=== PATIENT | female | born 1980 | race Caucasian/White ===

== ENCOUNTER 2022-02-08 10:00 | Outpatient (RCR) | payer BC, SELFPAY | END 2022-04-02 14:36 | disposition home or self-care (01) | PROVIDERS: PCP Family Medicine; Visit Provider Family Medicine | DX: M25.519 Pain in unspecified shoulder (principal); Z51.89 Encounter for other specified aftercare | CPT/HCPCS: 97032; 97110; 97162 ==

== ENCOUNTER 2022-08-28 19:47 | Emergency (ER) | payer OTHER, SELFPAY ==
[2022-08-28 19:51] VITALS: BP 140/86; PULSE 102; RESP 18; TEMP 36.5; O2SAT 98; BMI 27.1
--- NOTE | 2022-08-28 20:09 | CRLHL7_ITS ---
For Patients: As a result of the Cures Act, medical imaging exams and procedure reports are released immediately into your electronic medical record. You may view this report before your referring provider. If you have questions, please contact your health care provider. INDICATION: Twisted upon falling, knee injury TECHNIQUE: Knee radiograph 4 views left COMPARISON: None FINDINGS: Bone: No acute fractures or aggressive bone lesions are identified. A prominent femoral condylar notch is noted. Joint: The medial, lateral, and patellofemoral compartments are unremarkable. No significant knee effusion is seen. Soft tissue: Unremarkable. No radiopaque foreign bodies are seen. IMPRESSIONS: 1. A prominent femoral condylar notch is noted. This can be associated with ACL injury and correlation with trauma history is recommended. Dictated by Colin Conner MD @ 08/28/2022 9:14:50 PM Dictated by: Colin Conner MD @ 08/28/2022 21:14:53 (Electronically Signed)
--- NOTE | 2022-08-28 20:09 | CRLHL7_ITS ---
For Patients: As a result of the Century Cures Act, medical imaging exams and procedure reports are released immediately into your electronic medical record. You may view this report before your referring provider. If you have questions, please contact your health care provider. INDICATION: Fall, foot pain, injury TECHNIQUE: Foot radiograph 3 views left COMPARISON: None FINDINGS: Bone: No acute fractures or aggressive bone lesions are identified. A radiographic marker is noted over the dorsal midfoot, designating the site of maximal reported symptoms. Joint: Mild osteoarthritis of the talonavicular joint is noted on the lateral exam. No significant ankle effusion is seen. Soft tissue: Unremarkable. No radiopaque foreign bodies are seen. IMPRESSION: 1. No acute osseous injuries or abnormalities are noted. Dictated by Colin Conner MD @ 08/28/2022 9:15:59 PM Dictated by: Colin Conner MD @ 08/28/2022 21:16:02 (Electronically Signed)
--- NOTE | 2022-08-28 20:10 | ED_ITS ---
HPI - Extremity Injury (Lower) General Chief Complaint: Extremity Pain/Injury, Lower Stated Complaint: Left leg injury Time Seen by Provider: 08/28/22 20:03 History of Present Illness HPI Narrative: This 41-year-old female comes in with an injury to her left lower extremity. She states that she has a little dog at home and was maneuvering to avoid stepping on the dog that was in the way of her path. She slipped on some gravel as she tried to extend her step and fell onto her left knee. She has bruising and swelling over the anterior aspect of her left knee and also has some bruising over the dorsal aspect of her foot near the 3rd 4th and 5th toes. She did not hit her head or have loss of consciousness. She was not able to get up and bear weight on her left lower extremity after this injury. Related Data Home Medications Medication Instructions Recorded Confirmed ibuprofen 400 mg tablet 400 mg PO TID PRN 08/26/21 03/09/22 duloxetine 20 mg capsule,delayed 40 mg PO QDAY 04/28/22 release fluoxetine 10 mg capsule mg PO 08/28/22 Previous Rx's Medication Instructions Recorded buspirone 10 mg tablet 10 mg PO TID #90 tabs 04/23/22 propranolol 20 mg tablet 20 mg PO TID #90 tabs 05/07/22 zolpidem 5 mg tablet 5 mg PO QHS PRN insomnia #30 tabs 05/07/22 sertraline 50 mg tablet 50 mg PO QDAY #30 tabs 05/20/22 gabapentin 100 mg capsule See Rx Instructions PO TID #120 06/08/22 caps sertraline 100 mg tablet 100 mg PO QDAY #90 tabs 06/24/22 hydroxyzine HCl 25 mg tablet 25 mg PO TID PRN anxiety #30 tabs 07/06/22 alprazolam 0.5 mg tablet 0.5 mg PO BID #28 tabs 08/17/22 Crutches- Adult #1 ea 08/28/22 Allergies Allergy/AdvReac Type Severity Reaction Status Date / Time amoxicillin [From Augmentin] Allergy Unknown N/V Verified 04/28/22 09:52 clavulanic acid Allergy Unknown N/V Verified 04/28/22 09:52 [From Augmentin] codeine Allergy Unknown N/V Verified 04/28/22 09:52 lactose Allergy Unknown Verified 04/28/22 09:52 Review of Systems Status of ROS: Reports: 10 or more systems reviewed and unremarkable except as noted in History and below Narrative: Constitutional: No fevers, no weight gain or loss. Eyes: No discharge. No vision changes. HENT: No congestion, no sore throat, no ear pain. Cardiovascular: No chest pain, no palpitations. Respiratory: No shortness of breath, no wheezes, no cough. Gastrointestinal: No abdominal pain, no vomiting, no diarrhea. Genitourinary: No dysuria, no hematuria. Musculoskeletal: Left knee and foot injury as described above. Skin: No rashes, no pruritis. Neurological: No dizziness, weakness, sensory change, speech change. Endo/Heme/Allergies: No bruising or bleeding. No polydipsia. Pysch: no suicidality, no anxiety, no insomnia. All other systems reviewed and are negative. [facility] Surgical History History of abdominal supracervical subtotal hysterectomy (2005) History of loop electrosurgical excision procedure (LEEP) of cervix (2003) Status post cholecystectomy Status post colposcopy (08/10/21) Status post partial colectomy Family History Other Breast cancer Diabetes Rheumatoid arteritis Social History Narrative: Former smoker Quit 2016 Smoking Status: Former smoker Little interest or pleasure in doing things: nearly every day Feeling down, depressed, or hopeless: nearly every day Exam Narrative: Exam Narrative: Constitutional: Well-developed, well-nourished, no acute distress. HEENT: Normocephalic, atraumatic. Neck: Normal range of motion. Nontender. Supple. Heart: Regular. No murmurs. Normal rate. Intact distal pulses. Lungs: Clear to auscultation. No chest discomfort. No wheezes, rhonchi, or rales. Abdomen: Normal bowel sounds. Nontender. No rebound tenderness. Genitalia: Deferred. Back: No midline tenderness. Normal range of motion. Extremities: Erythema and some bruising with tenderness and mild swelling over the anterior aspect of the left knee. Bruising with mild swelling over the dorsal aspect of the distal portion of the 3rd 4th and 5th metatarsals of the left foot. Skin: Intact. No rash. Warm. No erythema or pallor. Neurologic: No altered sensation. No weakness. Alert and oriented. Psychiatric: No suicidality. No anxiety or depression. No insomnia. Nursing notes and vitals signs are reviewed. Const: Vital Signs, click to edit/add: Vital Signs - 24 hr 08/28/22 19:51 Temperature 97.7 F Pulse Rate [Pulse Oximeter] 102 H Respiratory Rate 18 Blood Pressure [Le ft Upper Arm] 140/86 H Pulse Oximetry 98 Oxygen Delivery Me thod Room Air Course Vital Signs Vital signs: Initial Vital Signs Temperature 97.7 F 08/28/22 19:51 Temperature Source Temporal Artery Scan 08/28/22 19:51 Pulse Rate 102 H 08/28/22 19:51 Respiratory Rate 18 08/28/22 19:51 Blood Pressure 140/86 H 08/28/22 19:51 Blood Pressure Mean 104 08/28/22 19:51 Blood Pressure Position Supine 08/28/22 19:51 Pulse Oximetry 98 08/28/22 19:51 Oxygen Delivery Method Room Air 08/28/22 19:51 Vital Signs Temperature 97.7 F 08/28/22 19:51 Pulse Rate 102 H 08/28/22 19:51 Respiratory Rate 18 08/28/22 19:51 Blood Pressure 140/86 H 08/28/22 19:51 Pulse Oximetry 98 08/28/22 19:51 Oxygen Delivery Method Room Air 08/28/22 19:51 Temperature 97.7 F 08/28/22 19:51 Pulse Rate 102 H 08/28/22 19:51 Respiratory Rate 18 08/28/22 19:51 Blood Pressure 140/86 H 08/28/22 19:51 Pulse Oximetry 98 08/28/22 19:51 Oxygen Delivery Method Room Air 08/28/22 19:51 MDM - Extremity Injury (Lower) MDM Narrative Medical decision making narrative: This patient has some bruising and pain at her left knee and her left foot. X- ray images by my review in by radiology report show no sign of fracture or dislocation. I was unable to do a good exam to check for ligament instability because the patient's pain was not allowing enough cooperation at the time. She did receive a knee immobilizer and crutches and was able to ambulate with these in place. The patient also received [place] for pain relief. She does have a follow-up appointment with her primary physician at the end of this week. She did receive a prescription for a few more tablets of Tramadol. Imaging Data XR L Knee: Radiologist's impression: 1. A prominent femoral condylar notch is noted. This can be associated with ACL injury and correlation with trauma history is recommended. XR L Foot: Radiologist's impression: No osseous injury. Discharge Plan Discharge Clinical Impression: Injury of foot, left, Injury of knee, left Patient Disposition: Home w/ Parent or Adult Condition: Stable Additional Instructions: Increase activity as tolerated with assistance of knee immobilizer and crutches as needed. Take medication as needed and directed. Follow up with MD as scheduled or return if worsening. Prescriptions: New (DME) Crutches- Adult Misc See Rx Instructions .ROUTE .MEDSUPPLY Qty: 1 0RF Rx Instructions: As directed No Action duloxetine 20 mg capsule,delayed release(DR/EC) 40 mg PO QDAY fluoxetine 10 mg capsule PO ibuprofen 400 mg tablet 400 mg PO TID PRN buspirone 10 mg tablet 10 mg PO TID Qty: 90 3RF zolpidem 5 mg tablet 5 mg PO QHS PRN (Reason: insomnia) Qty: 30 1RF propranolol 20 mg tablet 20 mg PO TID Qty: 90 5RF sertraline 50 mg tablet 50 mg PO QDAY Qty: 30 1RF gabapentin 100 mg capsule See Rx Instructions PO TID Qty: 120 11RF Rx Instructions: 100 mg q.a.m. and Q midday and 200 mg q.h.s. orally; sertraline 100 mg tablet 100 mg PO QDAY Qty: 90 3RF hydroxyzine HCl 25 mg tablet 25 mg PO TID PRN (Reason: anxiety) Qty: 30 5RF alprazolam 0.5 mg tablet 0.5 mg PO BID Qty: 28 0RF Follow Up/Referrals: Ibrahima Sanches MD [Primary Care Provider] - Stand Alone Forms: [facility] Info Instructions
[2022-08-28] MEDS: HYDROCODONE-ACETAMIN 5-325 MG 1 TAB 2 TAB PO (21:05)
== END 2022-08-28 21:22 | disposition home or self-care (01) ==
PROVIDERS: Emergency Provider Emergency Medicine Emergency Medical Services; PCP Family Medicine
DX: M25.562 Pain in left knee (principal); M79.672 Pain in left foot
CPT/HCPCS: 73562; 73630; 99283; 99284; A9270

== ENCOUNTER 2022-09-03 08:28 | Outpatient (CLI) | payer OTHER, SELFPAY | END 2022-09-03 08:29 | disposition home or self-care (01) | PROVIDERS: PCP Family Medicine; Visit Provider Family Medicine | DX: Z00.00 Encounter for general adult medical examination without abnormal findings (principal); Z13.6 Encounter for screening for cardiovascular disorders; Z13.1 Encounter for screening for diabetes mellitus | CPT/HCPCS: 80048; 80061 ==

== ENCOUNTER 2022-09-07 15:51 | Emergency (ER) | payer OTHER, SELFPAY ==
[2022-09-07 16:08] VITALS: BP 125/81; PULSE 93; RESP 20; TEMP 36.6; O2SAT 98; BMI 28.1
--- NOTE | 2022-09-07 20:03 | ED.ANXIETY ---
HPI - Anxiety General Date Seen: 09/07/22 Chief Complaint: Anxiety Stated Complaint: Panic attack Time Seen by Provider: 09/07/22 16:10 Source: patient Mode of arrival: ambulatory Limitations: no limitations History of Present Illness HPI narrative: Patient is a 41-year-old female who struggles with chronic anxiety. She recently was switched from sertraline 150 mg daily to Prozac 10 mg daily as she did not feel that the sertraline was working any longer. There is no plan to titrate the Prozac dose upward. Over the past month she has continued to worsen. She denies depression but has severe anxiety on a daily basis. She is having panic attacks on a daily basis. She is using Xanax once or twice a day but it does not seem to be making a difference. She is continuing to go to work but otherwise just sits at home and worries. She is sleeping poorly, she is not eating, she feels like she is going crazy. No substance use. She has set up an appointment with a therapist next week. Related Data Home Medications Medication Instructions Recorded Confirmed ibuprofen 400 mg tablet 400 mg PO TID PRN 08/26/21 09/03/22 fluoxetine 10 mg capsule 10 mg PO 08/28/22 09/03/22 Previous Rx's Medication Instructions Recorded hydroxyzine HCl 25 mg tablet 25 mg PO TID PRN anxiety #30 tabs 07/06/22 Crutches- Adult #1 ea 08/28/22 alprazolam 0.5 mg tablet 0.5 mg PO BID #28 tabs 09/03/22 fluoxetine 40 mg capsule (Prozac) 40 mg PO QAM #30 caps 09/07/22 lorazepam 1 mg tablet (Ativan) 1 mg PO TID PRN #30 tabs 09/07/22 Allergies Allergy/AdvReac Type Severity Reaction Status Date / Time amoxicillin [From Augmentin] Allergy Unknown N/V Verified 09/07/22 16:17 clavulanic acid Allergy Unknown N/V Verified 09/07/22 16:17 [From Augmentin] codeine Allergy Unknown N/V Verified 09/07/22 16:17 lactose Allergy Unknown Verified 09/07/22 16:17 Review of Systems Narrative: Review of systems is outlined above otherwise noted to be negative. [facility] Medical History Carcinoma in situ of cervix (2003) ?D06.9 - Carcinoma in situ of cervix, unspecified (ICD-10) Adhesive capsulitis ?M75.00 - Adhesive capsulitis of unspecified shoulder (ICD-10) Surgical History Status post cone biopsy of cervix ?Z98.890 - Other specified postprocedural states (ICD-10) Status post colposcopy (08/10/21) ?Z98.890 - Other specified postprocedural states (ICD-10) History of loop electrosurgical excision procedure (LEEP) of cervix (2003) ?Z98.890 - Other specified postprocedural states (ICD-10) History of abdominal supracervical subtotal hysterectomy (2005) ?Z90.711 - Acquired absence of uterus with remaining cervical stump (ICD-10) Status post partial colectomy ?Z90.49 - Acquired absence of other specified parts of digestive tract (ICD-10) Status post cholecystectomy ?Z90.49 - Acquired absence of other specified parts of digestive tract (ICD-10) Family History Other Breast cancer Diabetes Rheumatoid arteritis Social History Narrative: Former smoker Quit 2017 In the past 12 months, utilities in danger of being shut off: no In the past 12 mos, have been you worried that your food would run out before you had money to buy more?: never true In the past 12 mos, the food you bought just didn't last and you didn't have money to buy more?: never true Smoking Status: Former smoker How often do you have a drink containing alcohol: never AUDIT-C Alcohol total score: 0 How often does anyone, including family, friends and others, physically hurt you: never How often does anyone, including family, friends and others, insult or talk down to you: never How often does anyone, including family, friends and others, threaten you with harm: never How often does anyone, including family, friends and others, scream or curse at you: never Little interest or pleasure in doing things: more than half the days Feeling down, depressed, or hopeless: nearly every day Exam Narrative: Exam Narrative: 20 minutes spent with the patient exclusively in counseling. She is tearful and anxious. No abnormal thought processes identified. She is grateful for the explanation that her Prozac dose is much smaller than her sertraline dose was and I think that is likely responsible for her worsening symptoms. She may have some tolerance buildup to Xanax and would do better on a different medication in the short term. Const: Vital Signs, click to edit/add: Vital Signs - 24 hr 09/07/22 16:08 Temperature 97.8 F Pulse Rate [Pulse Oximeter] 93 Respiratory Rate 20 Blood Pressure [Ri ght Upper Arm] 125/81 Pulse Oximetry 98 Oxygen Delivery Me thod Room Air Course Course Hospital Course: Patient was seen and examined and we had a good discussion. No formal physical exam was done. Vital Signs Vital signs: Initial Vital Signs Temperature 97.8 F 09/07/22 16:08 Temperature Source Temporal Artery Scan 09/07/22 16:08 Pulse Rate 93 09/07/22 16:08 Pulse Rhythm Regular 09/07/22 16:08 Pulse Strength 3+ Normal 09/07/22 16:08 Respiratory Rate 20 09/07/22 16:08 Blood Pressure 125/81 09/07/22 16:08 Blood Pressure Mean 95 09/07/22 16:08 Blood Pressure Position Sitting 09/07/22 16:08 Pulse Oximetry 98 09/07/22 16:08 Oxygen Delivery Method Room Air 09/07/22 16:08 Vital Signs Temperature 97.8 F 09/07/22 16:08 Pulse Rate 93 09/07/22 16:08 Respiratory Rate 20 09/07/22 16:08 Blood Pressure 125/81 09/07/22 16:08 Pulse Oximetry 98 09/07/22 16:08 Oxygen Delivery Method Room Air 09/07/22 16:08 Temperature 97.8 F 09/07/22 16:08 Pulse Rate 93 09/07/22 16:08 Respiratory Rate 20 09/07/22 16:08 Blood Pressure 125/81 09/07/22 16:08 Pulse Oximetry 98 09/07/22 16:08 Oxygen Delivery Method Room Air 09/07/22 16:08 Discharge Plan Discharge Clinical Impression: Acute anxiety Patient Disposition: Home, Self-Care Condition: Improved Additional Instructions: Increase Prozac to 20 mg daily for one week and then increase to 40 mg daily. The switch from Xanax to Ativan 1 mg 3 times daily as needed. Keep your follow-up appointment with your psychologist. Follow-up with Dr. Sanches in 2-3 weeks. Prescriptions: New fluoxetine [Prozac] 40 mg capsule 40 mg PO QAM Qty: 30 0RF lorazepam [Ativan] 1 mg tablet 1 mg PO TID PRNQty: 30 0RF No Action fluoxetine 10 mg capsule 10 mg PO (DME) Crutches- Adult Misc See Rx Instructions .ROUTE .MEDSUPPLY Qty: 1 0RF Rx Instructions: As directed ibuprofen 400 mg tablet 400 mg PO TID PRN hydroxyzine HCl 25 mg tablet 25 mg PO TID PRN (Reason: anxiety) Qty: 30 5RF alprazolam 0.5 mg tablet 0.5 mg PO BID Qty: 28 0RF Follow Up/Referrals: Ibrahima Sanches MD [Primary Care Provider] - Stand Alone Forms: [facility] Info Instructions
== END 2022-09-07 17:59 | disposition home or self-care (01) ==
PROVIDERS: Emergency Provider Family Medicine; PCP Family Medicine
DX: F41.9 Anxiety disorder, unspecified (principal)
CPT/HCPCS: 99282; 99283

== ENCOUNTER 2022-09-14 13:11 | Outpatient (CLI) | payer OTHER, SELFPAY | END 2022-09-14 13:12 | disposition home or self-care (01) | LOC: NFLDREF 09-15 08:45 | PROVIDERS: PCP Family Medicine; Referring Provider Family Medicine; Visit Provider Family Medicine | DX: R19.7 Diarrhea, unspecified (principal) | CPT/HCPCS: 87045; 87046; 87077; 87427; 87493 ==

== ENCOUNTER 2022-09-15 15:05 | Outpatient (CLI) | payer OTHER, SELFPAY | END 2022-09-15 15:06 | disposition home or self-care (01) | LOC: NFLDREF 09-16 05:50 | PROVIDERS: PCP Family Medicine; Referring Provider Family Medicine; Visit Provider Family Medicine | DX: R19.7 Diarrhea, unspecified (principal) | CPT/HCPCS: 87493 ==

== ENCOUNTER 2022-09-18 16:22 | Outpatient (CLI) | payer OTHER, SELFPAY | END 2022-09-18 16:23 | disposition home or self-care (01) | LOC: AMB 09-19 09:33 | PROVIDERS: PCP Family Medicine; Visit Provider Family Medicine | DX: R51.9 Headache, unspecified (principal) | CPT/HCPCS: A0425; A0427 ==

== ENCOUNTER 2022-09-18 16:47 | Emergency (ER) | payer OTHER, SELFPAY ==
[2022-09-18] VITALS (37 sets, daily range): BP systolic 102–125; BP diastolic 64–90; PULSE 62–118; RESP 16–18; TEMP 36.1; O2SAT 94–99; BMI 28.6
--- NOTE | 2022-09-18 16:58 | CRLHL7_ITS ---
For Patients: As a result of the Cures Act, medical imaging exams and procedure reports are released immediately into your electronic medical record. You may view this report before your referring provider. If you have questions, please contact your health care provider. INDICATION: Syncope, closed head injury TECHNIQUE: CT maxillofacial without contrast. COMPARISON: None FINDINGS: Facial bones: No fractures or bone lesions. Specifically the nasal bones, temporomandibular joints, maxilla and mandible appear intact. Orbits and globes: Unremarkable. Globes are intact. No sign of intraorbital hemorrhage or emphysema. Sinuses: No acute or significant findings. Soft tissues: Unremarkable. IMPRESSION: No facial bone fractures. Normal exam. Please note that all CT scans at this facility use dose modulation, iterative reconstruction, and/or weight-based dosing when appropriate to reduce radiation dose to as low as reasonably achievable. Dictated by Clinton Riojas MD @ 09/18/2022 6:27:06 PM (Electronically Signed)
--- NOTE | 2022-09-18 16:58 | CRLHL7_ITS ---
For Patients: As a result of the Century Cures Act, medical imaging exams and procedure reports are released immediately into your electronic medical record. You may view this report before your referring provider. If you have questions, please contact your health care provider. INDICATION: Syncope. Closed head injury. TECHNIQUE: CT head without contrast. COMPARISON: 04/05/[address] FINDINGS: CSF spaces: Within normal limits for age. Brain parenchyma and extra-axial spaces: The mccloud-white differentiation is normal. No sign of mass, hemorrhage, or midline shift. No extra-axial fluid collection. Skull base and calvarium: The visualized paranasal sinuses and mastoid air cells demonstrate no acute or significant findings. The visualized orbits are grossly unremarkable. No skull fractures. IMPRESSION: No acute intracranial findings. Please note that all CT scans at this facility use dose modulation, iterative reconstruction, and/or weight-based dosing when appropriate to reduce radiation dose to as low as reasonably achievable. Dictated by Clinton Riojas MD @ 09/18/2022 6:16:10 PM (Electronically Signed)
--- NOTE | 2022-09-18 16:59 | CRLHL7_ITS ---
For Patients: As a result of the Century Cures Act, medical imaging exams and procedure reports are released immediately into your electronic medical record. You may view this report before your referring provider. If you have questions, please contact your health care provider. INDICATION: Syncope, closed head injury TECHNIQUE: CT cervical spine without contrast. COMPARISON: 04/05/[address] FINDINGS: Vertebrae: Alignment is normal. There are no fractures or suspicious bony lesions. Discs and facet joints: Disc spaces and facets are within normal limits. Extraspinal findings: Prevertebral soft tissues, visualized airway, and visualized lungs are unremarkable. IMPRESSION: Normal cervical spine CT. Please note that all CT scans at this facility use dose modulation, iterative reconstruction, and/or weight-based dosing when appropriate to reduce radiation dose to as low as reasonably achievable. Dictated by Clinton Riojas MD @ 09/18/2022 6:20:23 PM (Electronically Signed)
--- NOTE | 2022-09-18 17:12 | ED_ITS ---
HPI - General Adult General Chief complaint: Syncope/Fainted Stated complaint: Fall Time Seen by Provider: 09/18/22 16:58 History of Present Illness HPI narrative: pt started doxazosin 09/15. today had syncopal episode at home alone, hit doorway woke up to dogs licking her face. lac to R brow. tried driving slf to hospital. had to stop at [place] due to bleeding. c-collar on, ems gave pt 50 + 25 of fentanyl 41-year-old woman presenting to the emergency department [facility] the EMS after syncope in her home of unclear origin or down time. Recently did start a new medication of doxazosin. She has no known cardiac disease or dysrhythmia. No history of seizures. On further discussion later denies suicidal ideation. Admittedly struggling with anxieties. Brought in via EMS [facility]. Is able to recount these events eventually. Head on our prior taken new prescription of doxazosin. It sounds like notes this because upon prescription provider head said that this could contribute to some lightheadedness. She had finished putting on her makeup and doubly subsequently had just gotten up to return to the bathroom when became lightheaded and fell against the door way. Will to dog licking her face which was apparently bloody. She try to drive herself to the hospital but due to bleeding and possibly lightheadedness stopped at [facility] police department assisted ultimately by EMS. Placed in C- collar at that time given fentanyl. She is requesting more pain medication complaining of very intense headache. No visual disturbance. Some nausea. No neck or back pain. No abdominal pain. No shortness of breath. Has been having some loose/diarrheal stools absent melena or hematochezia for some time. Related Data Home Medications Medication Instructions Recorded Confirmed ibuprofen 400 mg tablet 400 mg PO TID PRN 08/26/21 09/03/22 fluoxetine 10 mg capsule 10 mg PO 08/28/22 09/03/22 Previous Rx's Medication Instructions Recorded hydroxyzine HCl 25 mg tablet 25 mg PO TID PRN anxiety #30 tabs 07/06/22 Crutches- Adult #1 ea 08/28/22 alprazolam 0.5 mg tablet 0.5 mg PO BID #28 tabs 09/03/22 fluoxetine 40 mg capsule (Prozac) 40 mg PO QAM #30 caps 09/07/22 peg 3350-electrolytes 236 240 ml PO Q10M #4,000 mL 09/14/22 gram-22.74 gram-6.74 gram-5.86 gram solution (Golytely) lorazepam 1 mg tablet (Ativan) See Rx Instructions PO .ud PRN 09/15/22 anxiety #30 tabs potassium chloride 20 mEq 20 meq PO DAILY #15 tabs 09/18/22 tablet,extended release Allergies Allergy/AdvReac Type Severity Reaction Status Date / Time amoxicillin [From Augmentin] Allergy Unknown N/V Verified 09/07/22 16:17 clavulanic acid Allergy Unknown N/V Verified 09/07/22 16:17 [From Augmentin] codeine Allergy Unknown N/V Verified 09/07/22 16:17 lactose Allergy Unknown Verified 09/07/22 16:17 Review of Systems Status of ROS: Reports: 6 or more systems reviewed and unremarkable except as noted in History and below [facility] Medical History Carcinoma in situ of cervix (2003) ?D06.9 - Carcinoma in situ of cervix, unspecified (ICD-10) Adhesive capsulitis ?M75.00 - Adhesive capsulitis of unspecified shoulder (ICD-10) Surgical History Status post cone biopsy of cervix ?Z98.890 - Other specified postprocedural states (ICD-10) Status post colposcopy (08/10/21) ?Z98.890 - Other specified postprocedural states (ICD-10) History of loop electrosurgical excision procedure (LEEP) of cervix (2003) ?Z98.890 - Other specified postprocedural states (ICD-10) History of abdominal supracervical subtotal hysterectomy (2005) ?Z90.711 - Acquired absence of uterus with remaining cervical stump (ICD-10) Status post partial colectomy ?Z90.49 - Acquired absence of other specified parts of digestive tract (ICD- 10) Status post cholecystectomy ?Z90.49 - Acquired absence of other specified parts of digestive tract (ICD- 10) Family History Other Breast cancer Diabetes Rheumatoid arteritis Social History Narrative: Former smoker Quit 2017 In the past 12 months, utilities in danger of being shut off: no In the past 12 mos, have been you worried that your food would run out before you had money to buy more?: never true In the past 12 mos, the food you bought just didn't last and you didn't have money to buy more?: never true Smoking Status: Former smoker Do you use any of these nicotine containing products: None How often do you have a drink containing alcohol: never AUDIT-C Alcohol total score: 0 Non-prescribed substance use: denies use How often does anyone, including family, friends and others, physically hurt you : never How often does anyone, including family, friends and others, insult or talk down to you: never How often does anyone, including family, friends and others, threaten you with harm: never How often does anyone, including family, friends and others, scream or curse at you: never Little interest or pleasure in doing things: more than half the days Feeling down, depressed, or hopeless: nearly every day Exam Narrative: Exam Narrative: Generally blunted, flatter affect. Pleasant. Distant. In a C-collar. Little over 3/4 inch laceration at the outer 3rd of the right eyebrow. More of a scrape and intradermal laceration. Linear. Diagonal. There is a tag at the upper aspect. Dried blood over the right side of her face though. Extraocular movements are intact and fluid without nystagmus.Moving all extremities without difficulty. Dentition intact. No fluid at external ear canal. Breathing easily. Lungs are clear. Has no pain to palpation about the back. No deformity. Heart in an elevated rate without murmur rub or gallop. Regular rhythm. Abdomen is soft and nontender. Const: Vital Signs, click to edit/add: Vital Signs - 24 hr 09/18/22 16:50 09/18/22 16:58 Temperature 96.9 F L Pulse Rate [Pulse Oximeter] 118 H Respiratory Rate 18 Blood Pressure [Ri ght Upper Arm] 125/85 Pulse Oximetry 94 96 Oxygen Delivery Me thod Room Air Documenting provider has reviewed patient's vital signs: yes Course Vital Signs Vital signs: Initial Vital Signs Temperature 96.9 F L 09/18/22 16:50 Temperature Source Temporal Artery Scan 09/18/22 16:50 Pulse Rate 118 H 09/18/22 16:50 Respiratory Rate 18 09/18/22 16:50 Blood Pressure 125/85 09/18/22 16:50 Blood Pressure Mean 98 09/18/22 16:50 Blood Pressure Position Supine 09/18/22 16:50 Pulse Oximetry 94 09/18/22 16:50 Oxygen Delivery Method Room Air 09/18/22 16:50 Vital Signs Temperature 96.9 F L 09/18/22 16:50 Pulse Rate 118 H 09/18/22 16:50 Respiratory Rate 18 09/18/22 16:50 Blood Pressure 125/85 09/18/22 16:50 Pulse Oximetry 94 09/18/22 16:50 Oxygen Delivery Method Room Air 09/18/22 16:50 Temperature 96.9 F L 09/18/22 16:50 Pulse Rate 73 09/18/22 22:04 Respiratory Rate 16 09/18/22 22:04 Blood Pressure 111/77 09/18/22 22:04 Pulse Oximetry 99 09/18/22 22:04 Oxygen Delivery Method Room Air 09/18/22 22:04 Medical Decision Making MDM Narrative Medical decision making narrative: Cecily does endorse having a new therapist locally last name I believe is Ap. She does endorse Dr. Sanches as primary care provider. She does describe not entirely amiable relationship at home. What brings her here today does sound to have been an orthostatic event. This is also in the setting of diarrhea and probably some degree of dehydration. Did spend some time in conversation with who arrives later. Has been expressing some concerns of distant and erratic behavior. Not sticking with treatment as prescribed. Jumping from provider to provider and medication. Family is concerned. He describes marked mood lability. says he just wants to have his back the way she used to be. He is wondering what they can do. Apparently there has been recent discovery of some return of cervical cancer which believes is adding to stress. There is some question of suicidal ideation. And labs are essentially unremarkable. Potassium the little bit low at 3.1. Do not think will tolerate IV replacement. CT of head is requested but also cervical spine has I think the degree of pain she is describing might be distracting. Also ordered for facial bones. All imaging by my read and radiology over-read is absent acute abnormality. I do return to address this easily bleeding laceration. Discuss treatment options. This is almost 2 mm wide and so I think that this results in scar would be rather noticeable within the eyebrow. Recommendation actually is for more closure than pressure and Band-Aid or even Steri-Strips. I do not think Steri-Strips will provide closure assistance. After discussion of options we do proceed with suturing. Returned to inject with lidocaine with epinephrine. Undermined tissue with scalpel and closed with 5-0 Ethilon interrupted sutures. Markedly improved wound approximation is achieved. Only lightly oozing blood. Antibiotic ointment and Band-Aid placed. Initiated on IV fluids antiemetics and lower dose morphine. Apparently does not help the headache. Further given another L of fluids, ketorolac and was ordered for [facility] but after further discussion of options ultimately was given low- dose/pain dose ketamine. Cecily think this particular interested in this for potential benefit for depression. While not disclosing much, I think her discussing this further does demonstrate some insight into her current situation. Pain seemed to be improved. Was able to rest. See patient discharge plan. Medical Records Medical records reviewed: Yes I reviewed the patient's medical records Lab Data Lab results reviewed: Yes I reviewed the patient's lab results Labs: Lab Results 09/18/22 Range/Units 17:08 WBC 4.88 (4.50-11.00) K/uL RBC 4.29 (4.00-5.20) m/uL Hgb 12.8 (12.0-16.0) gm/dL Hct 37.2 (33.0-51.0) % MCV 87 (80-100) fL MCH 30 (26-34) pg MCHC 34 (32-36) gm/dL RDW Coeff of Makenna 12.8 (11.5-15.5) % Plt Count 209 (140-440) K/uL Neut % (Auto) 69.3 (42.0-72.0) % Lymph % (Auto) 25.0 (20-44) % Hawkins % (Auto) 4.3 (0.0-11.0) % Eos % (Auto) 1.2 (0.0-7.0) % Baso % (Auto) 0.2 (0.0-3.0) % Neut # (Auto) 3.38 (1.7-7.0) K/uL Lymph # (Auto) 1.22 (0.90-2.90) K/uL Hawkins # (Auto) 0.20 (0.00-0.90) K/UL Eos # (Auto) 0.06 (0.00-0.50) K/uL Baso # (Auto) 0.01 (0.00-0.30) K/uL Abs Immat Gran (auto) 0.00 (0.00-0.30) K/uL Imm/Tot Granulo (auto) 0.0 % D-Dimer Quant (PE/DVT) 0.27 (0.00-0.50) ug/ml Sodium 138 (135-149) mmol/L Potassium 3.1 L (3.6-5.1) mmol/L Chloride 103 (96-114) mmol/L Carbon Dioxide 25 (20-32) mmol/L BUN 11 (5-24) mg/dL Creatinine 1.0 (0.5-1.5) mg/dL Estimated Creat Clear 70.71 Estimated GFR 73 ml/min Glucose 100 (60-115) mg/dL Calcium 9.0 (8.4-10.6) mg/dL Total Bilirubin 1.3 (0.1-1.5) mg/dL Direct Bilirubin 0.1 (0.0-0.5) mg/dL AST 25 (12-35) U/L ALT 23 (4-35) U/L Alkaline Phosphatase 63 (40-150) U/L Troponin I < 0.01 L (0.01-0.04) ng/mL C-Reactive Protein < 0.5 L (0.5-1.0) mg/dL NT-Pro-B Natriuret Pep < 20 pg/mL Total Protein 7.3 (6.0-8.3) g/dL Albumin 4.3 (3.3-5.0) g/dL POC Troponin I 0.00 L (0.01-0.04) ng/ml ECG Data Attestation: I personally reviewed and interpreted this ECG as follows: (Sinus tachycardia at 118 with prominent P wave) Critical Care Time Critical Care Time Critical Care Time: Yes Attestation: The patient required my highest level preparedness to intervene emergently and I personally spent this critical care time directly and personally managing the patient. This critical care time included: Obtaining a history; Examining the patient; Pulse oximetry; Ordering and reviewing of studies; Arranging urgent treatment with development of a management plan; Evaluation of patients response to treatment; Frequent reassessment discussions with other providers. This critical care time was performed to assess and manage the high probability of imminent life-threatening deterioration that could result in multiorgan failure. It was exclusive of separate billable procedures and treating other patients and teaching time. Total Critical Care Time in Minutes: 55 Discharge Plan Discharge Clinical Impression: Closed head injury, Diarrhea, Orthostatic syncope, Hypokalemia, Laceration of brow without complication Patient Disposition: Home w/ Parent or Adult Condition: Improved Additional Instructions: sutures out in 6 days. antibiotic ointment for 3 days and then to a dry dressing. ok to get wet but try not to soak while sutures are in. for further scar reduction/wound healing if desired -- after the scab falls off, can apply daily vitamin e oil, emu oil or something like maderma or silicone-containing ointments or bandaids daily. especially protect from sun exposure for the first 9 - 12 months. Watch for spreading redness after 2 days accompanied by heat, swelling, marked increase in pain, purulent drainage. Please follow-up with Dr. Sanches and your psychiatric care provider, I believe you told me Daun?, this coming week. I have prescribed some potassium for you over this next week and I am asking you to get your labs rechecked after that. Take loperamide for diarrhea unless you notice blood in your stool or are having a fever. Focus on hydration. Be sure to get quality and regular sleep. A little heart pumping exercise daily I think would be helpful generally for you. Take care in transitions though especially as you start taking this doxazosin regularly Signs or symptoms of a concussion might be nausea or headache upon exertion which can also be an indication to back off that level of activity and reassess in a week.? Concussion can also be represented by smoldering nausea or smoldering headache, difficulty with concentration, mood lability general somnolence, sense of persistent fog or dizziness/lightheadedness.? If these symptoms are becoming apparent and continuing beyond 7-10 days, be re-evaluated for further recommendations. Prescriptions: New potassium chloride 20 mEq tablet extended release 20 meq PO DAILY Qty: 15 0RF No Action fluoxetine [Prozac] 40 mg capsule 40 mg PO QAM Qty: 30 0RF fluoxetine 10 mg capsule 10 mg PO (DME) Crutches- Adult Misc See Rx Instructions .ROUTE .MEDSUPPLY Qty: 1 0RF Rx Instructions: As directed ibuprofen 400 mg tablet 400 mg PO TID PRN hydroxyzine HCl 25 mg tablet 25 mg PO TID PRN (Reason: anxiety) Qty: 30 5RF alprazolam 0.5 mg tablet 0.5 mg PO BID Qty: 28 0RF peg 3350-electrolytes [Golytely] 236-22.74-6.74 -5.86 gram recon soln 240 ml PO Q10M Qty: 4000 0RF Rx Instructions: until fecal effluent is clear lorazepam [Ativan] 1 mg tablet See Rx Instructions PO .ud PRN (Reason: anxiety) Qty: 30 0RF Rx Instructions: 1/2 tablet morning and midday, and 1 tablet at bedtime, prn. Must last 2 weeks orally Follow Up/Referrals: Ibrahima Sanches MD [Primary Care Provider] - (Dr. Sanches. Family expressing concerns regarding this patient's mental health. Was seen for unrelated trauma I think in the ER. I've asked her to follow up with you. Thank you. - Lilly) Stand Alone Forms: [facility] Info Instructions
[2022-09-18 17:24] LABS: Basophils Absolute Auto 0.01 K/uL (0.00-0.30); Basophils Percent Auto 0.2 % (0.0-3.0); Eosinophils Absolute Auto 0.06 K/uL (0.00-0.50); Eosinophils Percent Auto 1.2 % (0.0-7.0); Hematocrit 37.2 % (33.0-51.0); Hemoglobin* 12.8 gm/dL (12.0-16.0); Lymphocytes Absolute Auto 1.22 K/uL (0.90-2.90); Mean Corpuscular HGB Conc 34 gm/dL (32-36); Mean Corpuscular Hemoglobin 30 pg (26-34); Mean Corpuscular Volume 87 fL (80-100); Monocytes Percent Auto 4.3 % (0.0-11.0); Neutrophils Absolute Auto 3.38 K/uL (1.7-7.0); Neutrophils Percent Auto 69.3 % (42.0-72.0); Platelet Count* 209 K/uL (140-440); RDW Coefficient of Variation % 12.8 % (11.5-15.5); Red Blood Count 4.29 m/uL (4.00-5.20); White Blood Count* 4.88 K/uL (4.50-11.00)
[2022-09-18 17:26] LABS: Slide Review Reflex No
[2022-09-18 17:42] LABS: D Dimer Quantitative* 0.27 ug/ml (0.00-0.50)
[2022-09-18 17:52] LABS: Albumin* 4.3 g/dL (3.3-5.0); Chloride* 103 mmol/L (96-114); Potassium* 3.1 mmol/L (3.6-5.1); Sodium* 138 mmol/L (135-149)
[2022-09-18] MEDS: ONDANSETRON 2 MG/ML inj 4 MG IVP (17:52)
[2022-09-18] MEDS: 0.9 % SODIUM CHLORIDE 1000 ml 1,000 ML IV ×2 (17:52→19:48)
[2022-09-18] MEDS: MORPHINE 4 MG/ML INJ IVP (17:52)
[2022-09-18 17:54] LABS: Est. Creatinine Clearance* 70.71; Estimated Glomerular Filt Rate 73 ml/min
[2022-09-18 17:55] LABS: Alkaline Phosphatase* 63 U/L (40-150); Aspartate Amino Transferase* 25 U/L (12-35); Bilirubin Direct* 0.1 mg/dL (0.0-0.5); Bilirubin Total* 1.3 mg/dL (0.1-1.5); Blood Urea Nitrogen* 11 mg/dL (5-24); Carbon Dioxide* 25 mmol/L (20-32); Total Protein* 7.3 g/dL (6.0-8.3)
[2022-09-18 17:56] LABS: Alanine Aminotransferase* 23 U/L (4-35); Glucose* 100 mg/dL (60-115)
[2022-09-18] MEDS: HYDROmorphone 0.5 mg/0.5 ml inj IVP (18:13)
[2022-09-18 18:21] LABS: NT Pro B Type NatriureticPept* < 20 pg/mL; Troponin I* < 0.01 ng/mL (0.01-0.04)
[2022-09-18 18:22] LABS: C Reactive Protein* < 0.5 mg/dL (0.5-1.0)
[2022-09-18] MEDS: KETOROLAC 15 MG/ML inj IVP (19:48)
== END 2022-09-18 22:15 | disposition home or self-care (01) ==
PROVIDERS: Emergency Provider Family Medicine; PCP Family Medicine
DX: R55 Syncope and collapse (principal); S01.111A Laceration without foreign body of right eyelid and periocular area, initial encounter; E87.6 Hypokalemia; W19.XXXA Unspecified fall, initial encounter
CPT/HCPCS: 12011; 36415; 70450; 70486; 72125; 80048; 80076; 83880; 84484; 85025; 85379; 86140; 94761; 96365; 96375; 99284; 99291; J1170; J1885; J2270; J2405; J3490; J7030

== ENCOUNTER 2022-09-20 14:05 | Emergency (ER) | payer OTHER, SELFPAY ==
[2022-09-20 14:11] VITALS: BP 126/87; PULSE 82; RESP 14; TEMP 37.1; O2SAT 98; BMI 28.6
--- NOTE | 2022-09-20 14:41 | ED.HEATRA ---
HPI - Head Injury General Date Seen: 09/20/22 Chief complaint: Head Injury/Pain Stated complaint: pain over R eye Time Seen by Provider: 09/20/22 14:06 Source: patient Mode of arrival: ambulatory Limitations: no limitations History of Present Illness HPI Narrative: Patient is a 41-year-old female who was seen 2 days ago in the ER after a fall, at that point she had a CT of her head face and neck, all of which was interpreted by Radiology as normal, she has ongoing right-sided pain behind her right eye, she describes it almost double vision when she closes her left eye. She has pain radiates down her right side of her neck. She has no numbness tingling weakness, she has a small laceration that was nonsuturable noted within her right eyebrow. She finds dark of the room is improved, she has some nauseous Antoinette but has not vomited. She is trying Tylenol and ibuprofen. She is maybe she thinks that is the cause of this was she started a new medication per her psychiatrist called doxazosin, she seemed to have a syncopal MD Complaint: head injury, head pain and fall Mechanism of Injury: fall Place: home Loss of Consciousness: yes Location of injury: frontal Severity: moderate Other Injuries: laceration Associated symptoms: nausea Related Data Home Medications Medication Instructions Recorded Confirmed ibuprofen 400 mg tablet 400 mg PO TID PRN 08/26/21 09/20/22 fluoxetine 10 mg capsule 10 mg PO 08/28/22 09/03/22 Previous Rx's Medication Instructions Recorded hydroxyzine HCl 25 mg tablet 25 mg PO TID PRN anxiety #30 tabs 07/06/22 Crutches- Adult #1 ea 08/28/22 fluoxetine 40 mg capsule (Prozac) 40 mg PO QAM #30 caps 09/07/22 peg 3350-electrolytes 236 240 ml PO Q10M #4,000 mL 09/14/22 gram-22.74 gram-6.74 gram-5.86 gram solution (Golytely) lorazepam 1 mg tablet (Ativan) See Rx Instructions PO .ud PRN 09/15/22 anxiety #30 tabs potassium chloride 20 mEq 20 meq PO DAILY #15 tabs 09/18/22 tablet,extended release Allergies Allergy/AdvReac Type Severity Reaction Status Date / Time amoxicillin [From Augmentin] Allergy Unknown N/V Verified 09/07/22 16:17 clavulanic acid Allergy Unknown N/V Verified 09/07/22 16:17 [From Augmentin] codeine Allergy Unknown N/V Verified 09/07/22 16:17 lactose Allergy Unknown Verified 09/07/22 16:17 Review of Systems Status of ROS: Reports: 10 or more systems reviewed and unremarkable except as noted in History and below PFSH PFS Medical History Carcinoma in situ of cervix (2003) ?D06.9 - Carcinoma in situ of cervix, unspecified (ICD-10) Adhesive capsulitis ?M75.00 - Adhesive capsulitis of unspecified shoulder (ICD-10) Surgical History Status post cone biopsy of cervix ?Z98.890 - Other specified postprocedural states (ICD-10) Status post colposcopy (08/10/21) ?Z98.890 - Other specified postprocedural states (ICD-10) History of loop electrosurgical excision procedure (LEEP) of cervix (2003) ?Z98.890 - Other specified postprocedural states (ICD-10) History of abdominal supracervical subtotal hysterectomy (2005) ?Z90.711 - Acquired absence of uterus with remaining cervical stump (ICD-10) Status post partial colectomy ?Z90.49 - Acquired absence of other specified parts of digestive tract (ICD-10) Status post cholecystectomy ?Z90.49 - Acquired absence of other specified parts of digestive tract (ICD-10) Family History Other Breast cancer Diabetes Rheumatoid arteritis Social History Narrative: Former smoker Quit 2017 In the past 12 months, utilities in danger of being shut off: no In the past 12 mos, have been you worried that your food would run out before you had money to buy more?: never true In the past 12 mos, the food you bought just didn't last and you didn't have money to buy more?: never true Smoking Status: Former smoker Do you use any of these nicotine containing products: None How often do you have a drink containing alcohol: never AUDIT-C Alcohol total score: 0 Non-prescribed substance use: denies use How often does anyone, including family, friends and others, physically hurt you: never How often does anyone, including family, friends and others, insult or talk down to you: never How often does anyone, including family, friends and others, threaten you with harm: never How often does anyone, including family, friends and others, scream or curse at you: never Little interest or pleasure in doing things: more than half the days Feeling down, depressed, or hopeless: nearly every day Exam Narrative: Exam Narrative: Patient is a very nice 41-year-old female she is seen in room 3, she appears to be in no distress, articulate speaking normally but slightly photophobic. Pupils are equal round reactive to light she tracks normally with absence of nystagmus her fundi look normal bilaterally, she has mild swelling above her right eye, within the eyebrow, there is no evidence of infection redness, for significant really hematoma formation. Her neck is supple. She goes from 8-18 cm, side flexion is normal at 20? and rotation is greater than 75? bilaterally no palpable tenderness noted over C-spine, she has some mild right-sided paraspinal muscle tenderness noted. There is no lymphadenopathy. 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 Reflexes are normal. Review of previous note is done. Ring along with CT reports of head neck and face. Const: Vital Signs, click to edit/add: Vital Signs - 24 hr 09/20/22 14:11 09/20/22 15:35 Temperature 98.7 F Pulse Rate [Right Pulse Oximeter] 82 66 Respiratory Rate 14 14 Blood Pressure [Le ft Upper Arm] 126/87 117/81 Pulse Oximetry 98 97 Oxygen Delivery Me thod Room Air Room Air Course Course Hospital Course: I discussed with the patient that we will use IV fluids, along with the medications. On time doses of the above. Her headache will likely not be gone by the time she leaves, follow-up with primary care is suggested, she will be signed over to the oncoming ER physician. Reevaluation(s) Time of Reevaluation #1: 15:58 Reevaluation #1: Patient reports that she is no better, I discussed with her that at this point, time will help heal the legs symptoms of her concussion, I would not use narcotic medications for this. I would recommend she try the cyclobenzaprine at home. She discussed repeating the CT scan, given what I see in her absence of any neurological symptoms other than the pain that she is having, the previous CT of her head, neck, and her face, that were all read is negative, I think the likelihood of a finding here that will change our course is very very low. She agreed with me at this point. We will discharge her home to follow up with primary care. Note for work written. Vital Signs Vital signs: Initial Vital Signs Temperature 98.7 F 09/20/22 14:11 Temperature Source Temporal Artery Scan 09/20/22 14:11 Pulse Rate 82 09/20/22 14:11 Respiratory Rate 14 09/20/22 14:11 Blood Pressure 126/87 09/20/22 14:11 Blood Pressure Mean 100 09/20/22 14:11 Blood Pressure Position Sitting 09/20/22 14:11 Pulse Oximetry 98 09/20/22 14:11 Oxygen Delivery Method Room Air 09/20/22 14:11 Vital Signs Temperature 98.7 F 09/20/22 14:11 Pulse Rate 82 09/20/22 14:11 Respiratory Rate 14 09/20/22 14:11 Blood Pressure 126/87 09/20/22 14:11 Pulse Oximetry 98 09/20/22 14:11 Oxygen Delivery Method Room Air 09/20/22 14:11 Temperature 98.7 F 09/20/22 14:11 Pulse Rate 66 09/20/22 15:35 Respiratory Rate 14 09/20/22 15:35 Blood Pressure 117/81 09/20/22 15:35 Pulse Oximetry 97 09/20/22 15:35 Oxygen Delivery Method Room Air 09/20/22 15:35 MDM - Head Injury MDM Narrative Medical decision making narrative: Life-threatening differential diagnosis include subarachnoid hemorrhage, meningitis, encephalitis, carbon monoxide poisoning, and intracerebral hemorrhage. Other differential diagnosis include but not limited to migraine, cluster headache, tension headache, PRODUCTION SUPPORT SPECIALIST vasculitis, mass lesion, temporal arteritis, click acute closed angle glaucoma, septal and trigeminal neuralgia, sinusitis, closed head injury, and stroke Life-threatening differential diagnosis is considered include: Subarachnoid hemorrhage, subdural hemorrhage, epidural hemorrhage. Other differential diagnosis considered include concussion, closed head injury, or neck fracture. I discussed with her, that this is likely a concussion causing her symptoms, she has no previous history of headaches, I think there is really low suspicion of a significant head injury, and I would not repeat the CT scan at this point. I think a better, is to use a migraine-type concoction this see we can help some of them symptoms. I explained to her that her symptoms will not be gone, but and maybe mildly improves she can go home and sleep, she should not go to work until she has no head injury initial at this concussion improve. Avoidance of reading, phones, video games is also suggested. 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 Follow-up from the side effect of increasing the potentiation of this with the benzodiazepines and also these are somewhat contraindicated in head injury. Medical Records Attestation: I reviewed the patient's medical records. Discharge Plan Discharge Clinical Impression: Closed head injury, Postconcussion syndrome, Concussion with loss of consciousness Patient Disposition: Home, Self-Care Condition: Stable Instructions: Concussion (ED), Head Injury (DC), Cognitive Disorders after Traumatic Brain Injury (ED), Post Concussion Syndrome (ED) Additional Instructions: Home rest off work until headache improves. Follow-up with Dr. Castaneda later in the week. Tylenol ibuprofen, use of muscle relaxants for neck pain. Prescriptions: No Action fluoxetine [Prozac] 40 mg capsule 40 mg PO QAM Qty: 30 0RF fluoxetine 10 mg capsule 10 mg PO (DME) Crutches- Adult Misc See Rx Instructions .ROUTE .MEDSUPPLY Qty: 1 0RF Rx Instructions: As directed potassium chloride 20 mEq tablet extended release 20 meq PO DAILY Qty: 15 0RF ibuprofen 400 mg tablet 400 mg PO TID PRN hydroxyzine HCl 25 mg tablet 25 mg PO TID PRN (Reason: anxiety) Qty: 30 5RF peg 3350-electrolytes [Golytely] 236-22.74-6.74 -5.86 gram recon soln 240 ml PO Q10M Qty: 4000 0RF Rx Instructions: until fecal effluent is clear lorazepam [Ativan] 1 mg tablet See Rx Instructions PO .ud PRN (Reason: anxiety) Qty: 30 0RF Rx Instructions: 1/2 tablet morning and midday, and 1 tablet at bedtime, prn. Must last 2 weeks orally Follow Up/Referrals: Ibrahima Sanches MD [Primary Care Provider] - Stand Alone Forms: Incoming Media Info Instructions
[2022-09-20] MEDS: 0.9 % SODIUM CHLORIDE 1000 ml 1,000 ML IV (15:07)
[2022-09-20] MEDS: LORazepam 2 MG/ML inj 1 MG IVP (15:14)
[2022-09-20] MEDS: diphenhydrAMINE 50 MG/ML inj 25 MG IVP (15:16)
[2022-09-20] MEDS: KETOROLAC 30 MG/ML inj IVP (15:20)
[2022-09-20] MEDS: METOCLOPRAMIDE HCL 10 MG in 0.9 % SODIUM CHLORIDE 100 ml 100 ML 306 MG IVPB (15:27)
[2022-09-20 15:35] VITALS: BP 117/81; PULSE 66; RESP 14; O2SAT 97
== END 2022-09-20 16:16 | disposition home or self-care (01) ==
LOC: ED 15:14
PROVIDERS: Emergency Provider Family Medicine; PCP Family Medicine
DX: F07.81 Postconcussional syndrome (principal); R51.9 Headache, unspecified
CPT/HCPCS: 96365; 96375; 99284; J1200; J1885; J2060; J2765; J7030

== ENCOUNTER 2022-10-01 06:52 | Outpatient (CLI) | payer OTHER, SELFPAY ==
--- NOTE | 2022-10-01 08:21 | W.ANESCHARGE ---
Anesthesia Charges Start Date/Time Anesthesia Start Date: 10/01/22 Anesthesia Start Time: 08:05 Stop Date/Time Anesthesia Stop Date: 10/01/22 Anesthesia Stop Time: 08:25
--- NOTE | 2022-10-03 10:11 | ED.NURSE ---
Pt called, stated that she had a colonoscopy on Tuesday and slept most of the day after. Woke up with a headache. Has had left lower abd pain, nausea and decrease in appetite and chills. Vomited x1. Has not had a BM. Rec pt be seen in ED for post procedure isses.
== END 2022-10-01 06:53 | disposition home or self-care (01) ==
LOC: OP CLINIC 06:52
PROVIDERS: PCP Family Medicine; Visit Provider Internal Medicine
DX: Z85.038 Personal history of other malignant neoplasm of large intestine (principal); Z98.0 Intestinal bypass and anastomosis status
CPT/HCPCS: 45378; 812; J2704

== ENCOUNTER 2022-10-03 10:42 | Emergency (ER) | payer OTHER, SELFPAY ==
[2022-10-03 10:47] VITALS: BP 122/84; PULSE 72; RESP 15; TEMP 35.7; O2SAT 97; BMI 27.1
--- NOTE | 2022-10-03 11:09 | CT_ITS ---
Patient: MATIAS CHOWDHURY Facility:?[facility] Patient ID:?[id number] Site Patient ID:?[id number]. Site :?[id number] Study:?CT-Abdomen/Pelvis W/IV-10/03/2022 12:14:27 PM Ordering Physician:Carlos Short Final Report: INDICATION: RLQ PAIN LOSS OF APPITITE, COLONOSCOPY 2 DAYS AGO Indication: Right lower quadrant pain. Loss of appetite. Colonoscopy 2 days ago. Technique: CT of the abdomen and pelvis. 82 cc of Isovue 370 IV. Coronal/sagittal reconstruction images. Comparison: None. Findings: Lung bases: There is no pleural or pericardial effusion. The heart size is normal. The lung bases demonstrate bibasilar atelectasis. There is no suspicious pulmonary nodule. No basilar pneumothorax. Abdomen/pelvis: The liver morphology is normal. There is no solid hepatic mass. Cholecystectomy. No perihepatic ascites. The spleen size is normal. There is no adrenal mass. There is no solid renal mass, hydronephrosis, or perinephric fluid collection. No striated nephrogram. Pelvic phleboliths are present. There is no pancreatic mass, pancreatic duct dilation, or glandular atrophy. No portal vein thrombosis. SMV and splenic vein are patent. Anastomotic sutures present in the rectum. This may be from a prior anterior resection. Trace amount of free fluid in the pelvis. No adnexal mass. There is no evidence on CT for a small bowel or colonic obstruction. There is no mural thickening. There is no perienteric edema. No transition point. Ileocecal valve appears normal. The appendix is not identified. There are no secondary signs for appendicitis. Nonenlarged inguinal lymph nodes are present. There is no inguinal or pelvic sidewall lymphadenopathy. The retroperitoneum and gastrohepatic ligament are normal. The celiac axis, SMA, and LIU are patent. The bone windows demonstrate no suspicious bone lesions. The vertebral body heights are maintained. Alignment is preserved on sagittal reconstruction images. Impression: 1. No acute findings are seen to explain abdominal pain. 2. Anastomotic sutures present in the rectum. This could be from a prior anterior resection. No inflammatory changes or drainable fluid collection adjacent to the anastomosis. 3. Uniform enhancement of the pancreas on single phase CT. No findings to indicate necrotizing pancreatitis. No findings to indicate acute interstitial edematous pancreatitis. 4. Cholecystectomy. Biliary tree is normal in caliber. 5. There is no abdominal/pelvic lymphadenopathy. Dictated by Spike Jade MD @ 10/03/2022 12:32:45 PM Please note that all CT scans at this facility use dose modulation, iterative reconstruction, and/or weight-based dosing when appropriate to reduce radiation dose to as low as reasonably achievable. Dictated by: Spike Jade MD @ 10/03/2022 12:32:53 Signed by:Robel Jade MD @10/03/2022 12:32:53 PM (Electronic Signature)
--- NOTE | 2022-10-03 11:17 | ED_ITS ---
HPI - General Adult General Time Seen by Provider: 11:17 Date Seen: 10/03/22 Chief complaint: Abdominal Pain Stated complaint: complications after colonoscopy Time Seen by Provider: 10/03/22 11:01 Source: patient Mode of arrival: ambulatory Limitations: no limitations History of Present Illness HPI narrative: Patient is a 41-year-old female with a history of colon cancer treated with chemotherapy, radiations therapy, surgical removal now cancer free for the emergency department for left lower quadrant abdominal pain. She says this pain is been going on since late Tuesday night or early Tuesday morning. She does note she had a colonoscopy Tuesday. She has had several colonoscopies states she feels much different after this when compared to others. She states she was told no polyps were removed during her latest colonoscopy. Patient states she has had nausea also has 1 episode of emesis. She has not been eat drink over the past couple days due to the nausea. Patient has been passing gas she states. Has not had a bowel movement but areas she is not ate anything and had a successful bowel prep prior to the colonoscopy for not having a bowel movement is not unusual at this point. Denies fevers, chills, chest pain, shortness of breath, dysuria, weakness, numbness. Does admit to having some lightheadedness. Also admits to a headache. States she has a headaches like this before. Related Data Home Medications Medication Instructions Recorded Confirmed ibuprofen 400 mg tablet 400 mg PO TID PRN 08/26/21 09/20/22 fluoxetine 10 mg capsule 10 mg PO 08/28/22 09/03/22 Previous Rx's Medication Instructions Recorded hydroxyzine HCl 25 mg tablet 25 mg PO TID PRN anxiety #30 tabs 07/06/22 Crutches- Adult #1 ea 08/28/22 fluoxetine 40 mg capsule (Prozac) 40 mg PO QAM #30 caps 09/07/22 peg 3350-electrolytes 236 240 ml PO Q10M #4,000 mL 09/14/22 gram-22.74 gram-6.74 gram-5.86 gram solution (Golytely) potassium chloride 20 mEq 20 meq PO DAILY #15 tabs 09/18/22 tablet,extended release lorazepam 1 mg tablet (Ativan) See Rx Instructions PO .ud PRN 09/22/22 anxiety #30 tabs ondansetron 4 mg disintegrating 4 mg PO Q8H PRN nausea and 10/03/22 tablet vomiting #14 tabs oxycodone 5 mg capsule 5 mg PO Q6H PRN pain #12 caps 10/03/22 Allergies Allergy/AdvReac Type Severity Reaction Status Date / Time amoxicillin [From Augmentin] Allergy Unknown N/V Verified 09/07/22 16:17 clavulanic acid Allergy Unknown N/V Verified 09/07/22 16:17 [From Augmentin] codeine Allergy Unknown N/V Verified 09/07/22 16:17 lactose Allergy Unknown Verified 09/07/22 16:17 Review of Systems Status of ROS: Reports: 10 or more systems reviewed and unremarkable except as noted in History and below PFSH PFS Medical History Carcinoma in situ of cervix (2003) ?D06.9 - Carcinoma in situ of cervix, unspecified (ICD-10) Adhesive capsulitis ?M75.00 - Adhesive capsulitis of unspecified shoulder (ICD-10) Surgical History Status post cone biopsy of cervix ?Z98.890 - Other specified postprocedural states (ICD-10) Status post colposcopy (08/10/21) ?Z98.890 - Other specified postprocedural states (ICD-10) History of loop electrosurgical excision procedure (LEEP) of cervix (2003) ?Z98.890 - Other specified postprocedural states (ICD-10) History of abdominal supracervical subtotal hysterectomy (2005) ?Z90.711 - Acquired absence of uterus with remaining cervical stump (ICD-10) Status post partial colectomy ?Z90.49 - Acquired absence of other specified parts of digestive tract (ICD- 10) Status post cholecystectomy ?Z90.49 - Acquired absence of other specified parts of digestive tract (ICD- 10) Family History Other Breast cancer Diabetes Rheumatoid arteritis Social History Narrative: Former smoker Quit 2017 In the past 12 months, utilities in danger of being shut off: no In the past 12 mos, have been you worried that your food would run out before you had money to buy more?: never true In the past 12 mos, the food you bought just didn't last and you didn't have money to buy more?: never true Smoking Status: Former smoker Do you use any of these nicotine containing products: None How often do you have a drink containing alcohol: never AUDIT-C Alcohol total score: 0 Non-prescribed substance use: denies use How often does anyone, including family, friends and others, physically hurt you : never How often does anyone, including family, friends and others, insult or talk down to you: never How often does anyone, including family, friends and others, threaten you with harm: never How often does anyone, including family, friends and others, scream or curse at you: never Little interest or pleasure in doing things: more than half the days Feeling down, depressed, or hopeless: nearly every day Exam Narrative: Exam Narrative: Const: Well-nourished, Well-developed, in mild distress Eyes: PERRL, no conjunctival injection, and symmetrical lids ENMT: Atraumatic external nose and ears. Moist mucous membranes. Neck: Symmetric, trachea midline, No thyromegaly. CVS: RRR, No murmurs or gallops. Peripheral pulses 2+ and equal in all extremities RESP: Unlabored respiratory effort. Clear to auscultation bilaterally. GI: Nondistended, tender left lower quadrant. She also notes she felt rebound tenderness left lower quadrant when I pressed on her right upper quadrant. MSK:Extremities w/o deformity, Normal Active ROM Skin: Warm, Dry. No rashes or lesions. Neuro: Normal Muscle tone, No focal neurological deficits. Psych: Awake, Alert, & Oriented x3. Appropriate mood and affect. Const: Vital Signs, click to edit/add: Vital Signs - 24 hr 10/03/22 10:47 10/03/22 12:15 Temperature 96.3 F L Pulse Rate [Pulse Oximeter] 72 67 Respiratory Rate 15 12 Blood Pressure [Ri ght Upper Arm] 122/84 122/79 Pulse Oximetry 97 96 Oxygen Delivery Me thod Room Air Room Air Course Vital Signs Vital signs: Initial Vital Signs Temperature 96.3 F L 10/03/22 10:47 Temperature Source Temporal Artery Scan 10/03/22 10:47 Pulse Rate 72 10/03/22 10:47 Respiratory Rate 15 10/03/22 10:47 Blood Pressure 122/84 10/03/22 10:47 Blood Pressure Mean 96 10/03/22 10:47 Pulse Oximetry 97 10/03/22 10:47 Oxygen Delivery Method Room Air 10/03/22 10:47 Vital Signs Temperature 96.3 F L 10/03/22 10:47 Pulse Rate 72 10/03/22 10:47 Respiratory Rate 15 10/03/22 10:47 Blood Pressure 122/84 10/03/22 10:47 Pulse Oximetry 97 10/03/22 10:47 Oxygen Delivery Method Room Air 10/03/22 10:47 Temperature 96.3 F L 10/03/22 10:47 Pulse Rate 67 10/03/22 12:15 Respiratory Rate 12 10/03/22 12:15 Blood Pressure 122/79 10/03/22 12:15 Pulse Oximetry 96 10/03/22 12:15 Oxygen Delivery Method Room Air 10/03/22 12:15 Medical Decision Making [facility] Narrative Medical decision making narrative: Patient is a 41-year-old female history of colon cancer who was no cancer free presenting was were for left lower quadrant pain after recent colonoscopy. She is of sober colonoscopy since she states she has not had pain like this after previous ones. She has also suffered for nausea. She does not have any nausea medication at home. Patient is passing gas. She was informed no polyps had to be removed during her colonoscopy. Considering her symptoms is unlikely to be a bowel obstruction. Her pain is mild so a perforation secondary to the colonoscopy is unlikely but cannot be ruled out at this time. Diverticulitis is also unlikely considering she just had a colonoscopy but could have possibly been missed. CBC, CMP, urinalysis, lipase, CT of the abdomen with IV contrast were all ordered. I also ordered Toradol for pain and Zofran for nausea. CT scan of the abdomen was done it showed some abdominal lymphadenopathy otherwise was unremarkable. S the patient has lab work showed no concerning abnormalities. I am not sure why she is having the symptoms at this time. Could be secondary to a viral colitis with a was no clear signs of infection, perforation. Patient's symptoms improved with the morphine but not Toradol. Consider the web patient discharged home informed of close follow-up with the specialist that did her colonoscopy. She is agreeable to this plan. We discharged home Zofran and some oxycodone for pain control. She is agreeable to this plan Lab Data Labs: Lab Results 10/03/22 10/03/22 Range/Units 11:28 11:29 WBC 4.33 L (4.50-11.00) K/uL RBC 4.18 (4.00-5.20) m/uL Hgb 12.6 (12.0-16.0) gm/dL Hct 36.6 (33.0-51.0) % MCV 88 (80-100) fL MCH 30 (26-34) pg MCHC 34 (32-36) gm/dL RDW Coeff of Makenna 12.6 (11.5-15.5) % Plt Count 227 (140-440) K/uL Neut % (Auto) 67.0 (42.0-72.0) % Lymph % (Auto) 25.6 (20-44) % Blaine % (Auto) 5.3 (0.0-11.0) % Eos % (Auto) 1.2 (0.0-7.0) % Baso % (Auto) 0.9 (0.0-3.0) % Neut # (Auto) 2.90 (1.7-7.0) K/uL Lymph # (Auto) 1.10 (0.90-2.90) K/uL Blaine # (Auto) 0.20 (0.00-0.90) K/UL Eos # (Auto) 0.10 (0.00-0.50) K/uL Baso # (Auto) 0.00 (0.00-0.30) K/uL Abs Immat Gran (auto) 0.00 (0.00-0.30) K/uL Imm/Tot Granulo (auto) 0.0 % Sodium 136 (135-149) mmol/L Potassium 3.7 (3.6-5.1) mmol/L Chloride 105 (96-114) mmol/L Carbon Dioxide 24 (20-32) mmol/L BUN 9 (5-24) mg/dL Creatinine 0.8 (0.5-1.5) mg/dL Estimated Creat Clear 88.38 Estimated GFR 96 ml/min Glucose 104 (60-115) mg/dL Calcium 8.8 (8.4-10.6) mg/dL Total Bilirubin 1.3 (0.1-1.5) mg/dL AST 24 (12-35) U/L ALT 28 (4-35) U/L Alkaline Phosphatase 66 (40-150) U/L Total Protein 7.3 (6.0-8.3) g/dL Albumin 4.4 (3.3-5.0) g/dL Lipase 90 (23-300) U/L Urine Color Yellow (Yellow) Urine Appearance Clear (Clear) Urine pH 7.0 (5.0-8.5) Ur Specific [place] 1.015 (1.000-1.030) Urine Protein Negative (Negative) Urine Glucose (UA) Negative (Negative) Urine Ketones Negative (Negative) Urine Blood Negative (Negative) Urine Nitrite Negative (Negative) Urine Bilirubin Negative (Negative) Urine Urobilinogen 0.2 (0.2-1.0) Ur Leukocyte Esterase 1+ A (Negative) Urine RBC 0-2 (0-2) Urine WBC 2-5 (0-5) Ur Squamous Epith Cells Few (None-Few) Urine Bacteria Few A (None) Urine HCG, Qual Negative (Negative) Discharge Plan Discharge Clinical Impression: Abdominal pain Qualifiers: Abdominal location: left lower quadrant Qualified Code(s): R10.32 - Left lower quadrant pain Patient Disposition: Home, Self-Care Condition: Stable Instructions: Abdominal Pain (ED) Additional Instructions: Follow-up with the provider that did colonoscopy. I am unsure what is causing your abdominal pain at this time. CT scan showed no clear signs of infection or perforation. I did prescribe you nausea medication and pain medication. Return for new or worsening symptoms. Prescriptions: New ondansetron 4 mg tablet,disintegrating 4 mg PO Q8H PRN (Reason: nausea and vomiting) Qty: 14 0RF oxycodone 5 mg capsule 5 mg PO Q6H PRN (Reason: pain) Qty: 12 0RF No Action fluoxetine [Prozac] 40 mg capsule 40 mg PO QAM Qty: 30 0RF fluoxetine 10 mg capsule 10 mg PO (DME) Crutches- Adult Misc See Rx Instructions .ROUTE .MEDSUPPLY Qty: 1 0RF Rx Instructions: As directed potassium chloride 20 mEq tablet extended release 20 meq PO DAILY Qty: 15 0RF ibuprofen 400 mg tablet 400 mg PO TID PRN hydroxyzine HCl 25 mg tablet 25 mg PO TID PRN (Reason: anxiety) Qty: 30 5RF peg 3350-electrolytes [Golytely] 236-22.74-6.74 -5.86 gram recon soln 240 ml PO Q10M Qty: 4000 0RF Rx Instructions: until fecal effluent is clear lorazepam [Ativan] 1 mg tablet See Rx Instructions PO .ud PRN (Reason: anxiety) Qty: 30 0RF Rx Instructions: 1/2 tablet morning and midday, and 1 tablet at bedtime, prn. Must last 2 weeks orally Follow Up/Referrals: Ibrahima Sanches MD [Primary Care Provider] - Stand Alone Forms: [employer] Info Instructions
[2022-10-03] MEDS: ONDANSETRON 2 MG/ML inj 4 MG IVP (11:27)
[2022-10-03] MEDS: KETOROLAC 15 MG/ML inj IVP (11:30)
[2022-10-03 11:38] LABS: Appearance Urine Clear (Clear); Bilirubin Urine Negative (Negative); Blood Urine Negative (Negative); Color Urine Yellow (Yellow); Glucose Urine Negative (Negative); Ketones Urine Negative (Negative); Leukocyte Esterase Urine 1+ (Negative); Nitrite Urine Negative (Negative); Protein Urine Negative (Negative); Specific Gravity Urine 1.015 (1.000-1.030); Urobilinogen Urine 0.2 (0.2-1.0)
[2022-10-03 11:39] LABS: Basophils Percent Auto 0.9 % (0.0-3.0); Eosinophils Percent Auto 1.2 % (0.0-7.0); Hematocrit 36.6 % (33.0-51.0); Hemoglobin* 12.6 gm/dL (12.0-16.0); Lymphocytes Percent Auto 25.6 % (20-44); Mean Corpuscular HGB Conc 34 gm/dL (32-36); Mean Corpuscular Hemoglobin 30 pg (26-34); Mean Corpuscular Volume 88 fL (80-100); Monocytes Percent Auto 5.3 % (0.0-11.0); Platelet Count* 227 K/uL (140-440); RDW Coefficient of Variation % 12.6 % (11.5-15.5); Red Blood Count 4.18 m/uL (4.00-5.20); White Blood Count* 4.33 K/uL (4.50-11.00)
[2022-10-03 11:41] LABS: Slide Review Reflex No
[2022-10-03 11:45] LABS: Ur HCG Qualitative* Negative (Negative)
[2022-10-03 11:52] LABS: Chloride* 105 mmol/L (96-114)
[2022-10-03 11:53] LABS: Bacteria Urine Few; RBC Urine 0-2 (0-2); Squamous Epithelial Cell Urine Few (None-Few)
[2022-10-03 11:53] LABS: Albumin* 4.4 g/dL (3.3-5.0); Potassium* 3.7 mmol/L (3.6-5.1); Sodium* 136 mmol/L (135-149)
[2022-10-03 11:56] LABS: Alanine Aminotransferase* 28 U/L (4-35); Alkaline Phosphatase* 66 U/L (40-150); Aspartate Amino Transferase* 24 U/L (12-35); Bilirubin Total* 1.3 mg/dL (0.1-1.5); Blood Urea Nitrogen* 9 mg/dL (5-24); Calcium* 8.8 mg/dL (8.4-10.6); Carbon Dioxide* 24 mmol/L (20-32); Creatinine* 0.8 mg/dL (0.5-1.5); Est. Creatinine Clearance* 88.38; Estimated Glomerular Filt Rate 96 ml/min; Glucose* 104 mg/dL (60-115); Lipase* 90 U/L (23-300); Total Protein* 7.3 g/dL (6.0-8.3)
[2022-10-03] MEDS: MORPHINE 4 MG/ML INJ IVP (12:13)
[2022-10-03 12:15] VITALS: BP 122/79; PULSE 67; RESP 12; O2SAT 96
--- NOTE | 2022-10-03 12:20 | ED.NURSE ---
Pt back from imaging via cart. Reports pain continues. Morphine given IVP, as ordered. Warm blanket provided for comfort. Denies further needs. Call light within reach.
== END 2022-10-03 14:49 | disposition home or self-care (01) ==
PROVIDERS: Emergency Provider Student in an Organized Health Care Education/Training Program; PCP Family Medicine
DX: R10.9 Unspecified abdominal pain (principal)
CPT/HCPCS: 36415; 74177; 80053; 81001; 81025; 83690; 85025; 87086; 87186; 96374; 96375; 99283; 99284; 99285; J1885; J2270; J2405; Q9967

== ENCOUNTER 2022-10-29 08:00 | Outpatient (CLI) | payer OTHER, SELFPAY | END 2022-10-29 08:01 | disposition home or self-care (01) | LOC: AMB 11-01 10:20 | PROVIDERS: PCP Family Medicine; Visit Provider Family Medicine | DX: S09.90XA Unspecified injury of head, initial encounter (principal); W01.0XXA Fall on same level from slipping, tripping and stumbling without subsequent striking against object, initial encounter; Y92.008 Other place in unspecified non-institutional (private) residence as the place of occurrence of the external cause | CPT/HCPCS: A0425; A0427 ==

== ENCOUNTER 2022-10-29 08:24 | Emergency (ER) | payer OTHER, SELFPAY ==
[2022-10-29 08:27] VITALS: BP 134/89; PULSE 103; RESP 16; TEMP 36.2; O2SAT 96; BMI 25.1
--- NOTE | 2022-10-29 08:42 | ED.GENADULT ---
HPI - General Adult General Chief complaint: Laceration/Wound Stated complaint: head lac Time Seen by Provider: 10/29/22 08:42 History of Present Illness HPI narrative: Patient here yesterday, sutured scalp after a fall tripping on a dog gait. Today . became dizzy and light headed, hit head on a piece of sheet metal . Dressing applied before EMS got there. IV started in left AC and 25 mcg fentanyl given. 42-year-old woman presenting to the emergency department via EMS after sustaining a laceration to her right scalp/forehead. She describes tripping over a dog gate that her has secured with sheet metal of some sort. She says that she has requested this to be changed but he just will not do it. She says that this actually occurred yesterday as well. Apparently this prompted visit to area emergency department as she does have suturing of the wound at the right forehead again. Beyond this does not offer much explanation for these occurrences. When queried later she is adamant that this was not a self-harm action. No other injuries sustained. No neck or back pain. No visual disturbance. Intermittently however complaining of significant pain at the right forehead laceration site and related headache. No complaint of nausea. Related Data Home Medications Medication Instructions Recorded Confirmed ibuprofen 400 mg tablet 400 mg PO TID PRN 08/26/21 11/10/22 fluoxetine 10 mg capsule 10 mg PO 08/28/22 11/10/22 Previous Rx's Medication Instructions Recorded hydroxyzine HCl 25 mg tablet 25 mg PO TID PRN anxiety #30 tabs 07/06/22 Crutches- Adult #1 ea 08/28/22 fluoxetine 40 mg capsule (Prozac) 40 mg PO QAM #30 caps 09/07/22 potassium chloride 20 mEq 20 meq PO DAILY #15 tabs 09/18/22 tablet,extended release ondansetron 4 mg disintegrating 4 mg PO Q8H PRN nausea and 10/03/22 tablet vomiting #14 tabs lorazepam 0.5 mg tablet See Rx Instructions PO .ud PRN 11/09/22 anxiety #64 tabs Allergies Allergy/AdvReac Type Severity Reaction Status Date / Time amoxicillin [From Augmentin] Allergy Unknown N/V Verified 09/07/22 16:17 clavulanic acid Allergy Unknown N/V Verified 09/07/22 16:17 [From Augmentin] codeine Allergy Unknown N/V Verified 09/07/22 16:17 lactose Allergy Unknown Verified 09/07/22 16:17 Review of Systems Status of ROS: Reports: 6 or more systems reviewed and unremarkable except as noted in History and [facility] Carcinoma in situ of cervix (2003) ?D06.9 - Carcinoma in situ of cervix, unspecified (ICD-10) Adhesive capsulitis ?M75.00 - Adhesive capsulitis of unspecified shoulder (ICD-10) Surgical History Status post cone biopsy of cervix ?Z98.890 - Other specified postprocedural states (ICD-10) Status post colposcopy (08/10/21) ?Z98.890 - Other specified postprocedural states (ICD-10) History of loop electrosurgical excision procedure (LEEP) of cervix (2003) ?Z98.890 - Other specified postprocedural states (ICD-10) History of abdominal supracervical subtotal hysterectomy (2005) ?Z90.711 - Acquired absence of uterus with remaining cervical stump (ICD-10) Status post partial colectomy ?Z90.49 - Acquired absence of other specified parts of digestive tract (ICD-10) Status post cholecystectomy ?Z90.49 - Acquired absence of other specified parts of digestive tract (ICD-10) Family History Other Breast cancer Diabetes Rheumatoid arteritis Social History Narrative: Former smoker Quit 2017 In the past 12 months, utilities in danger of being shut off: no In past 12 months, lack of transportation kept you from medical appts, meetings, work, or getting things needed for daily living: no In the past 12 mos, have been you worried that your food would run out before you had money to buy more?: never true In the past 12 mos, the food you bought just didn't last and you didn't have money to buy more?: never true Smoking Status: Former smoker Do you use any of these nicotine containing products: None How often do you have a drink containing alcohol: never AUDIT-C Alcohol total score: 0 Non-prescribed substance use: denies use How often does anyone, including family, friends and others, physically hurt you: never How often does anyone, including family, friends and others, insult or talk down to you: never How often does anyone, including family, friends and others, threaten you with harm: never How often does anyone, including family, friends and others, scream or curse at you: never Little interest or pleasure in doing things: more than half the days Feeling down, depressed, or hopeless: nearly every day Exam Narrative: Exam Narrative: Generally pleasant. Flat affect. Cranial nerves 2-12 intact. Extraocular movements are full. Neck is supple nontender back nontender. Well-approximated sutured laceration of the right forehead. Above that and just inside the hairline is another 5 cm linear laceration diagonal. Clean other than dried blood. Full dermal centrally only No other abrasions in the area. No defect appreciable to palpation of the bony head/skull. Const: Vital Signs, click to edit/add: Vital Signs - 24 hr 10/29/22 08:27 Temperature 97.1 F L Pulse Rate [Right Pulse Oximeter] 103 H Respiratory Rate 16 Blood Pressure [Ri ght Upper Arm] 134/89 Pulse Oximetry 96 Oxygen Delivery Me thod Room Air Documenting provider has reviewed patient's vital signs: yes Course Vital Signs Vital signs: Initial Vital Signs Temperature 97.1 F L 10/29/22 08:27 Temperature Source Temporal Artery Scan 10/29/22 08:27 Pulse Rate 103 H 10/29/22 08:27 Respiratory Rate 16 10/29/22 08:27 Blood Pressure 134/89 10/29/22 08:27 Blood Pressure Mean 104 10/29/22 08:27 Blood Pressure Position Sitting 10/29/22 08:27 Pulse Oximetry 96 10/29/22 08:27 Oxygen Delivery Method Room Air 10/29/22 08:27 Vital Signs Temperature 97.1 F L 10/29/22 08:27 Pulse Rate 103 H 10/29/22 08:27 Respiratory Rate 16 10/29/22 08:27 Blood Pressure 134/89 10/29/22 08:27 Pulse Oximetry 96 10/29/22 08:27 Oxygen Delivery Method Room Air 10/29/22 08:27 Temperature 97.1 F L 10/29/22 08:27 Pulse Rate 88 10/29/22 13:08 Respiratory Rate 20 10/29/22 13:08 Blood Pressure 125/99 H 10/29/22 13:08 Pulse Oximetry 99 10/29/22 13:08 Oxygen Delivery Method Room Air 10/29/22 13:08 Medical Decision Making MDM Narrative Medical decision making narrative: I think claimed mechanism is inconsistent with the injury. That kind of encounter I would expect more lacerations abrasions or even scalping. She is complaining of pain. Did offer injection of ketorolac which she declined. To treat presumed headache was given IV normal saline and after discussion pain dose ketamine. She expresses an interest in the ketamine as it relates I think to mental health treatment seemed to help with her pain though did request other medication. Discussed suturing versus stapling of this wound. After cleaning, her preference was for paola; seemed curious or excited about the option. I did place paola without difficulty. No anesthesia was used. Well approximated and control of bleeding. Did receive permission to talk with her this time, contrary to prior visit here. He denies that there is a dog gate with loose sheet metal. Nor that there was any notable encounter similar to this. 19-year-old daughter who also lives at home did locate what looked to be a freshly used razor blade in the trash. Cecily apparently abruptly appeared with blood coming down her forehead while he was working in the shop. He and daughter offered to take her to the emergency department and then she was abruptly in the car. Changed her mind in route and asked to go to the police where EMS collected her. Family remains concerned about odd behavior and separation from family in medical and mental health cares. They would really just like to have her back with her normal self. Cecily claims a therapy relationship with Spike easley at [facility] [employer]. Phone number [phone]. I did attempt to reach him but unable to connect during the time of Cecily's visit in the emergency department. Evidently has been sometime since he has seen her in the office. I did requested DEC mental health assessment here during this visit. Thankfully Cecily was willing to have this conversation. I think this is more likely self-harm behavior of unclear motivation. She denies self-harm behavior or frankly suicidal ideation or intent. Continues with unusually flat or blunted affect. Would refer reader to DEC assessment. Discharged ultimately to the care of her . Discharge Plan Discharge Clinical Impression: Laceration of scalp Patient Disposition: Home w/ Parent or Adult Condition: Improved Additional Instructions: Please make an appointment with Dr. Sotelo locally in a week to remove the paola. I suppose you could remove the sutures at that time as well. Okay to get this area wet but try not to soak it over that time after cleaning up today. See the safety plan as prepared by Archana. If you're feeling unsafe please return to the emergency department. Please involve your family in your care. I am sure they would be happy to help you get to healthcare appointments. You have 1:00 p.m. appointment this coming Tuesday with [facility] for therapy. Please make that. Nice to see you. Prescriptions: No Action fluoxetine [Prozac] 40 mg capsule 40 mg PO QAM Qty: 30 0RF fluoxetine 10 mg capsule 10 mg PO (DME) Crutches- Adult Misc See Rx Instructions .ROUTE .MEDSUPPLY Qty: 1 0RF Rx Instructions: As directed potassium chloride 20 mEq tablet extended release 20 meq PO DAILY Qty: 15 0RF ondansetron 4 mg tablet,disintegrating 4 mg PO Q8H PRN (Reason: nausea and vomiting) Qty: 14 0RF ibuprofen 400 mg tablet 400 mg PO TID PRN hydroxyzine HCl 25 mg tablet 25 mg PO TID PRN (Reason: anxiety) Qty: 30 5RF lorazepam 0.5 mg tablet See Rx Instructions PO .ud PRN (Reason: anxiety) Qty: 64 0RF Rx Instructions: 0.5 mg QAM and QMidday, and 1 mg QHS orally UD PRN; Follow Up/Referrals: Ibrahima Sanches MD [Primary Care Provider] - Stand Alone Forms: [employer] Info Instructions
[2022-10-29 09:24] VITALS: BP 108/82; BP 119/90; BP 120/84; PULSE 107; PULSE 120; PULSE 84
[2022-10-29] MEDS: 0.9 % SODIUM CHLORIDE 1000 ml 1,000 ML IV (09:27)
[2022-10-29] MEDS: KETAMINE HCL 20 MG in 0.9 % SODIUM CHLORIDE 100 ml 100 ML 300.6 MG IVPB (09:47)
--- NOTE | 2022-10-29 10:16 | ED.NURSE ---
Patient's called today requiring information on patient. I notified him that I could not share any health information with him at this time given I did not have any permission from her. He proceeded to tell me she was seen at [place] last night for a laceration repair as well. He thought the situation was odd that she now has a laceration today. He stated that there is a razor blade now missing from her mom's dresser. He is on the way into the ER now to see her. Stated he could ask her if he could come back to see her, and we could share information with him at that point if she was agreeable. Updated the physician and charge nurse with this information.
--- NOTE | 2022-10-29 10:32 | ED.NURSE ---
Patient's here, patient declined to have him come back.
--- NOTE | 2022-10-29 10:37 | ED.NURSE ---
Received verbal permission from patient to speak to her waiting in the lobby.
--- NOTE | 2022-10-29 10:47 | ED.NURSE ---
Per , wondering about chemical dependency resources or placing her on a hold due to safety concerns. Updated provider.
--- NOTE | 2022-10-29 12:45 | ED.NURSE ---
After pt's DEC assessment she was frustrated that the healthcare personnel were thinking that she is a self sheri. She was adamant about not being a self sheri.
[2022-10-29 13:08] VITALS: BP 125/99; PULSE 88; RESP 20; O2SAT 99
== END 2022-10-29 13:12 | disposition home or self-care (01) ==
PROVIDERS: Emergency Provider Family Medicine; PCP Family Medicine
DX: S01.01XA Laceration without foreign body of scalp, initial encounter (principal); Y29.XXXA Contact with blunt object, undetermined intent, initial encounter
CPT/HCPCS: 12002; 96365; 96375; 99284; J3490; J7030

== ENCOUNTER 2022-11-23 13:12 | Emergency (ER) | payer OTHER, SELFPAY ==
[2022-11-23] VITALS (11 sets, daily range): BP systolic 112–158; BP diastolic 83–99; PULSE 91–113; RESP 16–18; TEMP 35.9–36.1; O2SAT 84–100
--- NOTE | 2022-11-23 14:45 | CRLHL7_ITS ---
For Patients: As a result of the Century Cures Act, medical imaging exams and procedure reports are released immediately into your electronic medical record. You may view this report before your referring provider. If you have questions, please contact your health care provider. Indication: Dropped object on foot. Technique: Left foot, 3 views. Comparison: None. Findings/Impression: Bones: Alignment is normal. No displaced fractures or bone lesions. Joint spaces: Unremarkable. Soft tissues: Unremarkable. Dictated by Suman Abdullahi MD @ 11/23/2022 5:09:53 PM (Electronically Signed)
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
[2022-11-23] MEDS: KETOROLAC 30 MG/ML inj 60 MG IM (16:42)
--- NOTE | 2022-11-23 16:55 | ED.NURSE ---
Gave pt IM injection in the left vastus laterales, had female [facility] quality assurance specialist.
== END 2022-11-23 17:44 | disposition home or self-care (01) ==
LOC: ED 17:22
PROVIDERS: Emergency Provider Family Medicine; PCP Family Medicine
DX: S90.32XA Contusion of left foot, initial encounter (principal)
CPT/HCPCS: 73630; 96372; 99284; J1885

== ENCOUNTER 2022-12-03 10:05 | Outpatient (CLI) | payer OTHER, SELFPAY ==
--- NOTE | 2022-12-03 10:15 | CRLHL7_ITS ---
For Patients: As a result of the Century Cures Act, medical imaging exams and procedure reports are released immediately into your electronic medical record. You may view this report before your referring provider. If you have questions, please contact your health care provider. BILATERAL SCREENING MAMMOGRAM WITH COMPUTER-AIDED DETECTION AND TOMOSYNTHESIS TECHNIQUE: CC and MLO views were obtained. These mammographic images have been obtained using full-field digital technique. These mammographic images were interpreted with the benefit of computer-aided detection. Breast Tomosynthesis was used in this interpretation. COMPARISON FILM: 08/24/21. FINDINGS: There are scattered areas of fibroglandular density IMPRESSION: There is no radiographic evidence for malignancy. ASSESSMENT: BI-RADS Category 1: Negative RECOMMENDATION: Routine screening mammogram in 1 year. A lay language report of this examination will be provided to the patient. Rafi Lee M.D. Diagnostic Radiologist [email or web address] MEREDITH/Dictated by: Rafi Lee MD @ 12/03/2022 12:04:00 PM (Electronically Signed)
== END 2022-12-03 10:06 | disposition home or self-care (01) ==
PROVIDERS: PCP Family Medicine; Visit Provider Family Medicine
DX: Z12.31 Encounter for screening mammogram for malignant neoplasm of breast (principal)
CPT/HCPCS: 77063; 77067

== ENCOUNTER 2022-12-31 11:29 | Emergency (ER) | payer OTHER, SELFPAY ==
[2022-12-31 11:32] VITALS: BP 118/85; PULSE 110; RESP 18; TEMP 36.7; O2SAT 98; BMI 27.3
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
[2022-12-31] MEDS: CYCLOBENZAPRINE HCL 10 MG TABLET PO (11:58)
--- NOTE | 2022-12-31 12:05 | PC.NURSE ---
pt given ice pack to back of neck.
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
--- NOTE | 2022-12-31 12:33 | PC.NURSE ---
to radiology via wheelchair
== END 2022-12-31 14:16 | disposition home or self-care (01) ==
PROVIDERS: Emergency Provider Student in an Organized Health Care Education/Training Program; PCP Family Medicine
DX: S13.4XXA Sprain of ligaments of cervical spine, initial encounter (principal); V43.52XA Car driver injured in collision with other type car in traffic accident, initial encounter
CPT/HCPCS: 71250; 72125; 99283; A9270

== ENCOUNTER 2023-01-25 09:38 | Outpatient (CLI) | payer OTHER, SELFPAY | END 2023-01-25 09:39 | disposition home or self-care (01) | LOC: AMB 01-26 12:08 | PROVIDERS: PCP Family Medicine; Visit Provider Family Medicine | DX: S29.9XXA Unspecified injury of thorax, initial encounter (principal); S19.9XXA Unspecified injury of neck, initial encounter; V49.40XA Driver injured in collision with unspecified motor vehicles in traffic accident, initial encounter; Y92.410 Unspecified street and highway as the place of occurrence of the external cause | CPT/HCPCS: A0425; A0427 ==

== ENCOUNTER 2023-01-25 10:01 | Emergency (ER) | payer OTHER, SELFPAY ==
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
--- NOTE | 2023-01-25 10:08 | CRLHL7_ITS ---
For Patients: As a result of the Century Cures Act, medical imaging exams and procedure reports are released immediately into your electronic medical record. You may view this report before your referring provider. If you have questions, please contact your health care provider. Indication: Injury Technique: CT examination of the thoracic spine was performed. Imaging was acquired in the axial plane. Contrast was not administered. Sagittal and coronal reformatted imaging was performed. Please note that all CT scans at this facility use dose modulation, iterative reconstruction, and/or weight-based dosing when appropriate to reduce radiation dose to as low as reasonably achievable. Comparison: None specific to this area Findings: Alignment is normal. There are mild degenerative changes. There is no acute fracture, dislocation or destructive process noted involving the spine. Impression: Mild degenerative changes. No acute fracture, dislocation or destructive process noted involving the thoracic spine. Please note that all CT scans at this facility use dose modulation, iterative reconstruction, and/or weight-based dosing when appropriate to reduce radiation dose to as low as reasonably achievable. Dictated by Siva Lopez MD @ 01/25/2023 10:48:18 AM (Electronically Signed)
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
[2023-01-25 10:16] VITALS: BP 108/53; PULSE 109; RESP 18; TEMP 36.7; O2SAT 98; BMI 27.3
[2023-01-25 10:30] LABS: Basophils Percent Auto 0.2 % (0.0-3.0); Eosinophils Percent Auto 1.8 % (0.0-7.0); Hematocrit 39.5 % (33.0-51.0); Hemoglobin* 13.2 gm/dL (12.0-16.0); Immature Granulocytes Pct Auto 0.2 %; Lymphocytes Percent Auto 23.2 % (20-44); Mean Corpuscular HGB Conc 33 gm/dL (32-36); Mean Corpuscular Hemoglobin 30 pg (26-34); Mean Corpuscular Volume 91 fL (80-100); Monocytes Percent Auto 3.4 % (0.0-11.0); Neutrophils Percent Auto 71.2 % (42.0-72.0); Platelet Count* 217 K/uL (140-440); Red Blood Count 4.34 m/uL (4.00-5.20); White Blood Count* 4.44 K/uL (4.50-11.00)
[2023-01-25 10:35] VITALS: BP 107/74; PULSE 105; O2SAT 98
[2023-01-25 10:36] VITALS: PULSE 105; O2SAT 99
[2023-01-25 10:36] LABS: Slide Review Reflex No
[2023-01-25 10:37] LABS: Chloride* 107 mmol/L (96-114); Sodium* 141 mmol/L (135-149)
[2023-01-25 10:38] LABS: Potassium* 4.4 mmol/L (3.6-5.1)
[2023-01-25 10:40] LABS: Anion Gap 11 mEq/L (7-15); Carbon Dioxide* 23 mmol/L (20-32); Creatinine* 0.8 mg/dL (0.5-1.5); Est. Creatinine Clearance* 87.51; Estimated Glomerular Filt Rate 95 ml/min
[2023-01-25 10:41] VITALS: BP 98/72; PULSE 103; O2SAT 99
[2023-01-25 10:41] LABS: Blood Urea Nitrogen* 13 mg/dL (5-24); Calcium* 9.2 mg/dL (8.4-10.6); Glucose* 114 mg/dL (60-115)
[2023-01-25 10:47] VITALS: PULSE 96; O2SAT 97
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
[2023-01-25 11:03] VITALS: BP 114/83
[2023-01-25] MEDS: TRAMADOL HCL 50 MG TABLET 100 MG PO (11:03)
[2023-01-25 11:29] LABS: HCG Qualitative Serum* Positive (Negative)
[2023-01-25 11:59] LABS: HCG Quantitative* 6.17 mIU/mL
--- NOTE | 2023-01-25 12:25 | ED.NURSE ---
pt called with lab results. will follow up with PMD
== END 2023-01-25 11:00 | disposition home or self-care (01) ==
PROVIDERS: Emergency Provider Family Medicine; PCP Family Medicine
DX: M54.9 Dorsalgia, unspecified (principal); V43.52XA Car driver injured in collision with other type car in traffic accident, initial encounter
CPT/HCPCS: 36415; 70450; 72125; 72128; 80048; 81001; 81025; 84702; 84703; 85025; 99283; 99285; 99291; A9270; G0390

== ENCOUNTER 2023-08-20 13:55 | Emergency (ER) | payer OTHER, SELFPAY ==
[2023-08-20 14:03] VITALS: BP 144/74; PULSE 104; RESP 18; TEMP 36; O2SAT 99; BMI 28.2
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
--- OUTSIDE RECORDS SUMMARY | 2023-08-20 14:36 | XMS_ITS | Encounter Summary ---
Author Organization [facility] Address [address] [place] [address] Care Team Providers Care Assisted Living Home Director Name Role Phone Elsewhere, Pcp Primary Care Provider Unavailabl e Encounter Details Date Type Department Care Team (Late st Contact Info) Description 08/06/2023 9:55 AM CDT Ancillary Procedure Department of Emergency Medicine Social History Tobacco Use Types Packs/Day Years [...] on file documented as of this encounter Plan of Treatment Not on file documented as of this encounter Procedures Procedure Name Priority Date/Time Associated Diagnosis Comments EMERGENCY DEPARTMENT IMAGE EXAM Routine 08/06/2023 9:55 AM CDT documented in this encounter Results * Arm-Emergency Department Image Exam (08/06/2023 9:55 AM CDT) 08/06/2023 9:54 AM CDT Narrative [facility] - 08/06/2023 9:56 AM CDT This order has been created and auto-finalized to support the import of images acquired without order. The clinical documentation to support these images can be found on the encounter that produced images. Provider Not In System IMG NON RAD IMAGI NG PROCEDURES [facility] NA documented in this encounter Visit Diagnoses Not on filedocumented in this encounter Care Teams Assisted Living Home Director Relationship Specialty Start Date End Date Elsewhere, Pcp PCP - General Internal Medicine 07/25/23 documented as of this encounter
--- OUTSIDE RECORDS SUMMARY | 2023-08-20 14:36 | XMS_ITS ---
Author Organization [facility] Address [address] [place] [address] Care Team Providers Care Pacs Administrator Name Role Phone Unavailable Unavailable Unavailable Surgery Details Not on file Complications Check Surgery Details section. Procedure Estimated Blood Loss Check Surgery Details section. Procedure Findings Check Surgery Details section. Procedure Specimens Taken Check Surgery Details section.
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
--- OUTSIDE RECORDS SUMMARY | 2023-08-20 14:36 | XMS_ITS | Encounter Summary ---
Author Organization [facility] Address [address] [place] [address] Care Team Providers Care Business Process Expert Name Role Phone Elsewhere, Pcp Primary Care Provider Unavailabl e Reason for Visit * Reason Comments Dental Pain Patient presents wit h concern for a tooth infection. Patient states that her (R) lower molar lost it's crown 2 weeks ago. She developed throbbing in the area and swelling around 07/22/23. Patient states that the pain is not manageable. Encounter Details Date Type Department Care Team (Late st Contact Info) Description 07/25/2023 7:13 PM CDT - 07/25/2023 10:54 PM CDT Emergency [facility] [address] [place] [phone] Deborah Cross M.D., M.B.A. [address] [place] [phone] Michael Arechiga M.D. [address] [place] [address] Complication Mechanical Dental Implant Initial (Primary Dx); [facility] Discharge Disposition: Home or Self Care Social [...] Sign Reading Time Taken Comments Blood Pressure 131/103 07/25/2023 10:30 PM CDT Pulse 90 07/25/2023 10:30 PM CDT Temperature 36.9 ??C (98.4 ??F) 07/25/2023 10:30 PM C DT Respiratory Rate 16 07/25/2023 9:46 PM CDT Oxygen Saturation 97% 07/25/2023 10:30 PM CDT Inhaled Oxygen Concentration - - Weight 80.5 kg (177 lb 8 oz) 07/25/2023 5:50 PM CDT Height 167.6 cm (5' 6) 07/25/2023 5:50 PM CDT Body Mass Index 28.65 07/25/2023 5:50 PM CDT documented in this encounter Discharge Instructions * Discharge Instructions* Michael Arechiga M.D. - 07/25/2023 10:42 PM CDT Follow-up with your dentist as soon as possible for definitive care. Try to avoid chewing on the repaired side to avoid disrupting the temporary filling. If it falls out, so be it. It is not meant tolast more than a few weeks at most. Start the penicillin antibiotic. Oxycodone as needed for pain. Would also take ibuprofen and Tylenol around the clock and just add the oxycodone for unbearable pain. documented in this encounter Medications at Time of Discharge Medication Sig Dispensed Refills Start Date End Date FLUoxetine (PROzac) 40 mg capsule Take 40 [...] needed for painful urination. 10 tablet 05/30/2023 penicillin V potassium (VEETIDS) 500 mg tablet Take 1 tablet (500 mg total) by mouth 4 (four) times a day for 10 days. 40 tablet 07/25/2023 08/04/2023 documented as of this encounter ED Notes * Ledy Garcia R.N. - 07/25/2023 10:54 PM CDT Patient was seen by Dr. Arechiga on 07/25/23 for dental pain. She called today stating she was told by Dr. Arechiga if she needed more pain medication she could just call the ED for a refill. RN advised this is usually not the practice but would relay the message. Advised a provider would call her back. 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 Electronically signed by: Ledy Garcia R.N. 07/27/23 4:12 PM CDT Ledy Garcia R.N. 07/27/23 1613 * Michael Arechiga M.D. - 07/25/2023 8:38 PM CDTAssociated Order(s): Dental Procedure Post-Procedure Diagnose(s): [facility]; Complication Mechanical Dental Implant Initial [facility] Department of Emergency Medicine- [place] 07/26/2023 2:37 AM CDT *Encounter labs and radiology results at the end of this note* Chief Complaint Patient presents with Dental Pain Patient presents with concern for a tooth infection. Patient states that her (R) lower molar lost it's crown 2 weeks ago. She developed throbbing in the area and swelling around 07/22/23. Patient states that the pain is not manageable. PCP: ELSEWHERE, PCP HPI: Cecily Phillips is a 42 y.o. woman with a history of multiple psychiatric diagnoses, poor dentition but no specific diagnoses, presenting with about two weeks of worsening dental pain in tooth 30., the right mandibular 1st molar. This tooth did have a crown which fell off about two weeks ago. It was doing fine until about three or four days ago when she noticed some progressively worsening throbbing sensation and swelling that is more subjective than objective attempting to manage pain with ibuprofen and Tylenol. No discharge or drainage. No fevers or chills. She notes that she does not currently have dental insurance but that it ???kicks in?? on July 29.She has not currently scheduled as the dentist she called does not schedule if you do not have active insurance but will call 1st thing on the . A complete review of systems was obtained and negative except as in the HPI. No significant alcohol, tobacco, or illicit drugs PHYSICAL EXAMINATION General: Well-appearing in no acute distress. HEENT: Head is normocephalic and atraumatic. Hearing and vision are grossly normal. No scleral icterus, jaundice, or pallor. Dental: Tooth 30. extensively eroded and hollowed out, clearly this has recently lost a crown. No lingual or buccal swelling of the gingiva, though she is tender. No submandibular swelling, though again, tender. Normal posterior oropharynx. Neck: Supple, with normal range of motion. Heart: Heart rate is normal and regular Lungs: Breathing at a normal rate, no respiratory distress Abdomen: Nondistended. Neurologic: GCS 15. Moving all 4 extremities spontaneously. Psychiatric: Normal mood and affect. Differential diagnosis includes dental fracture, dental caries, dental infection, lost crown. MDM: 42-year-old woman presenting with lost crown and resulting dental pain. No evidence of drainable abscess, though with this previously being non painful and now painful for the last three days she is likely developed infection. Will put on penicillin, placed a temporary filling common encouraged her to follow up with her dentist RINKU. Final Diagnoses: as of 07/26/23 0237 Complication Mechanical Dental Implant Initial - [place] fell off [facility] Vitals: 07/25/23 21407/25/23 21407/25/23 2200 07/25/23 2230 BP: 110/83 110/83 113/79 (!) 131/103 Patient Position: Pulse: 77 80 83 90 Resp: 16 16 Temp: 36.9 ??C TempSrc: Temporal SpO2: 99% 97% 99% 97% Weight: Height: Medications oxyCODONE IR tablet 5 mg (ROXICODONE) (5 mg oral Given 07/25/232106) Procedures:Dental Procedure Performed by: Michael Arechiga M.D. Authorized by: Michael Arechiga M.D. Care team members present 1. Michael Arechiga M.D. PROCEDURE DETAILS Loose fillings/caps/crowns care: dental cement CONSENT Consent obtained: verbal Consent given by: [...] Indications: dental pain and filling loose/fell out SEDATION / ANESTHESIA Anesthesia method: none POST PROCEDURE DETAILS Procedure completed successfully: yes Complications: no immediate complications COMMENTS Temporary cement successfully placed over the region of the lost crown Clinical Impression: Final diagnoses: [T85.698A] Complication Mechanical Dental Implant Initial - [place] fell off [K02.9] [facility] Disposition: Discharge ED Prescriptions Medication Sig Dispense Start Date End Date Auth. Provider penicillin V potassium (VEETIDS) 500 mg tablet Take 1 tablet (500 mg total) by mouth 4 (four) timesa day for 10 days. 40 tablet 07/25/2023 08/04/2023 Michael Arechgia M.D. Labs Reviewed - No data to display No orders to display Michael Arechiga M.D. 07/26/23 0242 documented in this encounter Plan of Treatment Not on file documented as of this encounter Procedures Procedure Name Priority Date/Time Associated Diagnosis Comments EMERGENCY DENTAL PROCEDURE Routine 07/25/2023 8:38 PM CDT Complication Mechanical Dental Implant Initial [facility] documented in this encounter Results * Dental Procedure (07/25/2023 8:38 PM CDT) [...] Michael Arechiga M.D. PROCEDURE/MINOR SURG ICAL ORDERABLES documented in this encounter Visit Diagnoses Diagnosis Complication Mechanical Dental Implant Initial- Primary [facility] documented in this encounter Administered Medications Inactive Administered Medications - up to 3 most recent administrations Medication Order MAR Action Action Date Dose Rate Site oxyCODONE IR tablet 5 mg (ROXICODONE) 5 mg, oral, Once, On Tue07/25/23 at 2101, For 1 dose Given 07/25/2023 9:07 PM CDT 5 mg documented in this encounter Active and Recently Administered Medications Times are shown in CDT. Scheduled Medication Order 07/23/2023 07/24/2023 07/25/2023 oxyCODONE IR tablet 5 mg (ROXICODONE) (COMPLETED) 5 mg, oral, Once, On Tue07/25/23 at 2101, For 1 dose 2106 (Given - Provid er: Yannick Perry., R.N.) documented in this encounter Care Teams Business Process Expert Relationship Specialty Start Date End Date Elsewhere, Pcp PCP - General Internal Medicine 07/25/23 documented as of this encounter
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
--- OUTSIDE RECORDS SUMMARY | 2023-08-20 14:37 | XMS_ITS | Encounter Summary ---
Author Organization [facility] Address [address] [facility] [place] [address] Care Team Providers Care Recreational Programs Director Name Role Phone Manuel Sanches MD Primary Care Provider [phone] No Ref-Primary, Physician Unavailable Aurelia Farah MD Unavailable Sherice Walter RN Unavailable Aurelia Farah MD Unavailable Encounter Details Date Type Department Care Team (Late st Contact Info) Description 10/08/2021 MyC Medical Advice [facility] [address] [place] [address] [facility] [place] [address] Aurelia Farah MD [address] [place] [address] [address] [place], [place] [address] Social History Tobacco Use Types Packs/Day Years Used Date Smoking Tobacco: Former Cigarettes Q uit: 11/29/2015 Smokeless Tobacco: Never Alcohol Use Standard Drinks/Week Comments Yes 0 (1 standard drink = 0.6 oz pur e alcohol) Humiliation, Afraid, Rape, and Kick questionnair e Answer Date Recorded Within the last year, have y ou been afraid of your partner or ex-partner? No 09/08/2021 Within the last year, have y ou been humiliated or emotionally abused in other ways by your partner or ex-partner? No Within the last year, have y ou been kicked, hit, slapped, or otherwise physically hurt by your partner or ex-partner? No 09/08/2021 Within the last year, have y ou been raped or forced to have any kind of sexual activity by your partner or ex-partner? No 09/08/2021 Sex and Gender Information Value Date Recorded Sex Assigned at Not on file Gender Identity Not on file Sexual Orientation Not on file COVID-19 Exposure Response Date Recorded In the last 10 days, have yo u been in contact with someone who was confirmed or suspected to have Coronavirus/COVID-19? No / Unsure 09/29/2021 11:49 AM CDT documented as of this encounter Plan of Treatment Not on file documented as of this encounter Visit Diagnoses Not on filedocumented in this encounter Care Teams Recreational Programs Director Relationship Specialty Start Date End Date Manuel Sanches MD PCP - General Family Medicine 08/19/21 No Ref-Primary, Physician 08/19/21 Aurelia Farah MD [address] [address] Gynecologic Oncology 08/19/21 Sherice Walter, RN Specialty Household Cook Gynecologic Oncology 09/12/21 Aurelia Farah MD [address] [place] [address] [id number] Assigned Cancer Care Provider 09/19/21 05/12/23 documented as of this encounter
--- OUTSIDE RECORDS SUMMARY | 2023-08-20 14:37 | XMS_ITS | Encounter Summary ---
Author Organization [facility] Address [address] [place] [address] Care Team Providers Care Solar Designer Name Role Phone Elsewhere, Pcp Primary Care Provider Unavailabl e Reason for Visit * Reason Comments Flank Pain Patient presents wit h left flank pain which radiates to left abdomen. States pain started yesterday. Hx of kidney disease. Encounter Details Date Type Department Care Team (Late st Contact Info) Description 05/30/2023 2:59 PM CDT - 05/30/2023 5:19 PM CDT Emergency [place] [facility] [address] [place] [address] Juliet Alfaro M.D., M.P.H. [address] [place] [id number] Pyelonephritis Acute (Primary Dx); Abdominal Pain Discharge Disposition: Home or Self Care Social History Tobacco Use Types Packs/Day Years Used Date Smoking Tobacco: Former Passive Smoke Exposure: Past Smokeless Tobacco: Never Comments:10 cigs weekly Alcohol Use Standard Drinks/Week Comments Yes 0 [...] Sign Reading Time Taken Comments Blood Pressure 117/89 05/30/2023 5:00 PM CDT Pulse 92 05/30/2023 5:15 PM CDT Temperature - - Respiratory Rate - - Oxygen Saturation 99% 05/30/2023 5:15 PM CDT Inhaled Oxygen Concentration - - Weight 83.4 kg (183 lb 13.8 oz) 05/30/2023 3:15 PM CDT Height - - Body Mass Index 29.68 01/02/2023 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 - 05/30/2023 4:40 PM CDT Use Aleve instead of ibuprofen twice a day as directed. You can also use heat but do not fall asleep on the heating pad and do not uses any gel answer pads. Continue to follow up with primary care physician in the next 2-3 days. You can use Pyridium as directed to help with painful urination. A prescription has been sent to [facility] in [place]. Please use as directed in May side effects prior to use. Use Omnicef as directed twice a day. You can start your 1st dose tomorrow evening as you received IV antibiotics here in the emergency department. Signs to return to the emergency department include worsening pain, fever greater than 100, unable to urinate, or concerned your condition has worsened. * Attachments The following attachments cannot be sent through Care Everywhere. * Pyelonephritis Adult Ciuq-uq-Ibmy (Greek) documented in this encounter Medications at Time of Discharge Medication Sig Dispensed Refills Start Date End Date FLUoxetine (PROzac) 40 mg capsule Take 40 mg by mouth daily. Not taking LORazepam (ATIVAN) 1 mg tablet Take 0.5 [...] needed for painful urination. 10 tablet 05/30/2023 cefdinir (OMNICEF) 300 mg capsule Take 1 capsule (300 mg total) by mouth 2 (two) times a day before breakfast and dinner for 6 days. 12 capsule 05/31/2023 06/06/2023 documented as of this encounter ED Notes * Juliet Alfaro M.D., M.P.H. - 05/30/2023 3:08 PM CDT SUBJECTIVE CHIEF COMPLAINT/REASON FOR VISIT Flank Pain (Patient presents with left flank pain which radiates to left abdomen. States pain started yesterday. Hx of kidney disease. ) HISTORY OF PRESENT ILLNESS History provided by: Patient This is a pleasant 42 year old female with LUQ pain radiates to the back. She notes she has had this pain for some time. She had pain for 3 weeks at that time and xray was negative. She was GI for an endoscopy and colonoscopy from PCP.She notes her pain worsened on Tuesday into now. Mid-March was when she last did not have the pain. No weight loss. Last colonoscopy was last September with polyps but otherwise normal. She takes 4 tablets 4 times a day of ibuprofen. She has taken this for 3 weeks prior to coming to the ED the last time. She has a h/o colon cancer at age [age] years old. No black or bloody stool but are loose at baseline from prior abdominal surgeries. She is not sexually active and does not believe she is and denies abnormal discharge. She does have some sharp pain occasionally when urinating. Her pain is worse with lying down and when she went around the sqvof-v-ryuh. No fever/chills, + nausea, no vomiting. She is passing and she is having bowel movements. No CP. She notes she has more pain with deep breathing. REVIEW OF SYSTEMS OBJECTIVE Initial Vitals [05/30/23 1459] Temp Pulse Heart Rate Resp BP SpO2 Pain Score 8 PHYSICAL EXAMINATION Constitutional: Nursing note and vitals reviewed. She appears not lethargic. No distress. HENT: Head: Atraumatic. No signs of injury. Mouth/Throat: Mucous membranes are moist. Eyes: No scleral icterus noted, face symmetric Neck: Neck supple. Cardiovascular: Regular rhythm. Capillary refill: takes less than 3 seconds Pulmonary/Chest: Effort normal and breath sounds normal. There is normal air entry. No stridor. No tachypnea. No respiratory distress. Expiration is no prolonged expiration. Air movement is not decreased. She has no wheezes. She has no rhonchi. She has no rales. She exhibits no retraction. Abdominal: Soft. exhibits no distension and no mass. There is no abdominal tenderness. There is no rebound and no guarding. Genitourinary: Genitourinary Comments: No CVAT or spasm Musculoskeletal: Cervical back: Neck supple. No rigidity. Comments: Moving all extremities normally Neurological: Alert. No focal deficits noted Skin: Skin is warm, skin not cool and skin not moist. No rash noted. She is not diaphoretic. No rash Psychiatric: She has a normal mood and affect. ASSESSMENT/PLAN Assessment and Plan This is a pleasant 42-year-old female with acute on chronic abdominal pain and also found to have pyelonephritis. UA was positive for infection and we will treat with Rocephin. She was given fentanyland oxycodone for pain here in the emergency department as well as Pyridium. Labs demonstrated normal electrolytes and normal kidney function. CBC without leukocytosis or anemia. CT reviewed and no obstructing stone or acute pathology. Would recommend continued follow up with primary care physicianfor further evaluation of her ongoing pain. She can use Pyridium and Tylenol at home as well as naproxen or ibuprofen gel caps. I did enrollment counselor the patient on appropriate use of NSAIDs until only use these for a couple of days as to prevent the formation of a gastric ulcer. She should follow up with primary care physician in 2-3 days if symptoms are not improving. Patient was in good agreement withthis plan.. DIFFERENTIAL DIAGNOSES Renal stone, muscle spasm, AAA, UTI, pyelonephritis, spleen rupture, diverticulitis, mass, sbo, diverticulitis, amongst others. ED Course as of 05/30/23 1851 Mon May 30, 2023 155 is negative. UA shows WBCs with some RBCs and bacteria present. In treat for UTI. Given patient's peritoneal symptoms, we will pursue a CT at this time. 1556 Fentanyl was given for pain. 1 L IV fluid hydration was given. 162 FINDINGS: Lung bases are clear. There is no nephro or ureteral sinuses. There is an unchanged smallleft renal cyst. The bladder and genitourinary structures of the pelvis are within normal limits. The upper abdominal organs are otherwise within normal limits. The upper abdominal vasculature is patent. There is no upper abdominal adenopathy. There istrace free fluid in the pelvis. The colon and small bowel are of normal caliber. There is no abdominal or pelvic adenopathy. There are mild arthritic changes of the visualized skeleton. There is no worrisome bone lesion. IMPRESSION: 1. No acute abdominal pathology. 2. Postsurgical changes of prior colon resection. Final Diagnoses: as of 05/30/231850 Pyelonephritis Acute Abdominal Pain My CT Scan interpretation includes the following comments: No obstruction. I discussed the management of the patient with: Prior ED note. Juliet Alfaro M.D., M.P.H. 05/30/231850 documented in this encounter Plan of Treatment Not on file documented as of this encounter Procedures Procedure Name Priority Date/Time Associated Diagnosis Comments CT ABDOMEN PELVIS WITH IV CONTRAST RAD - Semiurgent (Fast; most ED patients; some inpatients) 05/30/2023 3:44 PM CDT CBC WITH DIFFERENTIAL, B STAT 05/30/2023 3:17 PM CDT LIPASE, S/P STAT 05/30/2023 3:17 PM CDT COMPREHENSIVE METABOLIC PANEL, S/P STAT 05/30/2023 3:17 PM CDT URINALYSIS WITH MICROSCOPIC IF INDICATED, U STAT 05/30/2023 3:15 PM CDT HC URINALYSIS AUTO W MICRO STAT 05/30/2023 3:15 PM CDT BACTERIAL CULTURE, AEROBIC + SUSC, URINE Routine 05/30/2023 3:05 PM CDT TEST, POCT, U (LAB) STAT 05/30/2023 3:05 PM CDT documented in this encounter Results * CT Abdomen Pelvis with IV Contrast [...] prior colon resection. Juliet Alfaro M.D., M.P.H. [facility] [place] ED[place] * Lipase (05/30/2023 3:17 PM CDT) Lipase, P 37 13 - 60 U/L 05/30/2023 3: 43 PM CDT NPRG Blood (Blood, Venous) 05/30/2023 3:17 PM CDT 05/30/2023 3:20 PM CDT Narrative Authorizing Provider Result Ana Alfaro M.D., M.P.H. LAB BLOOD A DD-ON [facility] [address] [place] [address], [facility] NPRG [facility] [address] [place] [address] * Comprehensive Metabolic Panel (05/30/2023 3:17 PM [...] Alfaro M.D., M.P.H. LAB BLOOD A DD-ON [facility] [address] [place] [address], [facility] NPRG [facility] [address] [place] [address] * CBC with Differential, Blood (05/30/2023 3:17 [...] Alfaro M.D., M.P.H. LAB BLOOD A DD-ON [facility] [address] [place] [address], [facility] NPRG [facility] [address] [place] [address] * (ABNORMAL) Microscopic Manual (05/30/2023 3:15 PM [...] 3:15 PM CDT 05/30/2023 3:22 PM CDT Narrative Authorizing Provider Result Ana Alfaro M.D., M.P.H. LAB URINE O RDERABLES [facility] [address] [place] [address], [facility] NPRG [facility] [address] [place] [address] * (ABNORMAL) Urinalysis with Microscopic if Indicated [...] 8.0 05/30/2023 3:26 PM CDT NPRG Specific [place] 1.020 1.001 - 1.035 05/30/2023 3:26 PM CDT NPRG Urobilinogen 1.0 0.2 - 1.0 mg/dL 05/30/2023 3:26 PM CDT NPRG Urine (Urine, Midstream) 05/30/2023 3:15 PM CDT 05/30/2023 3:22 PM CDT Juliet Alfaro M.D., M.P.H. LAB URINE O RDERABLES [facility] [address] [place] [address], [place] NPRG [facility] [address] [place] [address] * (ABNORMAL) Bacterial Culture, Aerobic + Susceptibility, [...] OLOGY - GENERAL ORDERABLES Performing Organization Address [facility] Co de Phone Number [facility] [address] [place] [address], [facility] MKTO [facility] [place] [address] [place] [address] * Test, POCT, Urine (Lab) (05/30/2023 3:05 PM CDT) Test, POCT, U Negative 05/30/2023 3:29 PM CDT NPRG Urine (Urine, Midstream) 05/30/2023 3:05 PM CDT 05/30/2023 3:22 PM CDT Juliet Alfaro M.D., M.P.H. LAB POCT OR DERABLES - DEVICE Performing Organization Address [facility] Co de Phone Number [facility] [address] [place] [address], [facility] NPRG [place] [address] [place] [address] documented in this encounter Visit Diagnoses Diagnosis Pyelonephritis Acute- Primary Abdominal Pain documented in this encounter Administered Medications Inactive Administered Medications - up to 3 most recent administrations Medication Order MAR Action Action Date Dose Rate Site cefTRIAXone injection 2 g (ROCEPHIN) 2 g, intravenous, Once, On 05/30/23 at 1630, For 1 dose, If needed, reconstitute vial per package insert instructions. See IVAG for administration guidelines., Drug Monitoring Program: Pharmacist to adjust medication dosing based on indication and drug clearance factors., Indications: Upper UTI (pyelonephritis) Given 05/30/2023 4:53 PM CDT 2 g fentaNYL injection 75 mcg (SUBLIMAZE) 75 mcg, intravenous, Once, On Tue05/30/23 at 1514, For 1 dose Given 05/30/2023 3:25 PM CDT 75 mcg iohexoL 300 mg iodine/mL solution 1-200 mL (OMNIPAQUE) 1-200 mL, intravenous, Once in imaging, contrast, Starting on Tue05/30/23 at 1545, For 1 dose, Dose per Radiant Medication Guidelines Given 05/30/2023 3:54 PM CDT 140 mL NaCl 0.9 % bolus 1,000 mL 1,000 mL, intravenous, at 1,000 mL/hr, Administer over 1 Hours, Once, On Tue05/30/23 at 1507, For 1 dose New Bag 05/30/2023 3:25 PM CDT 1,000 mL 1000 mL/hr oxyCODONE IR tablet 5 mg (ROXICODONE) 5 mg, oral, Once, On Tue05/30/23 at 1646, For 1 dose Given 05/30/2023 4:53 PM CDT 5 mg phenazopyridine tablet 200 mg (PYRIDIUM) 200 mg, oral, Once, On Tue05/30/23 at 1646, For 1 dose, Drug Monitoring Program: Pharmacist to adjust medication dosing based on indication and drug clearance factors. Given 05/30/2023 4:53 PM CDT 200 mg sodium chloride 0.9 % flush 100 mL 100 mL, intravenous, Once in imaging, line care, for CT Exam, Starting on Tue05/30/23 at 1545, For 1 dose Given 05/30/2023 3:52 PM CDT 100 mL sodium chloride 0.9 % injection 10 mL 10 mL, intravenous, Once in imaging, line care, Starting on Tue05/30/23 at 1545, For 1 dose Given 05/30/2023 3:51 PM CDT 10 mL documented in this encounter Active and Recently Administered Medications Times are shown in CDT. Scheduled Medication Order 05/28/2023 05/29/2023 05/30/2023 cefTRIAXone injection 2 g (ROCEPHIN) (COMPLETED) 2 g, intravenous, Once, On Tue05/30/23 at 1630, For 1 dose, If needed, reconstitute vial per package insert instructions. See IVAG for administration guidelines., Drug Monitoring Program: Pharmacist to adjust medication dosing based on indication and drug clearance factors., Indications: Upper UTI (pyelonephritis) 1652 (Given - Provid er: Ledy Garcia R.N.) fentaNYL injection 75 mcg (SUBLIMAZE) (COMPLETED) 75 mcg, intravenous, Once, On Tue05/30/23 at 1514, For 1 dose 1525 (Given - Provid er: Ledy Garcia R.N.) NaCl 0.9 % bolus 1,000 mL (COMPLETED) 1,000 mL, intravenous, at 1,000 mL/hr, Administer over 1 Hours, Once, On Tue05/30/23 at 1507, For 1 dose 1525 (New Bag - Prov ider: Ledy Garcia R.N.)1640 (Stopped - Provider: Ledy Garcia R.N.) oxyCODONE IR tablet 5 mg (ROXICODONE) (COMPLETED) 5 mg, oral, Once, On Tue05/30/23 at 1646, For 1 dose 165 (Given - Provid er: Ledy Garcia R.N.) phenazopyridine tablet 200 mg (PYRIDIUM) (COMPLETED) 200 mg, oral, Once, On Tue05/30/23 at 1646, For 1 dose, Drug Monitoring Program: Pharmacist to adjust medication dosing based on indication and drug clearance factors. 165 (Given - Provid er: Ledy Garcia R.N.) PRN Medication Order 05/28/2023 05/29/2023 05/30/2023 iohexoL 300 mg iodine/mL solution 1-200 mL (OMNIPAQUE) (COMPLETED) 1-200 mL, intravenous, Once in imaging, contrast, Starting on Tue05/30/23 at 1545, For 1 dose, Dose per Radiant Medication Guidelines 1554 (Given - Provid er: Arden Harper, Rylee.T.(R)(CT), R.T.(R)) sodium chloride 0.9 % flush 100 mL (COMPLETED) 100 mL, intravenous, Once in imaging, line care, for CT Exam, Starting on Tue05/30/23 at 1545, For 1 dose 1552 (Given - Provid er: Arden Harper, R.T.(R)(CT), R.T.(R)) sodium chloride 0.9 % injection 10 mL (COMPLETED) 10 mL, intravenous, Once in imaging, line care, Starting on Tue05/30/23 at 1545, For 1 dose 1551 (Given - Provid er: Itzel Coronado(R)(CT), RSamira(R)) documented in this encounter Care Teams Solar Designer Relationship Specialty Start Date End Date Elsewhere, Pcp PCP - General Internal Medicine 10/27/22 07/24/23 documented as of this encounter
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
--- OUTSIDE RECORDS SUMMARY | 2023-08-20 14:37 | XMS_ITS | Clinical Summary ---
Author Organization [facility] Address [place], [place] [address] Care Team Providers Care Fruit Picker Machine Operator Name Role Phone Ibrahima Sanches MD Primary Care Provider [phone] Allergies Active Allergy Reactions Criticality Noted Date Comments Amoxicillin-Pot Clavulanate Nausea Only 014 Medications Medication Sig Dispensed Refills Start Date End Date Status methylPREDNISolone (MEDROL, SONALI,) 4 mg tabletIndications:Mu scle spasm of back Take by mouth as instructed per packaging. 1 Package 06/14/2017 Active cyclobenzaprine (FLEXERIL) 5 mg tabletIndications:Mu scle spasm of back Take 1-2 tablets by mouth 3 times daily if needed for Muscle Spasm. 60 tablet 3 06/14/2017 Active ondansetron (ZOFRAN ODT) 4 mg disintegrating tabletIndications:Na usea Place 1 tablet on the tongue every 8 hours if needed for Nausea/Vomiting. 30 tablet 06/14/2017 Active methocarbamol (ROBAXIN) 750 mg tabletIndications:Mu scle spasm Take 1 tablet by mouth 4 times daily. 40 tablet 06/15/2017 Active HYDROcodone-acetamin ophen, 5-325 mg, (NORCO) per tabletIndications:De ntal abscess,Dental caries Take 1 tablet by mouth every 6 hours if needed for Pain Max acetaminophen dose: 4000 mg in 24 hrs. 12 tablet 11/21/2019 Active traMADoL (ULTRAM) 50 mg tabletIndications:Ac ewiiaapaayp pain of left knee,Left foot pain Take 1 Tablet (50 mg) by mouth every 6 hours if needed for Pain. 5 Tablet 09/02/2022 Active naproxen (NAPROSYN) 500 mg tabletIndications:St rain of neck muscle, initial encounter Take 1 Tablet (500 mg) by mouth every 12 hours if needed for Pain. 15 Tablet 09/21/2022 Active cyclobenzaprine (FLEXERIL) 10 mg tabletIndications:St rain of neck muscle, initial encounter Take 1 Tablet (10 mg) by mouth 3 times daily if needed for Muscle Spasm. 15 Tablet 09/21/2022 Active Active Problems Problem Noted Date Diagnosed Date h/o Colorectal cancer 08/07/2012 Overview: Removed in 2003. Presented with rectal bleeding. Treated in [place]. Immunizations Name Administration Dates Next Due Td (Age >=7 Years) 07/12/1996 Family History Medical History Relation Name Comments Arthritis Father RA Hyperlipidemia Father Cancer-breast Maternal Grandmother Diabetes Maternal Grandmother Hyperlipidemia Mother Arthritis Sister RA Relation Name Status Comments Father Maternal Grandmother Mother Sister Social History Tobacco Use Types Packs/Day Years Used Date Smoking Tobacco: Light Smoker Cigarettes Smokeless Tobacco: Never Tobacco Cessation:Ready to Q uit: Yes; Counseling Given: Yes Alcohol Use Standard Drinks/Week Comments Yes 0 (1 standard drink = 0.6 oz pur e alcohol) twice montly PHQ-2 Answer Date Recorded PHQ-2 Score 0 05/02/2018 Sex and Gender Information Value Date Recorded Sex Assigned at Not on file Gender Identity Not on file Sexual Orientation Not on file Obstetrics History Para Term AB IAB SAB Ectopic Multiple Livin g Live Births 1 1 Date Outcome GA Total Labor Labor/2nd/3rd Weight Sex Type Anes PTL Savannah A1 A5 Name Clin C-Sec tion Comments:labor dystoci a Last Filed Vital Signs Vital Sign Reading Time Taken Comments Blood Pressure 126/87 12/09/2022 1:13 PM CDT Pulse 105 12/09/2022 3:13 PM CDT Temperature 36.8 ??C (98.3 ??F) 12/09/2022 1:13 PM CD T Respiratory Rate 20 12/09/2022 3:13 PM CDT Oxygen Saturation 98% 12/09/2022 3:13 PM CDT Inhaled Oxygen Concentration - - Weight 76.7 kg (169 lb) 12/09/2022 1:13 PM CDT Height 167.6 cm (5' 6) 12/09/2022 1:13 PM CDT Body Mass Index 27.28 12/09/2022 1:13 PM CDT Plan of Treatment Health Maintenance Due Date Last Done Comments HIV for age 15-65 1997 Hepatitis C screening for age 18-79 2000 Tetanus booster 02/28/2018 02/29/2008 (Comp leted outside of [facility]), 07/12/1996 BMI (ht and wt on same day) for age 18+ 06/14/2018 06/14/2017 Depression screening for age 12+ 06/14/2018 06/14/2017 COVID-19 vaccine series ( season) 2022 04/28/2020, 03/31/2020 Influenza for age 9-49 10/30/2023 Pap test for age 21-65 06/29/2024 06/29/2021, 2021 Tdap Completed 02/29/2008 (Comp leted outside of [facility]) Pneumococcal series for age 6-64 Aged Out No longer eligible based on patient's age to complete this topic Procedures Procedure Name Priority Date/Time Associated Diagnosis Comments HPV THIN PREP Routine 06/29/2021 10:46 AM CDT from Last 3 Months or Most Recently Relevant to Health Maintenance Results * (ABNORMAL) HPV HIGH RISK (06/29/2021 10:46 AM CDT) TYPE 16 Negative Negative 07/01/2021 12:03 PM CDT [facility] TYPE 18 Negative Negative 07/01/2021 12:03 PM CDT [facility] OTHER HIGH RISK TYPES Positive(A) Negative 07/01/2021 12:03 PM CDT [facility] Other (Cervical/Vagina l) 06/29/2021 10:46 AM CDT 06/30/2021 7:39 AM CDT Narrative [facility] - 07/01/2021 12:03 PM CDT Specimen is positive for the DNA of any one of, or combination of, the following high risk HPV types: 31, 33, 35, 39, 45, 51, 52, 56, 58, 59, 66, 68. HPV types 16 and 18 DNA were undetectable or below the pre-set threshold. ? Methodology: Mimi Kimberly 4800 HPV Test Ibrahima Sanches MD MICROBIOLOGY [facility] [address] [place] [address], from Last 3 Months or Most Recently Relevant to Health Maintenance Care Teams Fruit Picker Machine Operator Relationship Specialty Start Date End Date Ibrahima Sanches MD PCP - General Family Practice 03/04/20
--- OUTSIDE RECORDS SUMMARY | 2023-08-20 14:37 | XMS_ITS | Encounter Summary ---
Author Organization [facility] Address [address] [place] [address] Care Team Providers Care Computer Systems Software Architect Name Role Phone Andrés Collazo MD Primary Care Provider Reason for Visit * Reason Comments Phq9 Follow Up Encounter Details Date Type Department Care Team (Late st Contact Info) Description 10/20/2022 Nurse Triage [facility] [address] [place] [address] Andrés Collazo MD [address] [place] [address] Phq9 Follow Up Social History Tobacco Use Types Packs/Day Years Used Date Smoking Tobacco: Never Smokeless Tobacco: Never Alcohol Use Standard Drinks/Week Comments Not Currently 0 (1 standard drink = 0.6 oz pur e alcohol) PHQ-2 Answer Date Recorded PHQ-2 Score 4 10/20/2022 Sex and Gender Information Value Date Recorded Sex Assigned at Not on file Gender Identity Not on file Sexual Orientation Not on file documented as of this encounter Nursing Notes * Mona Aburto RN - 10/21/2022 8:52 AM CDT Left message to return call to Nurse Line at [phone]. +PHQ-9 with a score of 17 dated 10/20/22. No scheduled appointment. * Markus Cortez RN - 10/20/2022 12:00 PM CDT Call placed to patient, left message to call back, call back number provided. documented in this encounter Plan of Treatment Not on file documented as of this encounter Visit Diagnoses Not on filedocumented in this encounter Care Teams Computer Systems Software Architect Relationship Specialty Start Date End Date Andrés Collazo MD [address] [place] [address] PCP - General Family Practice 08/12/22 documented as of this encounter
--- OUTSIDE RECORDS SUMMARY | 2023-08-20 14:37 | XMS_ITS | Encounter Summary ---
Author Organization [facility] Address [address] [place] [address] Care Team Providers Care Supervisor Filling And Packing Name Role Phone Manuel Sanches MD Primary Care Provider No Ref-Primary, Physician Unavailable Aurelia Farah MD Unavailable [phone] Sherice Walter RN Unavailable [phone] Aurelia Farah MD Unavailable Encounter Details Date Type Department Care Team (Late st Contact Info) Description 07/05/[address] [facility] [place] [id number] Otilia Hernandez, RN Social History Tobacco Use Types Packs/Day Years [...] on filedocumented in this encounter Care Teams Supervisor Filling And Packing Relationship Specialty Start Date End Date Manuel Sanches MD PCP - General Family Medicine 08/19/21 No Ref-Primary, Physician 08/19/21 Aurelia Farah MD [address] [place] [address] [phone] Gynecologic Oncology 08/19/21 Sherice Walter, MYRNA Specialty [place]ie Gynecologic Oncology 09/12/21 Aurelia Farah MD [address] [place] [address] [phone] Assigned Cancer Care Provider 09/19/21 05/12/23 documented as of this encounter
--- OUTSIDE RECORDS SUMMARY | 2023-08-20 14:37 | XMS_ITS | Clinical Summary ---
Author Organization [facility] Address [address] [place] [address] Care Team Providers Care Photographer Scientific Name Role Phone Manuel Sanches MD Primary Care Provider [phone] No Ref-Primary, Physician Unavailable Aurelia Farah MD Unavailable [phone] Sherice Walter RN Unavailable [phone] Allergies Active Allergy Reactions Criticality Noted Date Comments Acetaminophen-Codeine GI Disturbance 04/29/2017 Amoxicillin-Pot Clavulanate Nausea 10/18/19 14 Lactose Nausea 12/06/2006 Medications Medication Sig Dispensed Refills Start Date End Date Status traMADol (ULTRAM) 50 MG tablet TAKE 1-2 TABLETS BY MOUTH EVERY 6 HOURS NEEDED. 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 No 09/08/2021 Adolescent Education Answer Date Record ed Getting School Help Needed Not on file 12/01 Sex and Gender Information Value Date Recorded Sex Assigned at Not on file Gender Identity Not on file Sexual Orientation Not on file Last Filed Vital Signs Vital Sign Reading Time Taken Comments Blood Pressure 109/73 11/03/2021 3:00 PM CDT Pulse 78 11/03/2021 3:00 PM CDT Temperature 36.3 ??C (97.4 ??F) 11/03/2021 3:00 PM CD T Respiratory Rate 16 11/03/2021 3:00 PM CDT Oxygen Saturation 97% 11/03/2021 3:00 PM CDT Inhaled Oxygen Concentration - - Weight 76.7 kg (169 lb 3.2 oz) 11/03/2021 3:00 P M CDT Height 170.2 cm (5' 7) 11/03/2021 3:00 PM CDT Body Mass Index 26.5 11/03/2021 3:00 PM CDT Plan of Treatment Health Maintenance Due Date Last Done Comments ADVANCE CARE PLANNING 1982 ANNUAL REVIEW OF HM ORDERS 1982 MAMMO SCREENING 1982 YEARLY PREVENTIVE VISIT 1982 HIV SCREENING 1997 HEPATITIS C SCREENING 2000 HEPATITIS B IMMUNIZATION (1 of 3 - 19+ 3-dose series) 2001 GLUCOSE 12/11/2014 12/12/2011 LIPID 2022 COVID-19 Vaccine ( season) 2022 04/28/2020, 03/31/2020 PHQ-2 (once per calendar year) 2023 INFLUENZA VACCINE (Season Ended) 2023 PAP 06/29/2024 06/29/2021, 06/29/2021 DTAP/TDAP/TD IMMUNIZATION (8 - Td or Tdap) 07/29/2030 07/29/2020, 07/12/1996, 07/12/1996, Additional history exists IPV IMMUNIZATION Completed 10/25/1988, , 11/13/1984, Additional history exists HPV IMMUNIZATION Aged Out No longer e ligible based on patient's age to complete this topic MENINGITIS IMMUNIZATION Aged Out No l onger eligible based on patient's age to complete this topic Pneumococcal Vaccine: Pediatrics (0 to 5 Years) and At-Risk Patients (6 to 64 Years) Aged Out No longer eligible based on patient's age to complete this topic RSV MONOCLONAL ANTIBODY Aged Out No l onger eligible based on patient's age to complete this topic Procedures Procedure Name Priority Date/Time Associated Diagnosis Comments BASIC METABOLIC PANEL STAT 12/12/2011 1:50 AM CDT from Last 3 Months or Most Recently Relevant to Health Maintenance Results * Basic metabolic panel (12/12/2011 1:50 AM CDT) Sodium 138 133 - 144 mmol/L [facility] Potassium 3.4 3.4 - 5.3 mmol/L [facility] Chloride 104 94 - 109 mmol/L [facility] Carbon Dioxide 22 20 - 32 mmol/L [facility] Anion Gap 11 6 - 17 mmol/L [facility] Glucose 99 60 - 99 mg/dL [facility] Urea Nitrogen 6 5 - 24 mg/dL [facility] Creatinine 0.65 0.52 - 1.04 mg/dL [facility] GFR Estimate >90 >60 mL/min/1.7 m2 [facility] GFR Estimate If Black >90 >60 mL/min/1.7 m2 [facility] Calcium 9.1 8.5 - 10.4 mg/dL [facility] Blood specimen (specimen) 12/12/2011 1:50 AM CDT 12/12/2011 1:51 AM CDT Chantell Gonzalez MD LAB - BLOOD ORDERA BLES [facility] from Last 3 Months or Most Recently Relevant to Health Maintenance Care Teams Photographer Scientific Relationship Specialty Start Date End Date Manuel Sanches MD PCP - General Family Medicine 08/19/21 No Ref-Primary, Physician 08/19/21 Aurelia Farah MD [address] [place] [phone] Gynecologic Oncology 08/19/21 Sherice aWlter, RN Specialty Grapple Yarder Operator Gynecologic Oncology 09/12/21
--- OUTSIDE RECORDS SUMMARY | 2023-08-20 14:37 | XMS_ITS | Referral Summary ---
Author Organization [place] Address [address] [facility] [place] [address] Care Team Providers Care Railway Patrol Officer Name Role Phone Maneul Sanches MD Primary Care Provider No Ref-Primary, Physician Unavailable [phone] Aurelia Farah MD Unavailable Sherice Walter RN Unavailable Allergies Active Allergy Reactions Criticality Noted Date [...] Overview: Added automatically from request for surgery [id number] Social History Tobacco Use Types Packs/Day Years [...] 11/03/2021 3:00 PM CDT Plan of Treatment Not on file Procedures Procedure Name Priority Date/Time Associated Diagnosis Comments BASIC METABOLIC PANEL STAT 12/12/2011 1:50 AM CDT from Last 3 Months or Most Recently Relevant to Health Maintenance Results * Basic metabolic panel (12/12/2011 1:50 AM CDT) Sodium 138 133 - 144 mmol/L [facility] Potassium 3.4 3.4 - 5.3 mmol/L [facility] Chloride 104 94 - 109 mmol/L [facility] Carbon Dioxide 22 20 - 32 mmol/L [facility] Anion Gap 11 6 - 17 mmol/L [facility] Glucose 99 60 - 99 mg/dL [facility] Urea Nitrogen 6 5 - 24 mg/dL [facility] Creatinine 0.65 0.52 - 1.04 mg/dL [facility] GFR Estimate >90 >60 mL/min/1.7 m2 [facility] GFR Estimate If Black >90 >60 mL/min/1.7 m2 [facility] Calcium 9.1 8.5 - 10.4 mg/dL [facility] Blood specimen (specimen) 12/12/2011 1:50 AM CDT 12/12/2011 1:51 AM CDT Chantell Gonzalez MD LAB - BLOOD ORDERA BLES [facility] from Last 3 Months or Most Recently Relevant to Health Maintenance Care Teams Railway Patrol Officer Relationship Specialty Start Date End Date Manuel Sanches MD PCP - General Family Medicine 08/19/21 No Ref-Primary, Physician 08/19/21 Aurelia Farah MD [address] [place] [phone] Gynecologic Oncology 08/19/21 Sherice Walter, MYRNA Specialty Payroll Human Resources Assistant Gynecologic Oncology 09/12/21
[2023-08-20] MEDS: hydrOXYzine pamoate 25 MG CAPSULE 50 MG PO (14:44)
--- NOTE | 2023-08-20 15:09 | ED.ANXIETY ---
HPI - Anxiety General Date Seen: 08/20/23 Chief Complaint: Anxiety Stated Complaint: panic attacks, hasn't slept since yesterday Time Seen by Provider: 08/20/23 14:11 Source: patient Mode of arrival: ambulatory Limitations: no limitations History of Present Illness HPI narrative: She carries a 42-year-old female presenting to the emergency department for anxiety. She states she has a history of panic attacks was previously on Ativan to help with her panic attacks. Does not take any anxiety medication currently. Her primary care provider recently stopped prescribing her Ativan and told her she needs to see a psychiatric professional for medications. Patient states she ran out of her meds 3 weeks ago and was doing okay up until about 3 days ago when she started having her panic attacks as been having difficulty sleeping since then. She states this feels just like her previous panic attacks. Previously she states she has been on hydroxyzine and while it seemed to help some and never took away the symptoms completely and she eventually got use the medicine and quit helping. She has not had for several years. Denies abdominal pain, headache, vision changes, chest pain, shortness of breath, weakness, numbness. Related Data Previous Rx's ?Medication ?Instructions ?Recorded hydroxyzine pamoate 50 mg capsule 50 mg PO QID PRN #20 caps 08/20/23 lorazepam 1 mg tablet (Ativan) 1 mg PO BID PRN #6 tabs 08/20/23 Allergies Allergy/AdvReac Type Severity Reaction Status Date / Time amoxicillin [From Augmentin] Allergy Unknown N/V Verified 09/07/22 16:17 clavulanic acid Allergy Unknown N/V Verified 09/07/22 16:17 [From Augmentin] codeine Allergy Unknown N/V Verified 09/07/22 16:17 lactose Allergy Unknown Verified 09/07/22 16:17 Review of Systems Status of ROS: Reports: 10 or more systems reviewed and unremarkable except as noted in History and below [facility] Medical History Left foot pain ?M79.672 - Pain in left foot (ICD-10) Carcinoma in situ of cervix (2003) ?D06.9 - Carcinoma in situ of cervix, unspecified (ICD-10) Adhesive capsulitis ?M75.00 - Adhesive capsulitis of unspecified shoulder (ICD-10) Surgical History Status post cone biopsy of cervix ?Z98.890 - Other specified postprocedural states (ICD-10) Status post colposcopy (08/10/21) ?Z98.890 - Other specified postprocedural states (ICD-10) History of loop electrosurgical excision procedure (LEEP) of cervix (2003) ?Z98.890 - Other specified postprocedural states (ICD-10) History of abdominal supracervical subtotal hysterectomy (2005) ?Z90.711 - Acquired absence of uterus with remaining cervical stump (ICD-10) Status post partial colectomy ?Z90.49 - Acquired absence of other specified parts of digestive tract (ICD-10) Status post cholecystectomy ?Z90.49 - Acquired absence of other specified parts of digestive tract (ICD-10) Family History Other Breast cancer Diabetes Rheumatoid arteritis Social History Narrative: Former smoker Quit 2017 In the past 12 months, utilities in danger of being shut off: no In past 12 months, lack of transportation kept you from medical appts, meetings, work, or getting things needed for daily living: no In the past 12 mos, have been you worried that your food would run out before you had money to buy more?: never true In the past 12 mos, the food you bought just didn't last and you didn't have money to buy more?: never true Smoking Status: Former smoker Do you use any of these nicotine containing products: None How often do you have a drink containing alcohol: never AUDIT-C Alcohol total score: 0 Non-prescribed substance use: denies use How often does anyone, including family, friends and others, physically hurt you: never How often does anyone, including family, friends and others, insult or talk down to you: never How often does anyone, including family, friends and others, threaten you with harm: never How often does anyone, including family, friends and others, scream or curse at you: never Little interest or pleasure in doing things: more than half the days Feeling down, depressed, or hopeless: nearly every day Exam Narrative: Exam Narrative: Const: Well-nourished, Well-developed, in mild distress Eyes: PERRL, no conjunctival injection, and symmetrical lids HENT: Atraumatic external nose and ears. Moist mucous membranes. Neck: Symmetric, trachea midline, No thyromegaly. CVS: RRR, No murmurs or gallops. Peripheral pulses 2+ and equal in all extremities RESP: Unlabored respiratory effort. Clear to auscultation bilaterally. GI: Nontender/Nondistended, No rebound or guarding. MSK:Extremities w/o deformity, Normal Active ROM Skin: Warm, Dry. No rashes or lesions. Neuro: Normal Muscle tone, No focal neurological deficits. Psych: Awake, Alert, & Oriented x3. Appropriate mood and affect. Const: Vital Signs, click to edit/add: Vital Signs - 24 hr 08/20/23 14:03 Temperature 96.8 F L Pulse Rate [Pulse Oximeter] 104 H Respiratory Rate 18 Blood Pressure [Ri ght Upper Arm] 144/74 H Pulse Oximetry 99 Oxygen Delivery Me thod Room Air Course Vital Signs Vital signs: Initial Vital Signs Temperature 96.8 F L 08/20/23 14:03 Temperature Source Temporal Artery Scan 08/20/23 14:03 Pulse Rate 104 H 08/20/23 14:03 Respiratory Rate 18 08/20/23 14:03 Blood Pressure 144/74 H 08/20/23 14:03 Blood Pressure Mean 97 08/20/23 14:03 Blood Pressure Position Supine 08/20/23 14:03 Pulse Oximetry 99 08/20/23 14:03 Oxygen Delivery Method Room Air 08/20/23 14:03 Vital Signs Temperature 96.8 F L 08/20/23 14:03 Pulse Rate 104 H 08/20/23 14:03 Respiratory Rate 18 08/20/23 14:03 Blood Pressure 144/74 H 08/20/23 14:03 Pulse Oximetry 99 08/20/23 14:03 Oxygen Delivery Method Room Air 08/20/23 14:03 Temperature 96.8 F L 08/20/23 14:03 Pulse Rate 104 H 08/20/23 14:03 Respiratory Rate 18 08/20/23 14:03 Blood Pressure 144/74 H 08/20/23 14:03 Pulse Oximetry 99 08/20/23 14:03 Oxygen Delivery Method Room Air 08/20/23 14:03 Medications Administered Medications: Discontinued Medications Generic Name Dose Route Start Last Admin Trade Name [place] PRN Reason Stop Dose Admin Hydroxyzine Pamoate 50 mg 08/20/23 14:29 08/20/23 14:44 Hydroxyzine Pamoate 25 Mg Capsule PO 08/20/23 14:30 50 mg ONCE ONE Administration Lorazepam 1 mg 08/20/23 15:20 08/20/23 15:31 Lorazepam 1 Mg Tablet PO 08/20/23 15:21 1 mg ONCE ONE Administration MDM - Anxiety MDM Narrative Medical decision making narrative: Patient is a 42-year-old female presenting for an apparent panic attack. Considering she states this feels just like her previous panic attacks it did not believe is necessary to do lab work as is very unlikely to show any abnormalities. She has a history of these panic attacks. Will initially start with hydroxyzine to see if it helps with her anxiety. This was given and she states she feels relatively similar but does not feel like her heart rate has slowed down some. Will give her dose of Ativan. She is feeling better after the Ativan. At this time I feel comfortable discharging her home. I spoke to her about the need to talk to her primary care provider about her panic attack and that I while out give her few doses of Ativan to go home with should not be a get further doses from our emergency department. Also prescribed hydroxyzine and shoulder to try that medication 1st. She is agreeable to that plan Discharge Plan Discharge Clinical Impression: Panic attack Patient Disposition: Home, Self-Care Condition: Improved Instructions: Panic Attack (ED) Additional Instructions: It is very important that you follow-up with your primary care provider about your anxiety and panic attacks. While I did prescribe you some Ativan now is unlikely you will be able to get further doses from our emergency department for the symptoms. Try the hydroxyzine before the Ativan to see if a severe anxiety. Prescriptions: New hydroxyzine pamoate 50 mg capsule 50 mg PO QID PRNQty: 20 0RF lorazepam [Ativan] 1 mg tablet 1 mg PO BID PRNQty: 6 0RF Follow Up/Referrals: Siva Escobar MD [Primary Care Provider] - Stand Alone Forms: [employer] Info Instructions
[2023-08-20] MEDS: LORazepam 1 MG TABLET PO (15:31)
== END 2023-08-20 16:32 | disposition home or self-care (01) ==
PROVIDERS: Emergency Provider Student in an Organized Health Care Education/Training Program; PCP Family Medicine
DX: F41.0 Panic disorder [episodic paroxysmal anxiety] (principal)
CPT/HCPCS: 99282; 99283; 99284; A9270

== ENCOUNTER 2024-04-12 17:42 | Emergency (ER) | payer OTHER, SELFPAY ==
--- OUTSIDE RECORDS SUMMARY | 2024-04-12 17:45 | XMS_ITS | Clinical Summary ---
Author Organization [facility] Address [address] [facility] [place] [address] Care Team Providers Care Electric Container Tester Name Role Phone Manuel Sanches MD Primary Care Provider [phone] No Ref-Primary, Physician Unavailable Aurelia Farah MD Unavailable Sherice Walter RN Unavailable [phone] Allergies Active Allergy Reactions Criticality Noted Date Comments Acetaminophen-Codeine GI Disturbance 04/29/2017 Amoxicillin-Pot Clavulanate Nausea 10/18/19 14 Lactose Nausea 12/06/2006 Medications traMADol (ULTRAM) 50 MG tablet TAKE 1-2 TABLETS BY MOUTH EVERY 6 HOURS NEEDED. 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 Gender Identity Not on file Sexual Orientation Not on file Last Filed Vital Signs Vital Sign Reading Time Taken Comments Blood Pressure 109/73 11/03/2021 3:00 PM CDT Pulse 78 11/03/2021 3:00 PM CDT Temperature 36.3 C (97.4 F) 11/03/2021 3:00 PM CDT Respiratory Rate 16 11/03/2021 3:00 PM CDT [...] 1982 MAMMO SCREENING 1982 YEARLY PREVENTIVE VISIT 1985 HIV SCREENING 1997 HEPATITIS C SCREENING 2000 HEPATITIS B IMMUNIZATION (1 of 3 - 19+ 3-dose series) 2001 GLUCOSE 12/11/2014 12/12/2011 LIPID 2022 COVID-19 Vaccine ( season) 2023 04/28/2020, 03/31/2020 INFLUENZA VACCINE (#1) 2023 PHQ-2 (once per calendar year) 2024 PAP 06/29/2024 06/29/2021, 06/29/2021 DTAP/TDAP/TD IMMUNIZATION (8 - Td or Tdap) 07/29/2030 07/29/2020, 07/12/1996, 07/12/1996, Additional history exists ZOSTER IMMUNIZATION (1 of 2) 2032 RSV VACCINE (1 - 1-dose 75+ series) 2057 HPV IMMUNIZATION Aged Out No longer e ligible based on patient's age to complete this topic MENINGITIS IMMUNIZATION Aged Out No l onger eligible based on patient's age to complete this topic Pneumococcal Vaccine: Pediatrics (0 to 5 Years) and At-Risk Patients (6 to 49 Years) Aged Out No longer eligible based [...] CDT) Sodium 138 133 - 144 mmol/L [facility] Potassium 3.4 3.4 - 5.3 mmol/L [facility] Chloride 104 94 - 109 mmol/L [facility] Carbon Dioxide 22 20 - 32 mmol/L [facility] Anion Gap 11 6 - 17 mmol/L [facility] Glucose 99 60 - 99 mg/dL [facility] Urea Nitrogen 6 5 - 24 mg/dL [facility] Creatinine 0.65 0.52 - 1.04 mg/dL [facility] GFR Estimate >90 >60 mL/min/1.7 m2 [facility] GFR Estimate If Black >90 >60 mL/min/1.7 m2 [facility] Calcium 9.1 8.5 - 10.4 mg/dL [facility] Blood specimen (specimen) 12/12/2011 1:50 AM CDT 12/12/2011 1:51 AM CDT Chantell Gonzalez MD LAB - BLOOD ORDERABLES Fin al Result [facility] [address] [place] [address], [facility] [phone] from Last 3 Months or Most Recently Relevant to Health Maintenance Insurance [facility] Care Teams Electric Container Tester Relationship Specialty Start Date End Date Manuel Sanches MD PCP - General Family Medicine 08/19/21 No Ref-Primary, Physician 08/19/21 Aurelia Farah MD [address] [place] [id number] Gynecologic Oncology 08/19/21 Sherice Walter, RN Specialty Stretcher And Drier Gynecologic Oncology 09/12/21
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
--- OUTSIDE RECORDS SUMMARY | 2024-04-12 17:45 | XMS_ITS | Clinical Summary ---
Author Organization [facility] Address [place], [place] [address] Care Team Providers Care J2Ee Architect Name Role Phone Ibrahima Sanches MD Primary Care Provider [phone] Allergies Active Allergy Reactions Criticality Noted Date Comments Amoxicillin-Pot Clavulanate Nausea Only 014 Medications methylPREDNISolone (MEDROL, SONALI,) 4 mg tabletIndications: Muscle spasm of back Take by mouth as instructed per packaging. 1 Package 06/15/19 18 Active cyclobenzaprine (FLEXERIL) 5 mg tabletIndications: Muscle spasm of back Take 1-2 tablets by mouth 3 times daily if needed for Muscle Spasm. 60 tablet 3 06/15/19 18 Active ondansetron (ZOFRAN ODT) 4 mg disintegrating tabletIndications: Nausea Place 1 tablet on the tongue every 8 hours if needed for Nausea/Vomiting. 30 tablet 06/15/19 18 Active methocarbamol (ROBAXIN) 750 mg tabletIndications: Muscle spasm Take 1 tablet by mouth 4 times daily. 40 tablet 06/16/19 18 Active traMADoL (ULTRAM) 50 mg tabletIndications: Acute pain of left knee,Left foot pain Take 1 Tablet (50 mg) by mouth every 6 hours if needed for Pain. 5 Tablet 09/03/19 23 Active naproxen (NAPROSYN) 500 mg tabletIndications: Strain of neck muscle, initial encounter Take 1 Tablet (500 mg) by mouth every 12 hours if needed for Pain. 15 Tablet 09/22/19 23 Active cyclobenzaprine (FLEXERIL) 10 mg tabletIndications: Strain of neck muscle, initial encounter Take 1 Tablet (10 mg) by mouth 3 times daily if needed for Muscle Spasm. 15 Tablet 09/22/19 23 Active HYDROcodone-acetam inophen (5-325 mg/tablet)Indicati ons:Contusion of right knee, initial encounter,Sprain of right knee, unspecified ligament, initial encounter Take 1 Tablet by mouth 4 times daily if needed for Pain. Max acetaminophen dose: 4000 mg in 24 hrs. 15 Tablet 09/11/19 24 Active crutchIndications: Contusion of right knee, initial encounter,Sprain of right knee, unspecified ligament, initial encounter For home use. Length of need: 10 weeks 2 Each 09/11/19 24 Active Active Problems Problem Noted Date Diagnosed Date h/o Colorectal cancer 08/07/2012 Overview (08/07/2012): Removed in 2003. Presented with rectal bleeding. Treated in [place]. Immunizations Name Administration Dates Next Due Td [...] Answer Date Recorded PHQ-2 Score 0 05/02/2018 Interpersonal Safety Answer Date Record ed Are you being hit, kicked, p ushed or yelled at (see row info)? No 09/11/2023 Interpersonal Safety Abuse 12 - 18 Not on file 09/11/2023 Interpersonal Safety Ambulatory Vulnerability No t on file 09/11/2023 Comments No Sex and Gender Information Value Date Recorded Sex Assigned at Not on file Legal Sex Female 2:05 PM CDT Gender Identity Not on file Sexual Orientation Not on file Obstetrics History Para Term AB IAB SAB Ectopic Multiple Livin g Live Births 1 1 Date Outcome GA Total Labor Labor/2nd/3rd Weight Sex Type Anes PTL Savannah A1 A5 Name Clin C-Sec tion Comments:labor dystoci a Last Filed Vital Signs Vital Sign Reading Time Taken Comments Blood Pressure 108/64 09/11/2023 5:40 PM CDT Pulse 88 09/11/2023 5:40 PM CDT Temperature 36.3 C (97.4 F) 09/11/2023 3:22 PM CDT Respiratory Rate 16 09/11/2023 5:40 PM CDT Oxygen Saturation 99% 09/11/2023 5:40 PM CDT Inhaled Oxygen Concentration - - Weight 77.6 kg (171 lb) 09/11/2023 3:22 PM CDT Height 167.6 cm (5' 6) 09/11/2023 3:22 PM CDT Body Mass Index 27.6 09/11/2023 3:22 PM CDT Plan of Treatment Health Maintenance Due Date Last Done Comments HIV for age 15-65 1997 Hepatitis C screening for age 18-79 2000 Pneumococcal series for age 6-49 (1 of 2 - PCV) 2001 Tetanus booster 02/28/2018 02/29/2008 (Comp leted outside of [facility]), 07/12/1996 BMI (ht and wt on same day) for age 18+ 06/14/2018 06/14/2017 Depression screening for age 12+ 06/14/2018 06/15/19 18 COVID-19 vaccine series ( season) 2023 04/28/2020, 03/31/2020 Influenza for age 9-49 10/30/2023 Pap test for age 21-65 06/29/2024 06/29/2021, 2021 Tdap Completed 02/29/2008 (Comp leted outside of [facility]) Procedures Procedure Name Priority Date/Time Associated Diagnosis Comments HPV HIGH RISK Routine 06/29/2021 10:46 AM CDT from Last 3 Months or Most Recently Relevant to Health Maintenance Results * (ABNORMAL) HPV HIGH RISK (06/29/2021 10:46 AM CDT) TYPE 16 Negative Negative 07/01/2021 12:03 PM CDT [facility] TYPE 18 Negative Negative 07/01/2021 12:03 PM CDT [facility] OTHER HIGH RISK TYPES Positive(A) Negative 07/01/2021 12:03 PM CDT [facility] Other (Cervical/Vagina l) 06/29/2021 10:46 AM CDT 06/30/2021 7:39 AM CDT Narrative [facility] - 07/01/2021 12:03 PM CDT Specimen is positive for the DNA of any one of, or combination of, the following high risk HPV types: 31, 33, 35, 39, 45, 51, 52, 56, 58, 59, 66, 68. HPV types 16 and 18 DNA were undetectable or below the pre-set threshold. Methodology: Mimi Kimberly 4800 HPV Test us Ibrahima Sanches MD MICROBIOLOGY Final Resul t [facility] [address] [place] [address], from Last 3 Months or Most Recently Relevant to Health Maintenance Insurance [employer] [id number] [place] [id number] Care Teams J2Ee Architect Relationship Specialty Start Date End Date Ibrahima Sanches MD [address] [address] PCP - General Family Practice 09/11/23
--- OUTSIDE RECORDS SUMMARY | 2024-04-12 17:45 | XMS_ITS | Encounter Summary ---
Author Organization [facility] Address [address] [facility] [place] [address] Care Team Providers Care Eligibility Examiner Name Role Phone Manuel Sanches MD Primary Care Provider No Ref-Primary, Physician Unavailable [phone] Aurelia Farah MD Unavailable Sherice Walter RN Unavailable [phone] Aurelia Farah MD Unavailable Encounter Details Date Type Department Care Team (Late st Contact Info) Description 10/08/2021 MyC Medical Advice [facility] [address] [facility] [place] [address] Aurelia Farah MD [address] [place] [address] [address] [place], [place] [address] Social History Tobacco Use Types Packs/Day Years [...] by your partner or ex-partner? 

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
--- OUTSIDE RECORDS SUMMARY | 2024-04-12 17:45 | XMS_ITS | Encounter Summary ---
Author Organization [facility] Address [address] [facility] 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 Gender Identity Not on file Sexual Orientation Not on file documented as of this encounter Plan of Treatment Not on file documented as of this encounter Visit Diagnoses Not on filedocumented in this encounter Care Teams International Trade Compliance Manager Relationship Specialty Start Date End Date Manuel Sanches MD PCP - General Family Medicine 08/19/21 No Ref-Primary, Physician 08/19/21 Aurelia Farah MD [address] [place] [id number] Gynecologic Oncology 08/19/21 Sherice Walter, RN Specialty Data Solutions Architect Gynecologic Oncology 09/12/21 Aurelia Farah MD [address] [place] [id number] Assigned Cancer Care Provider 09/19/21 05/12/23 documented as of this encounter
--- OUTSIDE RECORDS SUMMARY | 2024-04-12 17:45 | XMS_ITS | Encounter Summary ---
Author Organization [facility] Address [address] [place] [address] Care Team Providers Care Snagger Name Role Phone Andrés Collazo MD Primary Care Provider Reason for Visit * Reason Comments Phq9 Follow Up Encounter Details Date Type Department Care Team (Late st Contact Info) Description 10/20/2022 Nurse Triage [facility] Medicine [address] [facility] [place] [address] Andrés Collazo MD [address] [place] [address] Phq9 Follow Up Social History [...] to return call to Nurse Line at [phone]. +PHQ-9 with a score of 17 dated 10/20/22. No scheduled appointment. * Markus Cortez RN - 10/20/2022 12:00 PM CDT Call placed to patient, left message to call back, call back number provided. documented in this encounter Plan of Treatment Not on file documented as of this encounter Visit Diagnoses Not on filedocumented in this encounter Care Teams Snagger Relationship Specialty Start Date End Date Andrés Collazo MD [address] [place] [address] PCP - General Family Practice 08/12/22 documented as of this encounter
[2024-04-12 17:46] VITALS: BP 121/74; PULSE 120; RESP 18; TEMP 37.1; O2SAT 99; BMI 27.4
--- OUTSIDE RECORDS SUMMARY | 2024-04-12 17:46 | XMS_ITS | Encounter Summary ---
Author Organization [facility] Address [address] [place] [address] Phone Care Team Providers Care Mobile Practice Lead Name Role Phone Asya Cee MD Primary Care Provider [phone] Reason for Visit * Reason Comments Dental Pain Encounter Details Date Type Department Care Team (Late st Contact Info) Description 03/24/2024 3:17 PM DIGITAL MARKETING ANALYST - 03/24/2024 3:45 PM DIGITAL MARKETING [place] [address] Mari Mendez, PAAixaC [address] [place] [id number] Pain, dental (Primary Dx) Discharge Disposition: Home and/or Self Care Social History Tobacco Use Types Packs/Day Years Used Date Smoking Tobacco: Former Cigarettes 0.5 5 1 - 12/28/2006 Comments:1-2 cigs a day Alcohol Use Standard Drinks/Week Comments Yes 0 (1 standard drink = 0.6 oz pur e alcohol) Occasional Comments No Sex and Gender Information Value Date Recorded Sex Assigned at Not on file Legal Sex Female 4:39 PM DIGITAL MARKETING ANALYST Gender Identity Not on file Sexual Orientation Not on file 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 Not on file Not on file Not on file documented as of this encounter Last Filed Vital Signs Vital Sign Reading Time Taken Comments Blood Pressure 118/84 03/24/2024 3:22 PM DIGITAL MARKETING ANALYST Pulse 112 03/24/2024 3:22 PM DIGITAL MARKETING ANALYST Temperature 37 C (98.6 F) 03/24/2024 3:22 PM DIGITAL MARKETING ANALYST Respiratory Rate 18 03/24/2024 3:22 PM DIGITAL MARKETING ANALYST Oxygen Saturation 99% 03/24/2024 3:22 PM DIGITAL MARKETING ANALYST Inhaled Oxygen Concentration - - Weight 78 kg (172 lb) 03/24/2024 3:22 PM DIGITAL MARKETING ANALYST Height - - Body Mass Index - - documented in this encounter Discharge Instructions * Discharge Instructions* Mari Mendez PA-C - 03/24/2024 3:35 PM DIGITAL MARKETING ANALYST Clindamycin as directed, finish to completion [place] every 4-6 hours as needed for more severe pain. This can cause drowsiness and be constipating. Take a stool softener If pain not severe you can just use tylenol or ibuprofen (norco does have 325 mg of tylenol in eachtablet, limit all tylenol or acetaminophen to less than 4000 mg in 24 hours) Keep your appointment with dentist as scheduled, I would try to call Tuesday and let them know your pain has worsened Return to the ER with fevers, drooling, muffled voice, difficulty breathing or swallowing, voice changes, or with any other concerns TAL MARKETING ANALYST TAL MARKETING ANALYST documented in this encounter Medications at Time of Discharge ibuprofen (Motrin) 800 MG tablet Take 1 Tablet by mouth three times a day as needed for Pain. Administer with food. 40 Tablet 03/24/2024 Probiotic, Lactobacillus, capsule Take 1 Capsule by mouth one time a day. 10 Capsule 03/24/2024 ACETAMINOPHEN 325 MG OR TABS Take one tablet every four hours as needed 100 0 12/25/2006 clindamycin (Cleocin) 300 MG capsuleIndicatio ns:Infection Take 1 Capsule by mouth four times a day for 7 days. Indications: Infection 28 Capsule 03/24/2024 HYDROcodone-acet aminophen ([place]) 5-325 MG oral tablet Take 1 Tablet by mouth every six hours as needed for Pain for up to 3 days. Limit acetaminophen to 4000 mg per day from all sources. 10 Tablet 03/24/2024 documented as of this encounter Ordered Prescriptions Prescription Sig Dispense Quantity Refills Last Filled Start Date End Date Probiotic, Lactobacillus, capsule Take 1 Capsule by mouth one time a day. 10 Capsule 03/24/2024 ibuprofen (Motrin) 800 MG tablet Take 1 Tablet by mouth three times a day as needed for Pain. Administer with food. 40 Tablet 03/24/2024 HYDROcodone-aceta minophen ([place]) 5-325 MG oral tablet Take 1 Tablet by mouth every six hours as needed for Pain for up to 3 days. Limit acetaminophen to 4000 mg per day from all sources. 10 Tablet 03/24/2024 03/27/19 clindamycin (Cleocin) 300 MG capsuleIndication s:Infection Take 1 Capsule by mouth four times a day for 7 days. Indications: Infection 28 Capsule 03/24/2024 03/31/19 documented in this encounter Discharge Disposition Disposition Code Departure Means Destination Comment s Home and/or Self Mcfp documented in this encounter ED Notes * Mari Mendez PA-C - 03/24/2024 3:45 PM CST Images from the original note were not included. Patient: Cecily Phillips Means of Arrival: Car Chief Complaint: Dental Pain History of Present Illness: HPI Cecily Phillips is a(n) 43 year old female who presents to the ER for evaluation of right lower dental pain. Patient says one of her right lower molars had a filling. The filling fell out about 1-2 months ago. Says the tooth initially was not painful so she did schedule a dental appointment which is coming up in 2 weeks. The past 2 days she has had increased pain to the area, hurts to chew. She is concerned there might be an infection now. She denies fevers, chills, facial swelling, trismus,drooling, voice changes. Review of Systems Constitutional: Negative for chills and fever. HENT: Positive for dental problem. Negative for drooling, facial swelling, trouble swallowing and voice change. Respiratory: Negative for shortness of breath. Musculoskeletal: Negative for neck pain and neck stiffness. Allergic/Immunologic: Negative for immunocompromised state. All other systems reviewed and are negative. 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 Anterior cervical conization: Positive for in situ squamous carcinoma and mild-moderate dysplasia. Dysplasia of cervix (uteri) 10/18/2003 S/P LEEP on 02/18/03 Malignant neoplasm of rectum (HCC) 2006 Past Surgical History: Past Surgical History: Procedure Laterality Date DELIVERY ONLY 12/23/2002 , Low Cervical COLONOSCOPY 10/11/2006 COLPOSCOPY,BX CERVIX/ENDOCERV CURR 01/04/05 results- negative ECC COLPOSCOPY,LOOP ELECTRD CERVIX EXCIS 02/12/2003 LEEP/Colposcopy Carcinoma in Situ ECHO HEART XTHORACIC,COMPLETE 06/22/2002 Essentially normal EXAM OF VAGINA,COLPOSCOPY 09/30/2003 Also, 09/24/02, 07/09/02, for severe dysplasia REMOVAL OF TUNNEL CV ACCESS DEVICE, WITH PORT/PUMP 07/05/2008 SIGMOIDOSCOPE W/SUBMUC INJ 2006 SIGMOIDOSCOPY W/ENDOSCOPIC US EXAM 2006 Family History: Family History Problem Relation Name Age of Onset Hypertension Father Narayan Diabetes Maternal Grandmother Phan Cancer Maternal Grandmother Phan Breast age 72, Pancreatic age 82 dec Cancer Paternal Grandmother Paula malignant colon polyps GE 60's, living age 79 GI Disease Maternal Aunt Morelia Colon Polyps - Precancerous age 58 Cancer Paternal Grandfather Pepe Pancreatic age 69 & Social History: Social History Tobacco Use Smoking status: Former Current packs/day: 0.00 Average packs/day: 0.5 packs/day for 5.0 years (2.5 ttl pk-yrs) Types: Cigarettes Start date: 12/28/2001 Quit date: 12/28/2006 Years since quittin.2 Tobacco comments: 1-2 cigs a day Substance Use Topics Alcohol use: Yes Comment: Occasional Exam: Initial Vitals Most Recent Vitals Temp: 37 ??C (98.6 ??F) (03/24/24 1522) Temp: 37 ??C (98.6 ??F) (03/24/24 1522) Pulse: 112 (03/24/24 1522) Pulse: 112 (03/24/24 1522) Resp: 18 (03/24/24 1522) Resp: 18 (03/24/24 1522) BP: 118/84 (03/24/24 1522) BP: 118/84 (03/24/24 1522) SpO2: 99 % (03/24/24 1522) SpO2: 99 % (03/24/24 1522) Weight: 78 kg (172 lb) (03/24/24 1522) Physical Exam Vitals and nursing note reviewed. Constitutional: General: She is not in acute distress. Appearance: Normal appearance. She is normal weight. She is not ill-appearing or toxic-appearing. HENT: Head: Normocephalic and atraumatic. Mouth/Throat: Mouth: Mucous membranes are moist. Pharynx: Oropharynx is clear. Comments: Has some previously extracted teeth, remaining right lower molar is broken with decay. Very tender. Has some inflammation around the adjacent gingiva. Do not appreciate any fluctuance or induration. Voice normal. Sublingual space soft. No facial swelling or erythema. Cardiovascular: Rate and Rhythm: Regular rhythm. Tachycardia present. Pulmonary: Effort: Pulmonary effort is normal. No respiratory distress. Musculoskeletal: Cervical back: Normal range of motion and neck supple. No rigidity. Lymphadenopathy: Cervical: No cervical adenopathy. Neurological: Mental Status: She is alert and oriented to person, place, and time. Lab Results: No results found for this visit on 03/24/24. Imaging Results: Imaging Results None Emergency Department Course: History and physical completed. Mild tachycardia, other vitals stable.Presenting with right lower dental pain. On exam no obvious abscess that would be amenable to draining at this time. No evidence of a deep space infection like ludwigs. The tooth is broken with decay. Has inflammation to the gingiva adjacent. I suspect she has a developing dental infection. She hasintolerance to penicillins by her report so will place on clindamycin. I did prescribe a short course of norco for pain, no refills from ER. Should also take ibuprofen, clove oil, or oragel. Call dentist on Tuesday to see if she can get in sooner than 2 weeks. Return to the ER with trismus, drooling, muffled voice, difficulty breathing or swallowing, or any other concerns. Medications - No data to display Procedures: none Medical Decision Making Risk OTC drugs. Prescription drug management. Assessment: Pain, dental (Primary) Plan: Discharge Prescriptions Medication Sig Dispense Start Date End Date Auth. Provider clindamycin (Cleocin) 300 MG capsule Take 1 Capsule by mouth four times a day for 7 days. Indications: Infection 28 Capsule 03/24/2024 03/31/2024 Mari Mendez PA-C ibuprofen (Motrin) 800 MG tablet Take 1 Tablet by mouth three times a day as needed for Pain. Administer with food. 40 Tablet 03/24/2024 -- Mari Mendez PA-C Probiotic, Lactobacillus, capsule Take 1 Capsule by mouth one time a day. 10 Capsule 03/24/2024 -- Mari Mendez PA-C HYDROcodone-acetaminophen ([place]) 5-325 MG oral tablet Take 1 Tablet by mouth every six hours as needed for Pain for up to 3 days. Limit acetaminophen to 4000 mg per day from all sources. 10 Tablet 03/24/2024 03/27/2024 Mari Mendez PA-C Clindamycin as directed Ibuprofen prn pain [place] for severe pain, drowsiness and constipating effects discussed Call dentist on Tuesday to try to get an earlier appointment Return to the ER with any new or worsening symptoms Disposition: ED Disposition ED Disposition Discharge Condition Stable Comment Remember, your care today was on an emergency basis and treatment was not intended to be a substitute for ongoing medical care from your primary care physician. If you came to the Emergency Room for treatment of a wound, sore, or cut of some sort AND/OR if youhave had an injection, an IV treatment or blood drawn, please watch that area carefully for the following signs of infection and seek professional medical treatment immediately: Redness, pain, swelling, or drainage at the site, or you d evelop a fever greater than 100 degrees Fahrenheit measured orally. If you had a lab, xray, or other tests while in the ED please review with your primary doctor. Discharge Instructions Clindamycin as directed, finish to completion [place] every 4-6 hours as needed for more severe pain. This can cause drowsiness and be constipating. Take a stool softener If pain not severe you can just use tylenol or ibuprofen (norco does have 325 mg of tylenol in each tablet, limit all tylenol or acetaminophen to less than 4000 mg in 24 hours) Keep your appointment with dentist as scheduled, I would try to call Tuesday and let them know your pain has worsened Return to the ER with fevers, drooling, muffled voice, difficulty breathing or swallowing, voice changes, or with any other concerns Mari Mendez PA-C 03/24/24 1700 TAL MARKETING ANALYST * Alisa Carnes, MYRNA - 03/24/2024 3:20 PM CST Pt arrived due to dental pain right lower jaw -- pulsating pain for two days -- dentist appointmentin two weeks -- TAL MARKETING ANALYST documented in this encounter Plan of Treatment Not on file documented as of this encounter Visit Diagnoses Diagnosis Pain, dental- Primary Unspecified disorder of the teeth and supporting structures documented in this encounter Care Teams Mobile Practice Lead Relationship Specialty [place] [id number] [address] PCP - General 05/01/08 documented as of this encounter
--- OUTSIDE RECORDS SUMMARY | 2024-04-12 17:46 | XMS_ITS | Clinical Summary ---
Author Organization [facility] Address [address] [place] [address] Phone Care Team Providers Care Script Supervisor Name Role Phone Asya Cee MD Primary Care Provider [phone]- [phone] Allergies Active Allergy Reactions Criticality Noted Date Comments Lactose Intolerance (Gi) Nausea Only 12/06/2006 Medications ACETAMINOPHEN 325 MG OR TABS Take one tablet every four hours as needed 100 0 7 Active ibuprofen (Motrin) 800 MG tablet Take 1 Tablet by mouth three times a day as needed for Pain. Administer with food. 40 Tablet 5 Active Probiotic, Lactobacillus, capsule Take 1 Capsule by mouth one time a day. 10 Capsule 5 Active clindamycin (Cleocin) 300 MG capsuleIndicat ions:Infection Take 1 Capsule by mouth four times a day for 7 days. Indications: Infection 28 Capsule 5 025 HYDROcodone-ac etaminophen ([place]) 5-325 MG oral tablet Take 1 Tablet by mouth every six hours as needed for Pain for up to 3 days. Limit acetaminophen to 4000 mg per day from all sources. 10 Tablet 5 025 Active Problems Problem Noted Date Diagnosed Date Malignant neoplasm of rectum 10/17/2006 Overview (03/30/2007): T3N0, NSABP study RO4 5-FU plus Oxaliplatin with concurrent radiation Tissue MSI-Low ( 1 of 10 markers) & IHC - presence of normal hMLH1, hMSH2, hMSH6 and PMS2 protein expression; very low likelihood an inherited colon cancer syndrome due to defective DNA mismatch repair Encounters Date Type Department Care Team Description 03/24/2024 3:17 PM CORPORATE PLANNING MANAGER - 03/24/2024 3:45 PM CORPORATE PLANNING MANAGER Emergency [address] [address] Mari Mendez PA-C Pain, dental (Primary Dx) Discharge Disposition: Home and/or Self Care 03/24/2024 Travel from Last 3 Months Immunizations Name Administration Dates Next Due DPT <7 years (Historic) 10/25/1988,11/13,10/15/1984,05/06/1983,12/30/18 83 MMR 05/30/1995,11/13/1984 OPV (Historic Use Only) 10/25/1988,11/13/1984,,1982 Surgical History Surgery Date Site/Laterality Comments COLPOSCOPY,LOOP ELECTRD CERV IX EXCIS 02/12/2003 LEEP/Colposcopy Carcinoma in Situ EXAM OF VAGINA,COLPOSCOPY 09/30/2003 Also, 09/24/02, 07/09/02, for severe dysplasia ECHO HEART XTHORACIC,COMPLETE 06/22/2002 Essentially normal COLPOSCOPY,BX CERVIX/ENDOCER V CURR 01/04/05 results- negative ECC SIGMOIDOSCOPY W/ENDOSCOPIC U S EXAM 2006 SIGMOIDOSCOPE W/SUBMUC INJ 2006 DELIVERY ONLY 12/23/2002 , Low Cervical COLONOSCOPY 10/11/2006 REMOVAL OF TUNNEL CV ACCESS DEVICE, WITH PORT/PUMP 07/05/2008 Medical History Medical History Date Comments Dysplasia of cervix (uteri) 10/18/2003 S/P LEEP on 02/18/03 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 Anterior cervical conization: Positive for in situ squamous carcinoma and mild-moderate dysplasia. Malignant neoplasm of rectum (HCC) 2006 Family History Medical History Relation Comments Hypertension Father GI Disease Maternal Aunt Colon Polyps - P recancerous age 58 Cancer Maternal Grandmother Breast age 72, Pancreatic age 82 dec Diabetes Maternal Grandmother Cancer Paternal Grandfather Pancreatic age 69 & Cancer Paternal Grandmother malignant c olon polyps GE 60's, living age 79 Relation Status Comments Brother 1 Alive (Age Talon) Brother 2 Alive (Age Ze) Daughter 1 Alive (Age Medelia) Daughter 2 Alive (Age Zaynab) Father Alive (Age Narayan) Maternal Aunt Maternal Grandfather (Age 67) Maternal Grandmother (Age [phone]) Pa ncreatic [place] 10[birth year]16 Mother Alive (Age Sophie) Paternal Grandfather (Age 69) Pancreati c [place] Paternal Grandmother Alive age 79 Sister Alive (Age Moraima Samaniego) Social History Tobacco Use Types Packs/Day Years Used Date Smoking Tobacco: Former Cigarettes 0.5 5 1 - 12/28/2006 Comments:1-2 cigs a day Alcohol Use Standard Drinks/Week Comments Yes 0 (1 standard drink = 0.6 oz pur e alcohol) Occasional Comments No Sex and Gender Information Value Date Recorded Sex Assigned at Not on file Legal Sex Female 4:39 PM CORPORATE PLANNING MANAGER Gender Identity Not on file Sexual Orientation Not on file 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 Bharat crawford M.D. Delivery Location:[facility] Comments:Cephalopelvic disproportion 004 31w 1d F LV/ VAG Living 5 7 Comments 11/05/2003-Early onset of deli very. Last Filed Vital Signs Vital Sign Reading Time Taken Comments Blood Pressure 118/84 03/24/2024 3:22 PM CORPORATE PLANNING MANAGER Pulse 112 03/24/2024 3:22 PM CORPORATE PLANNING MANAGER Temperature 37 C (98.6 F) 03/24/2024 3:22 PM CORPORATE PLANNING MANAGER Respiratory Rate 18 03/24/2024 3:22 PM CORPORATE PLANNING MANAGER Oxygen Saturation 99% 03/24/2024 3:22 PM CORPORATE PLANNING MANAGER Inhaled Oxygen Concentration - - Weight 78 kg (172 lb) 03/24/2024 3:22 PM CORPORATE PLANNING MANAGER Height 166 cm (5' 5.35) 07/05/2008 7:06 AM CDT Body Mass Index - - Plan of Treatment Health Maintenance Due Date Last Done Comments Cervical Cancer Screening 1982 Last pap w/ HPV Testing 1982 Last pap w/o HPV Testing 1982 MAMMO,SCREEN 1982 Hepatitis B Vaccine (Standing Order) (1 of 3 - 19+ 3-dose series) 2001 PERTUSSIS (Standing Order) 10/12/200110/25, 11/13/1984, 10/15/1984, Additional history exists Pneumococcal/PCV20 Vaccine: Pediatrics (2-5 yrs) and At-Risk Patients (6-49 yrs) (Standing Order) (1 of 2 - PCV) 2001 TETANUS (Standing Order) 2001 989, 11/13/1984, 10/15/1984, Additional history exists COVID-19 Vaccine ( - 2023-) 10/30/2023 Influenza Vaccine Seasonal (Standing Order) (#1) 2023 HPV Vaccine (Standing Order) Aged Out No longer eligible based on patient's age to complete this topic Insurance [employer] Advance Directives For more information, please contact: [phone] * No Code Status (Latest Code Status on File) Date Activated Date Inactivated Comments 12/06/2003 8:34 AM 12/06/2003 8:34 AM Care Teams Script Supervisor Relationship Specialty [place] [id number] [address] PCP - General 05/01/08
--- OUTSIDE RECORDS SUMMARY | 2024-04-12 17:46 | XMS_ITS | Encounter Summary ---
Author Organization [facility] Address [address] [place] [id number] Phone Care Team Providers Care Double End Tenoner Operator Name Role Phone Asya Cee MD Primary Care Provider [phone]- [phone] Encounter Details Date Type Department Care Team (Latest Contact Info) Description 03/24/2024 Travel Social History Tobacco Use Types Packs/Day Years Used Date Smoking Tobacco: Former Cigarettes 0.5 5 1 - 12/28/2006 Comments:1-2 cigs a day Alcohol Use Standard Drinks/Week Comments Yes 0 (1 standard drink = 0.6 oz pur e alcohol) Occasional Comments No Sex and Gender Information Value Date Recorded Sex Assigned at Not on file Legal Sex Female 4:39 PM NEON SIGN SERVICER Gender Identity Not on file Sexual Orientation Not on file 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
[2024-04-12 18:30] VITALS: RESP 18
--- NOTE | 2024-04-12 18:32 | ED.GENADULT ---
HPI - General Adult General Time Seen by Provider: 18:32 Date Seen: 04/12/24 Chief complaint: Unspecified Complaint, Adult Stated complaint: Cough, headache, joints hurts, hard time breathing Time Seen by Provider: 04/12/24 18:08 Source: patient and RN notes reviewed Mode of arrival: ambulatory Limitations: no limitations History of Present Illness HPI narrative: This 43-year-old female is coming in with illness that started abruptly at 4:00 p.m. yesterday. She is achy all over, her knees hurt, her hips hurt, she states her kidneys hurt. She has some insomnia with this and definitely increased fatigue. She states it feels like her kidneys could explode. She has had no nausea vomiting or unchanged stools. She did a home COVID test today which was negative. She is coughing with semi productive changes, there is pain with coughing. She had colon cancer at age 25, had a partial colon removal and does subsequently have chronic diarrhea. She has been using ibuprofen, last dose 2.5 hours ago. She states she feels miserable. Related Data Previous Rx's ?Medication ?Instructions ?Recorded nirmatrelvir 300 mg (150 mg See Rx Instructions PO .COMPLEX 04/12/24 x2)-ritonavir 100 mg tablet,dose #30 ea pack (Paxlovid) Allergies Allergy/AdvReac Type Severity Reaction Status Date / Time amoxicillin (From Augmentin) Allergy Unknown N/V Verified 04/12/24 17:53 clavulanic acid (From Allergy Unknown N/V Verified 04/12/24 17:53 Augmentin) codeine Allergy Unknown N/V Verified 04/12/24 17:53 lactose Allergy Unknown Verified 04/12/24 17:53 Review of Systems Status of ROS: Reports: 6 or more systems reviewed and unremarkable except as noted in History and below [facility] Medical History Left foot pain ?M79.672 - Pain in left foot (ICD-10) Carcinoma in situ of cervix (2003) ?D06.9 - Carcinoma in situ of cervix, unspecified (ICD-10) Adhesive capsulitis ?M75.00 - Adhesive capsulitis of unspecified shoulder (ICD-10) Surgical History Status post cone biopsy of cervix ?Z98.890 - Other specified postprocedural states (ICD-10) Status post colposcopy (08/10/21) ?Z98.890 - Other specified postprocedural states (ICD-10) History of loop electrosurgical excision procedure (LEEP) of cervix (2003) ?Z98.890 - Other specified postprocedural states (ICD-10) History of abdominal supracervical subtotal hysterectomy (2005) ?Z90.711 - Acquired absence of uterus with remaining cervical stump (ICD-10) Status post partial colectomy ?Z90.49 - Acquired absence of other specified parts of digestive tract (ICD-10) Status post cholecystectomy ?Z90.49 - Acquired absence of other specified parts of digestive tract (ICD-10) Family History Other Breast cancer Diabetes Rheumatoid arteritis Social History Narrative: Former smoker Quit 2017 In the past 12 months, utilities in danger of being shut off: no In past 12 months, lack of transportation kept you from medical appts, meetings, work, or getting things needed for daily living: no In the past 12 mos, have been you worried that your food would run out before you had money to buy more?: never true In the past 12 mos, the food you bought just didn't last and you didn't have money to buy more?: never true Smoking Status: Former smoker Do you use any of these nicotine containing products: None How often do you have a drink containing alcohol: never How often do you have six or more drinks on one occasion: Never AUDIT-C Alcohol total score: 0 Non-prescribed substance use: denies use How often does anyone, including family, friends and others, physically hurt you: never How often does anyone, including family, friends and others, insult or talk down to you: never How often does anyone, including family, friends and others, threaten you with harm: never How often does anyone, including family, friends and others, scream or curse at you: never Exam Const: Vital Signs, click to edit/add: Vital Signs - 24 hr 04/12/24 17:46 04/12/24 18:30 Temperature 98.7 F Pulse Rate [Right Pulse Oximeter] 120 H Respiratory Rate 18 Respiratory Rate [ Lower Back] 18 Blood Pressure [Ri ght Upper Arm] 121/74 Pulse Oximetry 99 Oxygen Delivery Me thod Room Air Patient is alert, interactive, no apparent stress. Sclera slightly injected but no drainage, no periorbital swelling or erythema. Conjugate gaze, pupils equal round. Symmetrical facial function, speech is normal, oropharynx no mucosa, no exudates erythema. Neck is supple, no adenopathy. Lungs are clear, no wheezing or crackles, no tachypnea, no accessory muscle use. CV fast irregular, no murmur. Skin visualized without rash. Documenting provider has reviewed patient's vital signs: yes Course Course ED Course: Will wait for her triple viral swab, should be soon. Will consider CBC and chest x-ray if the swab is negative. Did review with patient that the home COVID is antigen testing in the PCR that we have his more sensitive. Reevaluation(s) Time of Reevaluation #1: 18:47 Reevaluation #1: Patient's testing shows COVID, she is informed of this. She would like to go on Paxlovid. Discuss risks benefits and side effects. She is well within treatment guidelines, will send this in for her. Discussed symptomatic treatment with Tylenol and ibuprofen, plenty of fluids. Will give her handouts regarding this illness. She states this will be about the 6th time she has had COVID. We did review that some people just seem to be more susceptible. Vital Signs Vital signs: Initial Vital Signs Temperature 98.7 F 04/12/24 17:46 Temperature Source Temporal Artery Scan 04/12/24 17:46 Pulse Rate 120 H 04/12/24 17:46 Pulse Rhythm Regular 04/12/24 17:46 Respiratory Rate 18 04/12/24 17:46 Blood Pressure 121/74 04/12/24 17:46 Blood Pressure Mean 89 04/12/24 17:46 Blood Pressure Position Sitting 04/12/24 17:46 Pulse Oximetry 99 04/12/24 17:46 Oxygen Delivery Method Room Air 04/12/24 17:46 Vital Signs Temperature 98.7 F 04/12/24 17:46 Pulse Rate 120 H 04/12/24 17:46 Respiratory Rate 18 04/12/24 17:46 Blood Pressure 121/74 04/12/24 17:46 Pulse Oximetry 99 04/12/24 17:46 Oxygen Delivery Method Room Air 04/12/24 17:46 Temperature 98.7 F 04/12/24 17:46 Pulse Rate 120 H 04/12/24 17:46 Respiratory Rate 18 04/12/24 18:30 Blood Pressure 121/74 04/12/24 17:46 Pulse Oximetry 99 04/12/24 17:46 Oxygen Delivery Method Room Air 04/12/24 17:46 Medical Decision Making Lab Data Labs: Lab Results 04/12/24 Range/Units 17:55 SARS-CoV-2 (PCR) POSITIVE SARS-CoV-2 A (Negative) Influenza Type A (PCR) Negative PCR FLU A (Negative) Influenza Type B (PCR) Negative PCR FLU B (Negative) RSV (PCR) Negative PCR RSV (Negative) Discharge Plan Discharge Clinical Impression: COVID-19 Patient Disposition: Home, Self-Care Condition: Stable Instructions: COVID-19 (Coronavirus Disease 2019) (ED) Additional Instructions: Start Paxlovid and take as prescribed. Can use Tylenol and ibuprofen, cough cold symptoms [id number] following package a bottle instructions. If you are not improving over the next week, have concerns for worsening, please seek re-evaluation. If you do get the metallic taste from the medicine, sucking on hard candy and frequent small sips of fluids do help relieve this. This will go away once you are done with the medicine. Need to quarantine per CDC guidelines for COVID. Prescriptions: New Paxlovid 300 mg (150 mg x 2)-100 mg tablets,dose pack See Rx Instructions .ROUTE .COMPLEX Qty: 30 0RF Rx Instructions: take TWO 150 mg tablets of nirmatrelvir with ONE 100 mg tablet of ritonavir twice daily for 5 days Follow Up/Referrals: Siva Escobar MD [Primary Care Provider] - Stand Alone Forms: MyHealth Info Instructions
[2024-04-12 18:39] LABS: PCR FLU A Negative PCR FLU A (Negative); PCR FLU B Negative PCR FLU B (Negative); PCR RSV Negative PCR RSV (Negative); SARS PCR* POSITIVE SARS-CoV-2 (Negative)
--- OUTSIDE RECORDS SUMMARY | 2024-04-12 18:59 | XMS_ITS | Clinical Summary ---
Author Organization [facility] Address [place], [place] [address] Care Team Providers Care Central Office Trouble Shooter Name Role Phone Ibrahima Sanches MD Primary Care Provider [phone] Allergies Active Allergy Reactions Criticality Noted Date [...] 2003. Presented with rectal bleeding. Treated in [place]. Immunizations Name Administration Dates Next Due Td [...] booster 02/28/2018 02/29/2008 (Comp leted outside of [facility]), 07/12/1996 BMI (ht and wt on same day) for age 18+ 06/14/2018 06/14/2017 Depression screening for age 12+ 06/14/2018 06/15/19 18 COVID-19 vaccine series ( season) 2023 04/28/2020, 03/31/2020 Influenza for age 9-49 10/30/2023 Pap test for age 21-65 06/29/2024 06/29/2021, 2021 Tdap Completed 02/29/2008 (Comp leted outside of [facility]) Procedures Procedure Name Priority Date/Time Associated Diagnosis Comments HPV HIGH RISK Routine 06/29/2021 10:46 AM CDT from Last 3 Months or Most Recently Relevant to Health Maintenance Results * (ABNORMAL) HPV HIGH RISK (06/29/2021 10:46 AM CDT) TYPE 16 Negative Negative 07/01/2021 12:03 PM CDT [facility] TYPE 18 Negative Negative 07/01/2021 12:03 PM CDT [facility] OTHER HIGH RISK TYPES Positive(A) Negative 07/01/2021 12:03 PM CDT [facility] Other (Cervical/Vagina l) 06/29/2021 10:46 AM CDT 06/30/2021 7:39 AM CDT Narrative [facility] - 07/01/2021 12:03 PM CDT Specimen [...] Ibrahima Sanches MD MICROBIOLOGY Final Resul t [facility] [address] [place] [address], from Last 3 Months or Most Recently Relevant to Health Maintenance Insurance [employer] [address] [place] [id number] Care Teams Central Office Trouble Shooter Relationship Specialty Start Date End Date Ibrahima Sanches MD [address] [address] PCP - General Family Practice 09/11/23
--- OUTSIDE RECORDS SUMMARY | 2024-04-12 18:59 | XMS_ITS | Encounter Summary ---
Author Organization [facility] Address [address] [facility] [place] [address] Care Team Providers Care Grinder Mill Operator Name Role Phone Manuel Sanches MD Primary Care Provider [phone] No Ref-Primary, Physician Unavailable Aurelia Farah MD Unavailable Sherice Watler RN Unavailable Aurelia Farah MD Unavailable [phone] Encounter Details Date Type Department Care Team (Late st Contact Info) Description 10/08/2021 MyC Medical Advice [facility] [address] [place] [address] [facility] [place] [address] Aurelia Farah MD [address] [place] [address] [address] [place], [place] [id number] Social History Tobacco Use Types Packs/Day Years [...] on file 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
--- OUTSIDE RECORDS SUMMARY | 2024-04-12 18:59 | XMS_ITS | Encounter Summary ---
Author Organization [facility] Address [address] [facility] 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 Gender Identity Not on file Sexual Orientation Not on file documented as of this encounter Plan of Treatment Not on file documented as of this encounter Visit Diagnoses Not on filedocumented in this encounter Care Teams Cloud Consultant Relationship Specialty Start Date End Date Manuel Sanches MD PCP - General Family Medicine 08/19/21 No Ref-Primary, Physician 08/19/21 Aurelia Farah MD [address] [place] [id number] Gynecologic Oncology 08/19/21 Sherice aWlter, RN Specialty Director Television Gynecologic Oncology 09/12/21 Aurelia Farah MD [address] [place] [id number] Assigned Cancer Care Provider 09/19/21 05/12/23 documented as of this encounter
--- OUTSIDE RECORDS SUMMARY | 2024-04-12 19:00 | XMS_ITS | Clinical Summary ---
Author Organization [facility] Address [address] [place] [address] Phone Care Team Providers Care Supervisor Brake Repair Name Role Phone Asya eCe MD Primary Care Provider [phone] Allergies Active Allergy Reactions Criticality Noted Date [...] Infection 28 Capsule 5 025 HYDROcodone-ac etaminophen ([place]) 5-325 MG oral tablet Take 1 Tablet [...] Department Care Team Description 03/24/2024 3:17 PM AUCTIONEER ART - 03/24/2024 3:45 PM AUCTIONEER ART Emergency [address] [address] Mari Mendez PA-C Pain, dental (Primary Dx) [...] on file Legal Sex Female 4:39 PM AUCTIONEER ART Gender Identity Not on file Sexual Orientation Not on file 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 Bharat crawford M.D. Delivery Location:[facility] Comments:Cephalopelvic disproportion 004 31w 1d F LV/ VAG Living 5 7 Comments 11/05/2003-Early onset of deli very. Last Filed Vital Signs Vital Sign Reading Time Taken Comments Blood Pressure 118/84 03/24/2024 3:22 PM AUCTIONEER ART Pulse 112 03/24/2024 3:22 PM AUCTIONEER ART Temperature 37 C (98.6 F) 03/24/2024 3:22 PM AUCTIONEER ART Respiratory Rate 18 03/24/2024 3:22 PM AUCTIONEER ART Oxygen Saturation 99% 03/24/2024 3:22 PM AUCTIONEER ART Inhaled Oxygen Concentration - - Weight 78 kg (172 lb) 03/24/2024 3:22 PM AUCTIONEER ART Height 166 cm (5' 5.35) 07/05/2008 7:06 [...] Advance Directives For more information, please contact: [phone] * No Code Status (Latest Code Status on File) Date Activated Date Inactivated Comments 12/06/2003 8:34 AM 12/06/2003 8:34 AM Care Teams Supervisor Brake Repair Relationship Specialty [place] [address] [address] PCP - General 05/01/08
--- OUTSIDE RECORDS SUMMARY | 2024-04-12 19:00 | XMS_ITS | Clinical Summary ---
Author Organization [facility] Address [address] [place] [address] Care Team Providers Care Postdoctoral Fellow Name Role Phone None Reported, Pcp Primary Care Provider Unavail able Source Comments Patient records contain information from all sites at [facility]. For routine questions regarding patient records, call [phone] during business hours, M-F 8:00 AM - 5:00 PM Central Time. 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 Presented with rectal bleeding. Treated in [place]. Immunizations Immunization Administration Dates Next Due DTP [...] AM CDT Legal Sex Female 7:22 PM CONVENTIONS RESERVATIONIST Gender Identity Female 10/24/2018 11:13 AM CDT [...] age to complete this topic Insurance [facility] [address] [employer] [id number] [place] [id number] [id number] [id number] [place] [id number] Care Teams Postdoctoral Fellow Relationship Specialty Start Date End Date None Reported, Pcp PCP - General 01/06/24
--- OUTSIDE RECORDS SUMMARY | 2024-04-12 19:00 | XMS_ITS | Clinical Summary ---
Author Organization [facility] Address [address] [place] [address] Care Team Providers Care Graphic Specialist Name Role Phone Andrés Collazo MD Primary [...] for each transition of care or referral. [facility] [employer] Allergies Active Allergy Reactions Criticality Noted Date [...] (08/13/2022): Added automatically from request for surgery [id number] Colorectal cancer 08/07/2012 08/13/2022 Overview (08/13/2022): Removed in 2003. Presented with rectal bleeding. Treated in [place]. Immunizations Immunization Administration Dates Next Due DTP [...] Negative (Non Reactive) 08/13/2022 7:27 PM CDT [facility] Comment:HIV-1 p24 Antigen an d HIV-1/HIV-2 Antibody not detected Blood Venipuncture / Unknown 08/13/2022 10:40 AM CDT 08/13/2022 10:40 AM CDT Andrés Collazo MD LAB_1 Final Result Performing Organization Address [facility] Co de Phone Number [facility] [address] * Hepatitis C Antibody, with Reflex (08/13/2022 10:40 AM CDT) Hepatitis C Antibody Negative (Non Reactive) Negative (Non Reactive) 08/13/2022 7:27 PM CDT [facility] Comment:Antibodies to HCV no t detected. Does not exclude the possiblity of exposure to HCV. Blood Venipuncture / Unknown 08/13/2022 10:40 AM CDT 08/13/2022 10:40 AM CDT us Andrés Collazo MD LAB_1 Final Result Performing Organization Address [facility] de Phone Number [facility] [address] [place] [address] from Last 3 Months or Most Recently Relevant to Health Maintenance Insurance [id number] [place] [id number] [facility] Care Teams Graphic Specialist Relationship Specialty Start Date End Date Andrés Collazo MD [address] [place] [address] PCP - General Family Practice 08/12/22
--- OUTSIDE RECORDS SUMMARY | 2024-04-12 19:00 | XMS_ITS | Clinical Summary ---
Author Organization [place] Address [address] [facility] 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 Gender Identity Not on file Sexual Orientation [...] CDT) Sodium 138 133 - 144 mmol/L [facility] Potassium 3.4 3.4 - 5.3 mmol/L [facility] Chloride 104 94 - 109 mmol/L [facility] Carbon Dioxide 22 20 - 32 mmol/L [facility] Anion Gap 11 6 - 17 mmol/L [facility] Glucose 99 60 - 99 mg/dL [facility] Urea Nitrogen 6 5 - 24 mg/dL [facility] Creatinine 0.65 0.52 - 1.04 mg/dL [facility] GFR Estimate >90 >60 mL/min/1.7 m2 [facility] GFR Estimate If Black >90 >60 mL/min/1.7 m2 [facility] Calcium 9.1 8.5 - 10.4 mg/dL [facility] Blood specimen (specimen) 12/12/2011 1:50 AM CDT 12/12/2011 1:51 AM CDT Chantell Gonzalez MD LAB - BLOOD ORDERABLES Fin al Result [facility] [address] [place] [address], [facility] [phone] from Last 3 Months or Most Recently Relevant to Health Maintenance Insurance [facility] Care Teams Hand I Blocker Relationship Specialty Start Date End Date Manuel Sanches MD PCP - General Family Medicine 08/19/21 No Ref-Primary, Physician 08/19/21 Aurelia Farah MD [address] [place] [address] Gynecologic Oncology 08/19/21 Sherice Walter, RN Specialty Surgical Resident Gynecologic Oncology 09/12/21
--- OUTSIDE RECORDS SUMMARY | 2024-04-12 19:00 | XMS_ITS | Encounter Summary ---
Author Organization [facility] Address [address] [place] [address] Care Team Providers Care Avionics Shop Supervisor Name Role Phone Andrés Collazo MD Primary Care Provider Reason for Visit * Reason Comments Phq9 Follow Up Encounter Details Date Type Department Care Team (Late st Contact Info) Description 10/20/2022 Nurse Triage [facility] [address] [facility] [place] [address] Andrés Collazo MD [address] [place] [address] Phq9 Follow Up Social History [...] to return call to Nurse Line at [phone]. +PHQ-9 with a score of 17 dated 10/20/22. No scheduled appointment. * Markus Cortez RN - 10/20/2022 12:00 PM CDT Call placed to patient, left message to call back, call back number provided. documented in this encounter Plan of Treatment Not on file documented as of this encounter Visit Diagnoses Not on filedocumented in this encounter Care Teams Avionics Shop Supervisor Relationship Specialty Start Date End Date Andrés Collazo MD [address] [place] [address] PCP - General Family Practice 08/12/22 documented as of this encounter
--- OUTSIDE RECORDS SUMMARY | 2024-04-12 19:00 | XMS_ITS | Encounter Summary ---
Author Organization [facility] Address [address] [place] [address] Phone Care Team Providers Care Senior Java Web Application Developer Name Role Phone Asya Cee MD Primary Care Provider [phone] Reason for Visit * Reason Comments Dental Pain Encounter Details Date Type Department Care Team (Late st Contact Info) Description 03/24/2024 3:17 PM VP TRAINING - 03/24/2024 3:45 PM [place] [address] Mari Mendez, PAAixaC [address] [place] [address] Pain, dental (Primary Dx) Discharge Disposition: [...] on file Legal Sex Female 4:39 PM VP TRAINING Gender Identity Not on file Sexual Orientation Not on file 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 Not on file Not on file documented as of this encounter Last Filed Vital Signs Vital Sign Reading Time Taken Comments Blood Pressure 118/84 03/24/2024 3:22 PM VP TRAINING Pulse 112 03/24/2024 3:22 PM VP TRAINING Temperature 37 C (98.6 F) 03/24/2024 3:22 PM VP TRAINING Respiratory Rate 18 03/24/2024 3:22 PM VP TRAINING Oxygen Saturation 99% 03/24/2024 3:22 PM VP TRAINING Inhaled Oxygen Concentration - - Weight 78 kg (172 lb) 03/24/2024 3:22 PM VP TRAINING Height - - Body Mass Index - - documented in this encounter Discharge Instructions * Discharge Instructions* Mari Mendez PA-C - 03/24/2024 3:35 PM VP TRAINING Clindamycin as directed, finish to completion [place] every 4-6 hours as needed for more [...] voice changes, or with any other concerns TRAINING TRAINING documented in this encounter Medications at Time [...] Indications: Infection 28 Capsule 03/24/2024 HYDROcodone-acet aminophen ([place]) 5-325 MG oral tablet Take 1 Tablet [...] with food. 40 Tablet 03/24/2024 HYDROcodone-aceta minophen ([place]) 5-325 MG oral tablet Take 1 Tablet [...] Means Destination Comment s Home and/or Self Residential documented in this encounter ED Notes * [...] Capsule 03/24/2024 -- Mari Mendez PA-C HYDROcodone-acetaminophen ([place]) 5-325 MG oral tablet Take 1 Tablet by mouth every six hours as needed for Pain for up to 3 days. Limit acetaminophen to 4000 mg per day from all sources. 10 Tablet 03/24/2024 03/27/2024 Mari Mendez PA-C Clindamycin as directed Ibuprofen prn pain Woodside for severe pain, drowsiness and constipating effects [...] Instructions Clindamycin as directed, finish to completion [place] every 4-6 hours as needed for more [...] other concerns Mari Mendez PA-C 03/24/24 1700 TRAINING * Alisa Carnes, MYRNA - 03/24/2024 3:20 PM CST Pt arrived due to dental pain right lower jaw -- pulsating pain for two days -- dentist appointmentin two weeks -- TRAINING documented in this encounter Plan of Treatment Not on file documented as of this encounter Visit Diagnoses Diagnosis Pain, dental- Primary Unspecified disorder of the teeth and supporting structures documented in this encounter Care Teams Senior Java Web Application Developer Relationship Specialty [place] [address] [address] PCP - General 05/01/08 documented as of this encounter
--- OUTSIDE RECORDS SUMMARY | 2024-04-12 19:00 | XMS_ITS | Encounter Summary ---
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
== END 2024-04-12 19:05 | disposition home or self-care (01) ==
LOC: ED 18:57
PROVIDERS: Emergency Provider Family Medicine; PCP Family Medicine
DX: U07.1 COVID-19 (principal)
CPT/HCPCS: 87631; 99283

== ENCOUNTER 2024-06-08 20:42 | Emergency (ER) | payer OTHER, SELFPAY ==
--- OUTSIDE RECORDS SUMMARY | 2024-06-08 20:44 | XMS_ITS | Encounter Summary ---
Author Organization [facility] Address [address] [place] [address] Care Team Providers Care Bar Host Name Role Phone Andrés Collazo MD Primary Care Provider Reason for Visit * Reason Comments Phq9 Follow Up Encounter Details Date Type Department Care Team (Late st Contact Info) Description 10/20/2022 Nurse Triage [facility] Medicine [address] [place] [address] Andrés Collazo MD [address] [place] [address] Phq9 Follow Up Social History [...] to return call to Nurse Line at [phone]. +PHQ-9 with a score of 17 dated 10/20/22. No scheduled appointment. * Markus Cortez RN - 10/20/2022 12:00 PM CDT Call placed to patient, left message to call back, call back number provided. documented in this encounter Plan of Treatment Not on file documented as of this encounter Visit Diagnoses Not on filedocumented in this encounter Care Teams Bar Host Relationship Specialty Start Date End Date Andrés Collazo MD [address] [place] [address] PCP - General Family Practice 08/12/22 documented as of this encounter
--- OUTSIDE RECORDS SUMMARY | 2024-06-08 20:44 | XMS_ITS | Clinical Summary ---
Author Organization [facility] Address [address] [place] [address] Phone Care Team Providers Care Technology Training Associate Name Role Phone Asya Cee MD Primary Care Provider Allergies Active Allergy Reactions Criticality Noted Date [...] time a day. 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 Bharat crawford M.D. 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 Last Filed Vital Signs Vital Sign Reading Time Taken Comments Blood Pressure 118/84 03/24/2024 3:22 PM TRAVELING OPERATOR Pulse 112 03/24/2024 3:22 PM TRAVELING OPERATOR Temperature 37 C (98.6 F) 03/24/2024 3:22 PM TRAVELING OPERATOR Respiratory Rate 18 03/24/2024 3:22 PM TRAVELING OPERATOR Oxygen Saturation 99% 03/24/2024 3:22 PM TRAVELING OPERATOR Inhaled Oxygen Concentration - - Weight 78 kg (172 lb) 03/24/2024 3:22 PM TRAVELING OPERATOR Height 166 cm (5' 5.35) 07/05/2008 7:06 [...] 11/13/1984, 10/15/1984, Additional history exists COVID-19 Vaccine (2023- season) 2023 Influenza Vaccine Seasonal (Standing Order) (#1) 2023 HPV Vaccine (Standing Order) Aged Out No longer eligible based on patient's age to complete this topic Insurance [employer] [facility] [employer] Advance Directives For more information, please contact: [phone] * No Code Status (Latest Code Status on File) Date Activated Date Inactivated Comments 12/06/2003 8:34 AM 12/06/2003 8:34 AM Care Teams Technology Training Associate Relationship Specialty [place] [address] [address] PCP - General 05/01/08
--- OUTSIDE RECORDS SUMMARY | 2024-06-08 20:44 | XMS_ITS | Encounter Summary ---
Author Organization [facility] Address [address] [facility] [place] [address] Care Team Providers Care Fast Food Assistant Restaurant Manager Name Role Phone Manuel Sanches MD Primary Care Provider [phone] No Ref-Primary, Physician Unavailable [phone] Aurelia Farah MD Unavailable Sherice Walter RN Unavailable [phone] Aurelia Farah MD Unavailable [phone] Encounter Details Date Type Department Care Team (Late st Contact Info) Description 07/05/[address] [facility] [place] [id number] Otilia Hernandez Social History Tobacco Use Types [...] on file 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 Gender Identity Not on file Sexual Orientation Not on file documented as of this encounter Plan of Treatment Not on file documented as of this encounter Visit Diagnoses Not on filedocumented in this encounter Care Teams Fast Food Assistant Restaurant Manager Relationship Specialty Start Date End Date Manuel Sanches MD PCP - General Family Medicine 08/19/21 No Ref-Primary, Physician 08/19/21 Aurelia Farah MD [address] [place] [address] Gynecologic Oncology 08/19/21 Sherice Walter, RN Specialty Landscaper Helper Gynecologic Oncology 09/12/21 Aurelia Farah MD [address] [place] [address] 544295 Assigned Cancer Care Provider 09/19/21 05/12/23 documented as of this encounter
--- OUTSIDE RECORDS SUMMARY | 2024-06-08 20:44 | XMS_ITS | Clinical Summary ---
Author Organization [facility] Address [address] [place] [address] Care Team Providers Care Home Health Attendant Name Role Phone None Reported, Pcp Primary Care Provider Unavail able Source Comments Patient records contain information from all sites at [facility]. For routine questions regarding patient records, call [phone] during business hours, M-F 8:00 AM - 5:00 PM Central Time. 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 Presented with rectal bleeding. Treated in [place]. 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
--- OUTSIDE RECORDS SUMMARY | 2024-06-08 20:44 | XMS_ITS | Clinical Summary ---
Author Organization [place] Address [address] [facility] [place] [address] Care Team Providers Care Produce Assistant Name Role Phone Manuel Sanches MD Primary Care Provider No Ref-Primary, Physician Unavailable [phone] Aurelia Farah MD Unavailable Sherice Walter RN [...] (09/09/2021): Added automatically from request for surgery [id number] Family History Medical History Relation Comments Breast [...] on file Legal Sex Female 4:28 AM PRESS SET UP Gender Identity Not on file Sexual Orientation [...] of 3 - 19+ 3-dose series) 2001 DIABETES SCREENING 12/11/2014 12/12/2011 LIPID 2022 COVID-19 Vaccine ( season) 2023 04/28/2020, 03/31/2020 INFLUENZA VACCINE (#1) 2023 PHQ-2 (once per calendar year) 2024 PAP 06/29/2024 06/29/2021, 06/29/2021 DTAP/TDAP/TD IMMUNIZATION (8 - Td or Tdap) 07/29/2030 07/29/2020, 07/12/1996, 07/12/1996, Additional history exists ZOSTER IMMUNIZATION (1 of 2) 2032 HPV IMMUNIZATION Aged Out No longer e [...] CDT) Sodium 138 133 - 144 mmol/L [facility] Potassium 3.4 3.4 - 5.3 mmol/L [facility] Chloride 104 94 - 109 mmol/L [facility] Carbon Dioxide 22 20 - 32 mmol/L [facility] Anion Gap 11 6 - 17 mmol/L [facility] Glucose 99 60 - 99 mg/dL [facility] Urea Nitrogen 6 5 - 24 mg/dL [facility] Creatinine 0.65 0.52 - 1.04 mg/dL [facility] GFR Estimate >90 >60 mL/min/1.7 m2 [facility] GFR Estimate If Black >90 >60 mL/min/1.7 m2 [facility] Calcium 9.1 8.5 - 10.4 mg/dL [facility] Blood specimen (specimen) 12/12/2011 1:50 AM CDT 12/12/2011 1:51 AM CDT Chantell Gonzalez MD LAB - BLOOD ORDERABLES Fin al Result M [facility] [address] [place] [address], [facility] [phone] from Last 3 Months or Most Recently Relevant to Health Maintenance Insurance [facility] Care Teams Produce Assistant Relationship Specialty Start Date End Date Manuel Sanches MD PCP - General Family Medicine 08/19/21 No Ref-Primary, Physician 08/19/21 Aurelia Farah MD [address] [place] [address] Gynecologic Oncology 08/19/21 Sherice Walter, MYRNA Specialty Corporate Quality Assurance Manager Gynecologic Oncology 09/12/21
--- OUTSIDE RECORDS SUMMARY | 2024-06-08 20:44 | XMS_ITS | Encounter Summary ---
Author Organization [place] Address [address] [facility] [place] [address] Care Team Providers Care Quick Technician Name Role Phone Manuel Sanches MD Primary Care Provider No Ref-Primary, Physician Unavailable Aurelia Farah MD Unavailable Sherice Walter RN Unavailable [phone] Aurelia Farah MD Unavailable Encounter Details Date Type Department Care Team (Late st Contact Info) Description 10/08/2021 MyC Medical Advice [facility] [address] [facility] [place] [address] Aurelia Farah MD [address] [place] [address] [address] [place], [place] [id number] Social History Tobacco Use Types Packs/Day Years [...] on file 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
--- OUTSIDE RECORDS SUMMARY | 2024-06-08 20:44 | XMS_ITS | Clinical Summary ---
Author Organization [facility] Address [address] [place] [address] Care Team Providers Care Mail Examiner Name Role Phone Andrés Collazo MD Primary [...] for each transition of care or referral. [facility] Allergies Active Allergy Reactions Criticality Noted Date [...] (08/13/2022): Added automatically from request for surgery [id number] Colorectal cancer 08/07/2012 08/13/2022 Overview (08/13/2022): Removed in 2003. Presented with rectal bleeding. Treated in [place]. Immunizations Immunization Administration Dates Next Due DTP [...] on patient's age to complete this topic Meningococcal B Aged Out No longer el igible based on patient's age to complete this [...] Negative (Non Reactive) 08/13/2022 7:27 PM CDT [facility] Comment:HIV-1 p24 Antigen an d HIV-1/HIV-2 Antibody not detected Blood Venipuncture / Unknown 08/13/2022 10:40 AM CDT 08/13/2022 10:40 AM CDT Andrés Collazo MD LAB_1 Final Result Performing Organization Address [facility] Co de Phone Number [facility] [address] [place] [address] * Hepatitis C Antibody, with Reflex (08/13/2022 10:40 AM CDT) Hepatitis C Antibody Negative (Non Reactive) Negative (Non Reactive) 08/13/2022 7:27 PM CDT [facility] Comment:Antibodies to HCV no t detected. Does not exclude the possiblity of exposure to HCV. Blood Venipuncture / Unknown 08/13/2022 10:40 AM CDT 08/13/2022 10:40 AM CDT us Andrés Collazo MD LAB_1 Final Result Performing Organization Address [facility] de Phone Number [facility] [address] [place] [address] from Last 3 Months or Most Recently Relevant to Health Maintenance Insurance [employer] Care Teams Mail Examiner Relationship Specialty Start Date End Date Andrés Collazo MD [address] [place] [address] PCP - General Family Practice 08/12/22
--- OUTSIDE RECORDS SUMMARY | 2024-06-08 20:44 | XMS_ITS | Clinical Summary ---
Author Organization [facility] Address [address] [place] [address] Care Team Providers Care Field Case Manager Name Role Phone Ibrahima Sanches MD Primary Care Provider [phone] Allergies Active Allergy Reactions Criticality Noted Date [...] 2003. Presented with rectal bleeding. Treated in [place]. Immunizations Immunization Administration Dates Next Due Td (Age >=7 [...] booster 02/28/2018 02/29/2008 (Comp leted outside of [facility]), 07/12/1996 BMI (ht and wt on same day) for age 18+ 06/14/2018 06/14/2017 Depression screening for age 12+ 06/14/2018 06/15/19 18 COVID-19 vaccine series ( season) 2023 04/28/2020, 03/31/2020 Pap test for age 21-65 06/29/2024 06/29/2021, 2021 Influenza Vaccine (Season Ended) 2024 Tdap Completed 02/29/2008 (Comp leted outside of [facility]) Procedures Procedure Name Priority Date/Time Associated Diagnosis Comments HPV HIGH RISK Routine 06/29/2021 10:46 AM CDT from Last 3 Months or Most Recently Relevant to Health Maintenance Results * (ABNORMAL) HPV HIGH RISK (06/29/2021 10:46 AM CDT) TYPE 16 Negative Negative 07/01/2021 12:03 PM CDT [facility] TYPE 18 Negative Negative 07/01/2021 12:03 PM CDT [facility] OTHER HIGH RISK TYPES Positive(A) Negative 07/01/2021 12:03 PM CDT [facility] Other (Cervical/Vagina l) 06/29/2021 10:46 AM CDT 06/30/2021 7:39 AM CDT Narrative [facility] - 07/01/2021 12:03 PM CDT Specimen [...] Ibrahima Sanches MD MICROBIOLOGY Final Resul t [facility] [address] [place] [address], from Last 3 Months or Most Recently Relevant to [place] [address] [address] [place] [id number] Care Teams Field Case Manager Relationship Specialty Start Date End Date Ibrahima Sanches MD [address] [place] [address] PCP - General Family Practice 09/11/23
[2024-06-08 21:00] VITALS: BP 131/83; PULSE 81; RESP 18; TEMP 36.8; O2SAT 100; BMI 28.7
--- OUTSIDE RECORDS SUMMARY | 2024-06-08 21:24 | XMS_ITS | Encounter Summary ---
Author Organization [facility] Address [address] [facility] 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 Gender Identity Not on file Sexual Orientation Not on file documented as of this encounter Plan of Treatment Not on file documented as of this encounter Visit Diagnoses Not on filedocumented in this encounter Care Teams Infrastructure Analyst Relationship Specialty Start Date End Date Manuel Sanches MD PCP - General Family Medicine 08/19/21 No Ref-Primary, Physician 08/19/21 Aurelia Farah MD [address] [place] [phone] Gynecologic Oncology 08/19/21 Sherice Walter, RN Specialty Chemicals Distiller Gynecologic Oncology 09/12/21 Aurelia Farah MD [address] [place] [phone] Assigned Cancer Care Provider 09/19/21 05/12/23 documented as of this encounter
--- OUTSIDE RECORDS SUMMARY | 2024-06-08 21:24 | XMS_ITS | Clinical Summary ---
Author Organization [facility] Address [address] [place] [address] Care Team Providers Care Unloading Checker Name Role Phone None Reported, Pcp Primary Care Provider Unavail able Source Comments Patient records contain information from all sites at [facility]. For routine questions regarding patient records, call [phone] during business hours, M-F 8:00 AM - 5:00 PM Central Time. 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 Presented with rectal bleeding. Treated in [place]. 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
--- OUTSIDE RECORDS SUMMARY | 2024-06-08 21:24 | XMS_ITS | Clinical Summary ---
Author Organization [facility] Address [address] 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 Gender Identity Not on file Sexual [...] CDT) Sodium 138 133 - 144 mmol/L [facility] Potassium 3.4 3.4 - 5.3 mmol/L [facility] Chloride 104 94 - 109 mmol/L [facility] Carbon Dioxide 22 20 - 32 mmol/L [facility] Anion Gap 11 6 - 17 mmol/L [facility] Glucose 99 60 - 99 mg/dL [facility] Urea Nitrogen 6 5 - 24 mg/dL [facility] Creatinine 0.65 0.52 - 1.04 mg/dL [facility] GFR Estimate >90 >60 mL/min/1.7 m2 [facility] GFR Estimate If Black >90 >60 mL/min/1.7 m2 [facility] Calcium 9.1 8.5 - 10.4 mg/dL [facility] Blood specimen (specimen) 12/12/2011 1:50 AM CDT 12/12/2011 1:51 AM CDT Chantell Gonzalez MD LAB - BLOOD ORDERABLES Fin al Result M [facility] [address] [place] [address], [facility] [phone] from Last 3 Months or Most Recently Relevant to Health Maintenance Insurance [facility] Care Teams Small Business Representative Relationship Specialty Start Date End Date Manuel Sanches MD PCP - General Family Medicine 08/19/21 No Ref-Primary, Physician 08/19/21 Aurelia Farah MD [address] [place] [address] Gynecologic Oncology 08/19/21 Sherice Walter, MYRNA Specialty Executive Sales Assistant Gynecologic Oncology 09/12/21
--- OUTSIDE RECORDS SUMMARY | 2024-06-08 21:24 | XMS_ITS | Clinical Summary ---
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 Bharat crawford M.D. 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 Last Filed Vital Signs Vital Sign Reading Time Taken Comments Blood Pressure 118/84 03/24/2024 3:22 PM SOA ARCHITECT Pulse 112 03/24/2024 3:22 PM SOA ARCHITECT Temperature 37 C (98.6 F) 03/24/2024 3:22 PM SOA ARCHITECT Respiratory Rate 18 03/24/2024 3:22 PM SOA ARCHITECT Oxygen Saturation 99% 03/24/2024 3:22 PM SOA ARCHITECT Inhaled Oxygen Concentration - - Weight 78 kg (172 lb) 03/24/2024 3:22 PM SOA ARCHITECT Height 166 cm (5' 5.35) 07/05/2008 7:06 [...] Advance Directives For more information, please contact: [phone] * No Code Status (Latest Code Status on File) Date Activated Date Inactivated Comments 12/06/2003 8:34 AM 12/06/2003 8:34 AM Care Teams Acquisitions Librarian Relationship Specialty [place] [id number] [address] PCP - General 05/01/08
--- OUTSIDE RECORDS SUMMARY | 2024-06-08 21:24 | XMS_ITS | Clinical Summary ---
Author Organization [facility] Address [address] [place] [address] Care Team Providers Care Mechanical Sound Technician Name Role Phone Ibrahima Sanches MD Primary Care Provider [phone] Allergies Active Allergy Reactions Criticality Noted Date [...] 2003. Presented with rectal bleeding. Treated in [place]. Immunizations Immunization Administration Dates Next Due Td [...] booster 02/28/2018 02/29/2008 (Comp leted outside of [facility]), 07/12/1996 BMI (ht and wt on same day) for age 18+ 06/14/2018 06/14/2017 Depression screening for age 12+ 06/14/2018 06/15/19 18 COVID-19 vaccine series ( season) 2023 04/28/2020, 03/31/2020 Pap test for age 21-65 06/29/2024 06/29/2021, 2021 Influenza Vaccine (Season Ended) 2024 Tdap Completed 02/29/2008 (Comp leted outside of [facility]) Procedures Procedure Name Priority Date/Time Associated Diagnosis Comments HPV HIGH RISK Routine 06/29/2021 10:46 AM CDT from Last 3 Months or Most Recently Relevant to Health Maintenance Results * (ABNORMAL) HPV HIGH RISK (06/29/2021 10:46 AM CDT) TYPE 16 Negative Negative 07/01/2021 12:03 PM CDT [facility] TYPE 18 Negative Negative 07/01/2021 12:03 PM CDT [facility] OTHER HIGH RISK TYPES Positive(A) Negative 07/01/2021 12:03 PM CDT [facility] Other (Cervical/Vagina l) 06/29/2021 10:46 AM CDT 06/30/2021 7:39 AM CDT Narrative [facility] - 07/01/2021 12:03 PM CDT Specimen [...] Ibrahima Sanches MD MICROBIOLOGY Final Resul t [facility] [address] [place] [address], from Last 3 Months or Most Recently Relevant to Health Maintenance [place] [address] [address] [employer] [address] [place] [id number] Care Teams Mechanical Sound Technician Relationship Specialty Start Date End Date Ibrahima Sanches MD [address] [place] [address] PCP - General Family Practice 09/11/23
--- OUTSIDE RECORDS SUMMARY | 2024-06-08 21:24 | XMS_ITS | Encounter Summary ---
Author Organization [facility] Address [address] [place] [address] Care Team Providers Care Gravity Flow Irrigator Name Role Phone Andrés Collazo MD Primary Care Provider Reason for Visit * Reason Comments Phq9 Follow Up Encounter Details Date Type Department Care Team (Late st Contact Info) Description 10/20/2022 Nurse Triage [facility] Medicine [address] [facility] [place] [address] Andrés Collazo MD [address] [place] [address] Phq9 Follow Up Social History [...] to return call to Nurse Line at [phone]. +PHQ-9 with a score of 17 dated 10/20/22. No scheduled appointment. * Markus Cortez RN - 10/20/2022 12:00 PM CDT Call placed to patient, left message to call back, call back number provided. documented in this encounter Plan of Treatment Not on file documented as of this encounter Visit Diagnoses Not on filedocumented in this encounter Care Teams Gravity Flow Irrigator Relationship Specialty Start Date End Date Andrés Collazo MD [address] [place] [address] PCP - General Family Practice 08/12/22 documented as of this encounter
--- OUTSIDE RECORDS SUMMARY | 2024-06-08 21:24 | XMS_ITS | Clinical Summary ---
Author Organization [facility] Address [address] [place] [address] Care Team Providers Care Raw Stock Drier Tender Name Role Phone Andrés Collazo MD Primary [...] for each transition of care or referral. Tykli Allergies Active Allergy Reactions Criticality Noted Date [...] (08/13/2022): Added automatically from request for surgery [id number] Colorectal cancer 08/07/2012 08/13/2022 Overview (08/13/2022): Removed in 2003. Presented with rectal bleeding. Treated in [place]. Immunizations Immunization Administration Dates Next Due DTP [...] Negative (Non Reactive) 08/13/2022 7:27 PM CDT [facility] Comment:HIV-1 p24 Antigen an d HIV-1/HIV-2 Antibody not detected Blood Venipuncture / Unknown 08/13/2022 10:40 AM CDT 08/13/2022 10:40 AM CDT Andrés Collazo MD LAB_1 Final Result Performing Organization Address [facility] Co de Phone Number [facility] [address] [place] [address] * Hepatitis C Antibody, with Reflex (08/13/2022 10:40 AM CDT) Hepatitis C Antibody Negative (Non Reactive) Negative (Non Reactive) 08/13/2022 7:27 PM CDT [facility] Comment:Antibodies to HCV no t detected. Does not exclude the possiblity of exposure to HCV. Blood Venipuncture / Unknown 08/13/2022 10:40 AM CDT 08/13/2022 10:40 AM CDT us Andrés Collazo MD LAB_1 Final Result Performing Organization Address [facility] de Phone Number [facility] [address] [place] [address] from Last 3 Months or Most Recently Relevant to Health Maintenance Insurance [employer] Care Teams Raw Stock Drier Tender Relationship Specialty Start Date End Date Andrés Collazo MD [address] [place] [address] PCP - General Family Practice 08/12/22
--- OUTSIDE RECORDS SUMMARY | 2024-06-08 21:24 | XMS_ITS | Encounter Summary ---
Author Organization [facility] Address [address] [facility] 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 Role Phone Manuel Sanches MD Primary Care Provider [phone] No Ref-Primary, Physician Unavailable Aurelia Farah MD Unavailable Sherice Walter RN Unavailable Aurelia Farah MD Unavailable Encounter Details Date Type Department Care Team (Late st Contact Info) Description 10/08/2021 MyC Medical Advice [facility] [address] [facility] [place] [address] Aurelia Farah MD [address] [place] [address] [address] [place], [place] [id number] Social History Tobacco Use Types Packs/Day Years [...] on file 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
[2024-06-08] MEDS: TRAMADOL HCL 50 MG TABLET PO (21:25)
[2024-06-08] MEDS: CLINDAMYCIN 150 MG CAPSULE 300 MG PO (21:45)
--- NOTE | 2024-06-11 12:01 | ED.GENADULT ---
HPI - General Adult General Date Seen: 06/08/24 Chief complaint: Dental/Oral/Mouth Injury/Pain Stated complaint: Abscess tooth R side Time Seen by Provider: 06/08/24 21:15 History of Present Illness HPI narrative: Or 43-year-old female presenting to the ER today for evaluation of dental pain affecting her right lower jaw molar and radiating to her right lower jaw and right cheek. She has had trouble with that tooth for some time including extractions of several others on that side and a cap on that tooth. It has been hurting off and on for a month. It got worse lately. She has been having more severe pain and now has a sensation of swelling in her gums and pain radiated into her cheek. She is not running a fever. Hurts to chew. No obstruction to swallowing. Sometimes the pain radiates under her jaw but no swelling there. No fever. Related Data Home Medications ?Medication ?Instructions ?Recorded ?Confirmed ibuprofen 400 mg tablet 400 mg PO Q8H 06/08/24 06/08/24 Previous Rx's ?Medication ?Instructions ?Recorded clindamycin HCl 300 mg capsule 300 mg PO TID #30 caps 06/08/24 tramadol 50 mg tablet 50 mg PO Q6H PRN pain #20 tabs 06/08/24 Allergies Allergy/AdvReac Type Severity Reaction Status Date / Time amoxicillin (From Augmentin) Allergy Unknown N/V Verified 06/08/24 21:06 clavulanic acid (From Allergy Unknown N/V Verified 06/08/24 21:06 Augmentin) codeine Allergy Unknown N/V Verified 06/08/24 21:06 lactose Allergy Unknown Verified 06/08/24 21:06 [facility] Medical History Left foot pain ?M79.672 - Pain in left foot (ICD-10) Carcinoma in situ of cervix (2003) ?D06.9 - Carcinoma in situ of cervix, unspecified (ICD-10) Adhesive capsulitis ?M75.00 - Adhesive capsulitis of unspecified shoulder (ICD-10) Surgical History Status post cone biopsy of cervix ?Z98.890 - Other specified postprocedural states (ICD-10) Status post colposcopy (08/10/21) ?Z98.890 - Other specified postprocedural states (ICD-10) History of loop electrosurgical excision procedure (LEEP) of cervix (2003) ?Z98.890 - Other specified postprocedural states (ICD-10) History of abdominal supracervical subtotal hysterectomy (2005) ?Z90.711 - Acquired absence of uterus with remaining cervical stump (ICD-10) Status post partial colectomy ?Z90.49 - Acquired absence of other specified parts of digestive tract (ICD-10) Status post cholecystectomy ?Z90.49 - Acquired absence of other specified parts of digestive tract (ICD-10) Family History Other Breast cancer Diabetes Rheumatoid arteritis Social History Narrative: Former smoker Quit 2017 In the past 12 months, utilities in danger of being shut off: no In past 12 months, lack of transportation kept you from medical appts, meetings, work, or getting things needed for daily living: no In the past 12 mos, have been you worried that your food would run out before you had money to buy more?: never true In the past 12 mos, the food you bought just didn't last and you didn't have money to buy more?: never true Smoking Status: Former smoker Do you use any of these nicotine containing products: None Second hand tobacco smoke exposure: No How often do you have a drink containing alcohol: never How often do you have six or more drinks on one occasion: Never AUDIT-C Alcohol total score: 0 Non-prescribed substance use: denies use How often does anyone, including family, friends and others, physically hurt you: never How often does anyone, including family, friends and others, insult or talk down to you: never How often does anyone, including family, friends and others, threaten you with harm: never How often does anyone, including family, friends and others, scream or curse at you: never Exam Narrative: Exam Narrative: Patient examined in ER triage because the department was full and we did not want the patient to wait for a bed to open up. Constitutional: Appears well-developed and well-nourished. Active. Non-toxic appearing. Uncomfortable appearing. HENT: Head: Atraumatic. No signs of injury. Nose: No nasal discharge. Mouth/Throat: Mucous membranes are moist. Pharynx is normal. Tonsils symmetric. Uvula midline. Airway patent. No submandibular swelling. No trismus. Tongue normal. Pharynx and tonsils normal. She has had extraction of multiple molars on both lower jaws. She does have [address] on the right lower jaw, I think it is tooth number 30. Weaning. I do not appreciate any gingival swelling or lump around the tooth suggest a drainable gingival abscess. Although she has pain radiating into her cheek she has no redness or swelling and no palpable buccal space abscess. Eyes: Conjunctivae normal and EOM are normal. Pupils are equal, round, and reactive to light. Right eye exhibits no discharge. Left eye exhibits no discharge. No icterus. Neck: Normal range of motion. Neck supple. No adenopathy. No stridor. Cardiovascular: Normal rate and regular rhythm. No murmur heard. No murmurs, rubs, or gallops. Brisk capillary refill Pulmonary/Chest: Effort normal. No stridor. No respiratory distress Musculoskeletal: Normal range of motion. No edema. No tenderness. No deformity. Neurological: Alert. Normal strength. No cranial nerve deficit or sensory deficit. Coordination normal. GCS eye subscore is 4. GCS verbal subscore is 5. GCS motor subscore is 6. Skin: Skin is warm. No rash noted. Course Vital Signs Vital signs: Initial Vital Signs Temperature 98.2 F 06/08/24 21:00 Temperature Source Temporal Artery Scan 06/08/24 21:00 Pulse Rate 81 06/08/24 21:00 Respiratory Rate 18 06/08/24 21:00 Blood Pressure 131/83 06/08/24 21:00 Blood Pressure Mean 99 06/08/24 21:00 Blood Pressure Position Sitting 06/08/24 21:00 Pulse Oximetry 100 06/08/24 21:00 Oxygen Delivery Method Room Air 06/08/24 21:00 Vital Signs Temperature 98.2 F 06/08/24 21:00 Pulse Rate 81 06/08/24 21:00 Respiratory Rate 18 06/08/24 21:00 Blood Pressure 131/83 06/08/24 21:00 Pulse Oximetry 100 06/08/24 21:00 Oxygen Delivery Method Room Air 06/08/24 21:00 Temperature 98.2 F 06/08/24 21:00 Pulse Rate 81 06/08/24 21:00 Respiratory Rate 18 06/08/24 21:00 Blood Pressure 131/83 06/08/24 21:00 Pulse Oximetry 100 06/08/24 21:00 Oxygen Delivery Method Room Air 06/08/24 21:00 Medications Administered Medications: Discontinued Medications Generic Name Dose Route Start Last Admin Trade Name [place] PRN Reason Stop Dose Admin Clindamycin HCl 300 mg 06/08/24 21:18 06/08/24 21:45 Clindamycin 150 Mg Capsule PO 06/08/24 21:19 300 mg ONCE ONE Administration Tramadol HCl 50 mg 06/08/24 21:18 06/08/24 21:25 Tramadol Hcl 50 Mg Tablet PO 06/08/24 21:19 50 mg ONCE ONE Administration Medical Decision Making [facility] Narrative Medical decision making narrative: This patient presents with a tooth ache. The differential diagnosis includes: cracked tooth syndrome, pulpitis, sub-apical abscess, amongst others. There is no abscess detected around the tooth amenable to incision and drainage. There is no evidence of buccinator/canine space infections, significant facial swelling, or Edy's angina. There are no posterior pharyngeal space infections detected. Suspect pulpitis. Treatment with NSAID, antibiotics. Follow up with a dentist/staff sonographer in the coming days is indicated for further work up and treatment. Instructions for return to the ER were reviewed with the patient. Discharge Plan Discharge Clinical Impression: Pain, dental, Acute facial pain Patient Disposition: Home, Self-Care Condition: Stable Instructions: Dental Abscess (ED), Toothache (ED) Additional Instructions: Please come back to the ER right away if you have worsening swelling in your face or gums, swelling underneath your mouth, trouble swallowing or trouble breathing, or high fever, or if you have any other concerns. Please take your next dose of antibiotic tomorrow morning. It typically takes 48 hours or so for antibiotics S2 heart help improving infection. To manage her pain continue with Tylenol or ibuprofen 1st. Take the prescription pain medication, tramadol, if needed for pain uncontrolled by the other meds. Be careful with tramadol because it can be addictive. He can cause dizziness and drowsiness. Please follow-up with your dentist as soon as possible for a checkup. Call your dentist tomorrow to arrange an emergency appointment for Tuesday. Prescriptions: New tramadol 50 mg tablet 50 mg PO Q6H PRN (Reason: pain) Qty: 20 0RF clindamycin HCl 300 mg capsule 300 mg PO TID Qty: 30 0RF No Action ibuprofen 400 mg tablet 400 mg PO Q8H Follow Up/Referrals: Siva Escobar MD [Referring] - Stand Alone Forms: [facility] Info Instructions
== END 2024-06-08 21:47 | disposition home or self-care (01) ==
LOC: ED 21:22
PROVIDERS: Emergency Provider Emergency Medicine
DX: K08.89 Other specified disorders of teeth and supporting structures (principal); G50.1 Atypical facial pain
CPT/HCPCS: 99282; 99283; A9270

== ENCOUNTER 2024-12-12 08:27 | Emergency (ER) | payer OTHER, SELFPAY ==
[2024-12-12 08:42] VITALS: BP 132/87; PULSE 87; RESP 18; TEMP 36.3; O2SAT 98; BMI 28.7
--- NOTE | 2024-12-12 09:19 | ED.GENADULT ---
HPI - General Adult General Date Seen: 12/12/24 Chief complaint: Shoulder Injury/Pain Stated complaint: L shoulder pain Time Seen by Provider: 12/12/24 09:12 Source: patient Mode of arrival: ambulatory Limitations: no limitations History of Present Illness HPI narrative: Patient is a 44-year-old female presenting for left shoulder pain. She states she has been dealing with adhesive capsulitis for several months now and has seen her primary care provider for this. She has had issues with this before which she saw her primary care provider and symptoms resolved with physical therapy. She has physical therapy scheduled for next week. Currently taking tramadol and ibuprofen and she states this is not helping with the pain. Denies numbness to the arm. Denies any other injuries. States pain is throughout the left shoulder. States this feels just like her previous adhesive capsulitis. Related Data Home Medications ?Medication ?Instructions ?Recorded ?Confirmed ibuprofen 200 mg tablet 800 mg PO TID 10/30/24 12/12/24 Previous Rx's ?Medication ?Instructions ?Recorded ibuprofen 800 mg tablet 800 mg PO TID PRN pain #100 tabs 12/03/24 tramadol 50 mg tablet 50 mg PO Q6H PRN pain #28 tabs 12/03/24 Allergies Allergy/AdvReac Type Severity Reaction Status Date / Time amoxicillin (From Augmentin) Allergy Unknown N/V Verified 10/30/24 10:26 clavulanic acid (From Allergy Unknown N/V Verified 10/30/24 10:26 Augmentin) codeine Allergy Unknown N/V Verified 10/30/24 10:26 lactose Allergy Unknown Verified 10/30/24 10:26 Review of Systems Narrative: Pertinent systems reviewed and were negative unless stated in HPI PFSH PFSH Medical History Diarrhea ?R19.7 - Diarrhea, unspecified (ICD-10) Left foot pain ?M79.672 - Pain in left foot (ICD-10) COVID-19 ?U07.1 - COVID-19 (ICD-10) Adhesive capsulitis ?M75.00 - Adhesive capsulitis of unspecified shoulder (ICD-10) Carcinoma in situ of cervix (2003) ?D06.9 - Carcinoma in situ of cervix, unspecified (ICD-10) Surgical History Status post cone biopsy of cervix ?Z98.890 - Other specified postprocedural states (ICD-10) Status post colposcopy (08/10/21) ?Z98.890 - Other specified postprocedural states (ICD-10) History of loop electrosurgical excision procedure (LEEP) of cervix (2003) ?Z98.890 - Other specified postprocedural states (ICD-10) History of abdominal supracervical subtotal hysterectomy (2005) ?Z90.711 - Acquired absence of uterus with remaining cervical stump (ICD-10) Status post partial colectomy ?Z90.49 - Acquired absence of other specified parts of digestive tract (ICD-10) Status post cholecystectomy ?Z90.49 - Acquired absence of other specified parts of digestive tract (ICD-10) Family History Other Breast cancer Diabetes Rheumatoid arteritis Social History Narrative: Former smoker Quit 2017 In the past 12 months, utilities in danger of being shut off: no In past 12 months, lack of transportation kept you from medical appts, meetings, work, or getting things needed for daily living: no In the past 12 mos, have been you worried that your food would run out before you had money to buy more?: never true In the past 12 mos, the food you bought just didn't last and you didn't have money to buy more?: never true Smoking Status: Former smoker Do you use any of these nicotine containing products: None Second hand tobacco smoke exposure: No How often do you have a drink containing alcohol: never How often do you have six or more drinks on one occasion: Never AUDIT-C Alcohol total score: 0 Non-prescribed substance use: denies use How often does anyone, including family, friends and others, physically hurt you: never How often does anyone, including family, friends and others, insult or talk down to you: never How often does anyone, including family, friends and others, threaten you with harm: never How often does anyone, including family, friends and others, scream or curse at you: never service: No Exam Narrative: Exam Narrative: Const: Well-nourished, Well-developed, in mild distress Eyes: PERRL, no conjunctival injection, and symmetrical lids HENT: Atraumatic external nose and ears. Moist mucous membranes. Neck: Symmetric, trachea midline, No thyromegaly. CVS: Peripheral pulses 2+ and equal in upper extremities MSK:Extremities w/o deformity, decreased range of motion to left shoulder. Skin: Warm, Dry. No rashes or lesions. Neuro: Normal Muscle tone, No focal neurological deficits. Psych: Awake, Alert, & Oriented x3. Appropriate mood and affect. Const: Vital Signs, click to edit/add: Vital Signs - 24 hr 12/12/24 08:42 Temperature 97.4 F L Pulse Rate [Right Pulse Oximeter] 87 Respiratory Rate 18 Blood Pressure [Ri ght Upper Arm] 132/87 Pulse Oximetry 98 Oxygen Delivery Me thod Room Air Course Vital Signs Vital signs: Initial Vital Signs Temperature 97.4 F L 12/12/24 08:42 Temperature Source Temporal Artery Scan 12/12/24 08:42 Pulse Rate 87 12/12/24 08:42 Respiratory Rate 18 12/12/24 08:42 Blood Pressure 132/87 12/12/24 08:42 Blood Pressure Mean 102 12/12/24 08:42 Blood Pressure Position Sitting 12/12/24 08:42 Pulse Oximetry 98 12/12/24 08:42 Oxygen Delivery Method Room Air 12/12/24 08:42 Vital Signs Temperature 97.4 F L 12/12/24 08:42 Pulse Rate 87 12/12/24 08:42 Respiratory Rate 18 12/12/24 08:42 Blood Pressure 132/87 12/12/24 08:42 Pulse Oximetry 98 12/12/24 08:42 Oxygen Delivery Method Room Air 12/12/24 08:42 Temperature 97.4 F L 12/12/24 08:42 Pulse Rate 87 12/12/24 08:42 Respiratory Rate 18 12/12/24 08:42 Blood Pressure 132/87 12/12/24 08:42 Pulse Oximetry 98 12/12/24 08:42 Oxygen Delivery Method Room Air 12/12/24 08:42 Medical Decision Making [facility] Narrative Medical decision making narrative: Patient is a 44-year-old female presenting for pain control for her known adhesive capsulitis. Is already seen her primary care provider for this. He is prescribing her tramadol. I am okay prescribing her Toradol. I do not believe lab work and imaging will be beneficial for this known diagnosis. She is agreeable to this plan. She will be discharged. Discharge Plan Discharge Clinical Impression: Adhesive capsulitis Qualifiers: Laterality: left Qualified Code(s): M75.02 - Adhesive capsulitis of left shoulder Patient Disposition: Home, Self-Care Condition: Stable Instructions: Adhesive Capsulitis (ED) Additional Instructions: Continue to take the tramadol home. Also prescribed ketorolac also known as Toradol via [facility]. When using the Toradol do not take other NSAIDs, for example naproxen or ibuprofen. You can use Tylenol though as it is a different class of drugs. You can peanut picker the Toradol from [facility]. Please speak to your primary care provider about further pain control. Prescriptions: No Action ibuprofen 200 mg tablet 800 mg PO TID tramadol 50 mg tablet 50 mg PO Q6H PRN (Reason: pain) Qty: 28 0RF Rx Instructions: Limit to a max of 2 per day ibuprofen 800 mg tablet 800 mg PO TID PRN (Reason: pain) Qty: 100 2RF Follow Up/Referrals: Ibrahima Sanches MD [Primary Care Provider, Family Practice] Stand Alone Forms: [place] Info Instructions
== END 2024-12-12 09:35 | disposition home or self-care (01) ==
PROVIDERS: Emergency Provider Student in an Organized Health Care Education/Training Program; PCP Family Medicine
DX: M75.02 Adhesive capsulitis of left shoulder (principal)
CPT/HCPCS: 99282; 99283